=== PATIENT | female | born 1995 | race African-American/Black ===

== ENCOUNTER 2017-07-05 07:54 | Emergency (ER) | payer OTHER ==
--- NOTE | 2017-07-05 09:22 | RAD REPORT ---
EXAM DESCRIPTION: RAD - Chest Single View - 07/05/2017 9:17 am CLINICAL HISTORY: Productive cough COMPARISON: 02/08/2017 FINDINGS: Portable technique limits examination quality. The lungs are grossly clear. The heart is normal in size. No displaced fractures. IMPRESSION: No acute intrathoracic process suspected.
--- NOTE | 2017-07-05 09:36 | ER ---
Nurse's Notes [facility] Name: Heather Paul Age: 21 yrs Sex: Female : 1995 Arrival Date: 07/05/2017 Time: 07:56 Bed 19 Private MD: Diagnosis: Acute bronchitis;Pleurisy Presentation: 07/05 08:21 Presenting complaint: Patient states: has had productive cough, nasal congestion, no iw fever X 3 days, also has intermittent midsternal CP radiating to left side and left arm tingling, pain is 0/10 now, at worst is 7/10, described as sharp. Transition of care: patient was not received from another setting of care. Onset of symptoms was July 02, 2017. Initial Sepsis Screen: Does the patient meet any 2 criteria? No. Patient's initial sepsis screen is negative. Does the patient have a suspected source of infection? No. Patient's initial sepsis screen is negative. Care prior to arrival: None. 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 - Social history:: Smoking status: Patient/guardian denies using tobacco. Screenin:26 Abuse screen: Denies threats or abuse. Nutritional screening: No deficits noted. em Tuberculosis screening: No symptoms or risk factors identified. Fall Risk None identified. Assessment: 08:21 General: Appears in no apparent distress. comfortable, Behavior is calm, cooperative. em Pain: Denies pain. Pain does not radiate. Pain began 2-3 days ago. Neuro: Level of Consciousness is awake, alert, obeys commands, Oriented to person, place, time, situation. Cardiovascular: Heart tones S1 S2 present Capillary refill < 3 seconds Patient's skin is warm and dry. Rhythm is sinus rhythm. Respiratory: Airway is patent Respiratory effort is even, unlabored, Respiratory pattern is regular, symmetrical. Respiratory: Reports cough that is productive, Breath sounds are clear bilaterally. GI: Abdomen is flat. : Urine is clear. EENT: Oral mucosa is moist. Throat is clear is pink. Derm: Skin is intact, Skin is pink, warm \T\ dry. Musculoskeletal: Range of motion: intact in all extremities. 08:45 Reassessment: Patient appears in no apparent distress at this time. I agree with the iw assessment by Robson Ferrer LVN. 09:30 Reassessment: Patient appears in no apparent distress at this time. Patient states em feeling better. Patient states symptoms have improved. Vital Signs: 08:26 BP 107 / 73; Pulse 69; Resp 16; Temp 98.2(TE); Pulse Ox 100% on R/A; Weight 74.84 kg; iw Height 5 ft. 7 in. (170.18 cm); Pain 0/10; 09:30 BP 106 / 78; Pulse 62; Resp 16; Pulse Ox 99% on R/A; Pain 0/10; em 08:26 Body Mass Index 25.84 (74.84 kg, 170.18 cm) iw ED Course: 07:56 Patient arrived in ED. mr 08:08 Red Pacheco MD is Attending Physician. wa 08:13 Nicanor Graber PA is PHCP. jr8 08:15 Robson Ferrer LVN is Primary Nurse. em 08:23 Triage completed. iw 08:26 No provider procedures requiring assistance completed. Patient did not have IV access em during this emergency room visit. Patient maintains SpO2 saturation greater than 95% on room air. 08:26 Patient has correct armband on for positive identification. Bed in low position. Call em light in reach. Side rails up X2. Pulse ox on. NIBP on. 08:26 Arm band placed on. em 08:43 EKG done, by plant and maintenance technician. reviewed by Nicanor WELLINGTON. vh 09:18 XRAY Chest (1 view) In Process Unspecified. EDMS Administered Medications: No medications were administered Outcome: 09:35 Discharge ordered by . jr8 09:53 Discharged to home ambulatory. em 09:53 Condition: good 09:53 Discharge instructions given to patient, Instructed on discharge instructions, follow up and referral plans. medication usage, Demonstrated understanding of instructions, follow-up care, medications, Prescriptions given X 2. 09:53 Patient left the ED. em Signatures: Dispatcher [employer] EDNV Simi Tavares Robson Ferrer LVN LVN em Molly Clay, RN RN Nicanor Barker PA PA jr8 Tanisha Metz Red Pacheco MD MD wi
--- NOTE | 2017-07-05 09:36 | EDPHYS ---
Physician Documentation [facility] Name: Heather Paul Age: 21 yrs Sex: Female : 1995 Arrival Date: 07/05/2017 Time: 07:56 Bed 19 Private MD: ED Physician Red Pacheco HPI: 07/05 08:24 This 21 yrs old Black Female presents to ER via Ambulatory with complaints of jr8 cough/Chest Pain. 08:24 The patient or guardian reports cough, that is intermittent, described as moderate, jr8 with productive sputum, that is green. Onset: The symptoms/episode began/occurred acutely, 2 day(s) ago. Severity of symptoms: At their worst the symptoms were mild, in the emergency department the symptoms are unchanged. Modifying factors: The symptoms are alleviated by nothing, the symptoms are aggravated by nothing. Associated signs and symptoms: Pertinent positives: chest pain, with cough. The patient has not experienced similar symptoms in the past. The patient has not recently seen a physician. 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 - Social history:: Smoking status: Patient/guardian denies using tobacco. ROS: 08:24 Eyes: Negative for injury, pain, redness, and discharge, Neck: Negative for injury, jr8 pain, and swelling, Abdomen/GI: Negative for abdominal pain, nausea, vomiting, diarrhea, and constipation, Back: Negative for injury and pain, MS/Extremity: Negative for injury and deformity, Skin: Negative for injury, rash, and discoloration, Neuro: Negative for headache, weakness, numbness, tingling, and seizure. 08:24 ENT: Positive for rhinorrhea, sinus congestion, Negative for drainage from ear(s), ear pain, sore throat, difficulty swallowing, difficulty handling secretions, hoarseness. 08:24 Cardiovascular: Positive for chest pain, with cough, Negative for edema, orthopnea, palpitations, paroxysmal nocturnal dyspnea. 08:24 Respiratory: Positive for cough, shortness of breath, Negative for dyspnea on exertion. Exam: 08:24 Eyes: Pupils equal round and reactive to light, extra-ocular motions intact. Lids and jr8 lashes normal. Conjunctiva and sclera are non-icteric and not injected. Cornea within normal limits. Periorbital areas with no swelling, redness, or edema. ENT: Nares patent. No nasal discharge, no septal abnormalities noted. Tympanic membranes are normal and external auditory canals are clear. Oropharynx with no redness, swelling, or masses, exudates, or evidence of obstruction, uvula midline. Mucous membranes moist. Neck: Trachea midline, no thyromegaly or masses palpated, and no cervical lymphadenopathy. Supple, full range of motion without nuchal rigidity, or vertebral point tenderness. No Meningismus. Cardiovascular: Regular rate and rhythm with a normal S1 and S2. No gallops, murmurs, or rubs. Normal PMI, no JVD. No pulse deficits. Respiratory: Lungs have equal breath sounds bilaterally, clear to auscultation and percussion. No rales, rhonchi or wheezes noted. No increased work of breathing, no retractions or nasal flaring. Abdomen/GI: Soft, non-tender, with normal bowel sounds. No distension or tympany. No guarding or rebound. No evidence of tenderness throughout. Back: No spinal tenderness. No costovertebral tenderness. Full range of motion. Skin: Warm, dry with normal turgor. Normal color with no rashes, no lesions, and no evidence of cellulitis. MS/ Extremity: Pulses equal, no cyanosis. Neurovascular intact. Full, normal range of motion. Neuro: Awake and alert, GCS 15, oriented to person, place, time, and situation. Cranial nerves II-XII grossly intact. Motor strength 5/5 in all extremities. Sensory grossly intact. Cerebellar exam normal. Normal gait. 08:24 Chest/axilla: Palpation: tenderness, that is mild, of the anterior aspect of right upper chest, anterior aspect of left upper chest and mid-sternal area. Vital Signs: 08:26 BP 107 / 73; Pulse 69; Resp 16; Temp 98.2(TE); Pulse Ox 100% on R/A; Weight 74.84 kg; iw Height 5 ft. 7 in. (170.18 cm); Pain 0/10; 09:30 BP 106 / 78; Pulse 62; Resp 16; Pulse Ox 99% on R/A; Pain 0/10; em 08:26 Body Mass Index 25.84 (74.84 kg, 170.18 cm) iw MDM: 08:08 Patient medically screened. ms 09:33 Data reviewed: vital signs, nurses notes, EKG, radiologic studies, plain films, and as a result, I will discharge patient. Data interpreted: Pulse oximetry: on room air is 100 %. Interpretation: normal. Counseling: I had a detailed discussion with the patient and/or guardian regarding: the historical points, exam findings, and any diagnostic results supporting the discharge/admit diagnosis, lab results, radiology results, the need for outpatient follow up, a family practitioner, to return to the emergency department if symptoms worsen or persist or if there are any questions or concerns that arise at home. 07/05 09:00 Order name: Urine Dipstick--Ancillary (enter results) [facility] 07/05 09:00 Order name: Urine --Ancillary (enter results) [facility] 07/05 08:21 Order name: EKG; Complete Time: 08:34 [facility] 07/05 08:21 Order name: EKG - Nurse/Tech; Complete Time: 08:45 [facility] 07/05 08:21 Order name: XRAY Chest (1 view); Complete Time: 09:33 [facility] 07/05 08:21 Order name: Urine Test (obtain specimen); Complete Time: 08:56 [facility] 07/05 08:21 Order name: Urine Dipstick-Ancillary (obtain specimen); Complete Time: 08:56 jr8 Administered Medications: No medications were administered Disposition: 07/05/17 09:35 Discharged to Home. Impression: Acute bronchitis, Pleurisy. - Condition is Stable. - Discharge Instructions: Acute Bronchitis, Pleurisy. - Prescriptions for Ibuprofen 800 mg Oral Tablet - take 1 tablet by ORAL route every 12 hours As needed take with food; 20 tablet. Prednisone 20 mg Oral Tablet - take 2 tablet by ORAL route once daily for 5 days; 10 tablet. - Work release form, Medication Reconciliation Form, Thank You Letter, Antibiotic Education, Prescription Opioid Use form. - Follow up: Private Physician; When: 1 - 2 days; Reason: Recheck today's complaints, Continuance of care, Re-evaluation by your physician. - Problem is new. - Symptoms are unchanged. Addendum: 07/07/2017 06:35 Co-signature as Attending Physician, Red Pacheco MD I agree with the assessment and w a plan of care. Signatures: Dispatcher [employer] Robson Stewart, CRAB MEAT PROCESSOR CRAB MEAT PROCESSOR Molly Elmore, RN RN Nicanor Barker, PA PA jr8 Red Pacheco MD MD wa Corrections: (The following items were deleted from the chart) 07/05 09:53 09:35 07/05/2017 09:35 Discharged to Home. Impression: Acute bronchitis; Pleurisy. em Condition is Stable. Forms are Medication Reconciliation Form, Thank You Letter, Antibiotic Education, Prescription Opioid Use. Follow up: Private Physician; When: 1 - 2 days; Reason: Recheck today's complaints, Continuance of care, Re-evaluation by your physician. Problem is new. Symptoms are unchanged. jr8
[2017-07-05 09:58] VITALS: TEMP 98.2
[2017-07-05 09:59] VITALS: BP 106/78; O2SAT 99
[2017-07-05 10:02] LABS: Urine Blood TRACE (NEG); Urine Glucose NEGATIVE (NEG); Urine Protein NEGATIVE (NEG); Urine Specific Gravity 1.025 (1.005-1.030); Urine pH 6.5 (5.0-7.0)
--- NOTE | 2017-07-05 10:19 | EKG ---
Test Date: 2017-07-05 Test Time: 08:38:24 Laboratory Animal Care Veterinarian: SANTOS MEASUREMENT RESULTS: Intervals: Rate: 62 MD: 182 QRSD: 82 QT: 394 QTc: 399 [place]: P: 54 MD: 182 QRS: 56 T: 15 INTERPRETIVE STATEMENTS: Normal sinus rhythm Normal ECG Compared to ECG 02/08/2017 11:37:46 Sinus arrhythmia no longer present T-wave abnormality no longer present Electronically Signed On 07-05-17 10:18:34 CDT by Royer Valdez
== END 2017-07-05 09:53 | disposition home or self-care (01) ==
LOC: ER 07:54
DX: J20.9 Acute bronchitis, unspecified (principal); R09.1 Pleurisy
CPT/HCPCS: 71045; 81003; 81025; 93005; 99285

== ENCOUNTER 2018-02-07 13:02 | Emergency (ER) | payer OTHER ==
[2018-02-07 14:18] LABS: Urine Blood TRACE (NEG); Urine Glucose NEGATIVE (NEG); Urine Protein NEGATIVE (NEG); Urine pH 8.5 (5.0-7.0)
--- NOTE | 2018-02-07 15:00 | ER ---
Nurse's Notes [facility] Name: Heather Paul Age: 22 yrs Sex: Female : 1995 Arrival Date: 02/07/2018 Time: 13:03 Bed 18 Private MD: Diagnosis: Influenza due to certain identified influenza viruses Presentation: 02/07 13:07 Presenting complaint: Patient states: i went to the doctor yesterday and they told me i tw2 had the flu but i feel very dehydrated and i am short of breath. Transition of care: patient was not received from another setting of care. Onset of symptoms was February 07, 2018. Risk Assessment: Do you want to hurt yourself or someone else? Patient reports no desire to harm self or others. Initial Sepsis Screen: Does the patient meet any 2 criteria? No. Patient's initial sepsis screen is negative. Does the patient have a suspected source of infection? No. Patient's initial sepsis screen is negative. Care prior to arrival: None. 13:07 Method Of Arrival: Ambulatory tw2 13:07 Acuity: ALISA 4 tw2 13:08 Presenting complaint: Patient states: and i am having chest pains. 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 - Social history:: Smoking status: Patient/guardian denies using tobacco. - Ebola Screening: : Patient denies travel to an Ebola-affected area in the 21 days before illness onset. Screenin:30 Abuse screen: Denies threats or abuse. Denies injuries from another. Nutritional aj screening: No deficits noted. Tuberculosis screening: No symptoms or risk factors identified. Fall Risk None identified. Assessment: 13:40 General: Appears in no apparent distress. comfortable, Behavior is calm, cooperative, aj appropriate for age. Pain: Denies pain. Neuro: Level of Consciousness is awake, alert, obeys commands, Oriented to person, place, time, situation, Appropriate for age. Respiratory: Airway is patent Respiratory effort is even, unlabored, Respiratory pattern is regular, symmetrical. GI: Reports nausea. Derm: Skin is intact, is healthy with good turgor, Skin is pink, warm \T\ dry. normal. 14:30 Reassessment: Patient appears in no apparent distress at this time. Patient and/or ph family updated on plan of care and expected duration. Pain level reassessed. Patient is alert, oriented x 3, equal unlabored respirations, skin warm/dry/pink. 15:44 Reassessment: Patient appears in no apparent distress at this time. Patient and/or ph family updated on plan of care and expected duration. Pain level reassessed. Patient is alert, oriented x 3, equal unlabored respirations, skin warm/dry/pink. Pt d/c home w/ work note. Vital Signs: 13:07 BP 126 / 70; Pulse 91; Resp 17; Temp 98.1(O); Pulse Ox 100% on R/A; Pain 8/10; tw2 15:44 BP 118 / 64; Pulse 87; Resp 18; Temp 97.8; Pulse Ox 98% on R/A; ph ED Course: 13:03 Patient arrived in ED. sb2 13:07 Triage completed. tw2 13:08 Arm band placed on. tw2 13:09 Farheen Lopez FNP-C is [facility]. kb 13:09 Sinan Sepulveda MD is Attending Physician. kb 13:09 Kaia Braga, RN is Primary Nurse. aj 13:54 Urine Dipstick--Ancillary (enter results) Sent. aj 13:54 Urine --Ancillary (enter results) Sent. aj 15:45 No provider procedures requiring assistance completed. Patient did not have IV access ph during this emergency room visit. 15:46 Patient has correct armband on for positive identification. ph Administered Medications: 13:50 Drug: Zofran 4 mg Route: PO; aj Outcome: 15:00 Discharge ordered by . kb 15:45 Discharged to home ambulatory. ph 15:45 Condition: good 15:45 Discharge instructions given to patient, Instructed on discharge instructions, follow up and referral plans. Demonstrated understanding of instructions, follow-up care. 15:46 Patient left the ED. ph Signatures: Farheen Lopez FNP-C FNP-Kaia Ariza RN Marni Robbins RN RN ph Natalie Hernández RN RN tw2 Billeau, Gabrielle sb2
--- NOTE | 2018-02-07 15:00 | EDPHYS ---
Physician Documentation [facility] Name: Heather Paul Age: 22 yrs Sex: Female : 1995 Arrival Date: 02/07/2018 Time: 13:03 Bed 18 Private MD: ED Physician Sinan Sepulveda HPI: 02/07 13:53 This 22 yrs old Black Female presents to ER via Ambulatory with complaints of Flu kb Symptoms. 13:53 The patient or guardian reports cough, that is intermittent, described as moderate, kb with no sputum, flu symptoms, myalgias. Onset: The symptoms/episode began/occurred 3 day(s) ago. Severity of symptoms: At their worst the symptoms were mild, moderate, in the emergency department the symptoms are unchanged. Modifying factors: The symptoms are alleviated by nothing, the symptoms are aggravated by nothing. Associated signs and symptoms: Pertinent positives: fever, vomiting, Pertinent negatives: chest pain, diarrhea, ear ache, nausea, rhinorrhea, sore throat. The patient has not experienced similar symptoms in the past. The patient has been recently seen by a physician: the patient's primary care provider, yesterday, with similar presenting complaints, and apparently given a diagnosis of flu. Pt reports cough, shortness of breath, malaise, weakness, fatigue, vomiting, and body aches. Was diagnosed with the flu yesterday, but "they didn't give me anything.". 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 - Social history:: Smoking status: Patient/guardian denies using tobacco. - Ebola Screening: : Patient denies travel to an Ebola-affected area in the 21 days before illness onset. ROS: 13:52 ENT: Negative for injury, pain, and discharge, Neck: Negative for injury, pain, and kb swelling, Cardiovascular: Negative for chest pain, palpitations, and edema, Abdomen/GI: Negative for abdominal pain, nausea, vomiting, diarrhea, and constipation, Back: Negative for injury and pain, : Negative for injury, bleeding, discharge, and swelling, MS/Extremity: Negative for injury and deformity, Skin: Negative for injury, rash, and discoloration, Neuro: Negative for headache, weakness, numbness, tingling, and seizure. 13:52 Constitutional: Positive for body aches, chills, fatigue, fever, malaise, Negative for poor PO intake, weight loss. 13:52 Respiratory: Positive for cough, shortness of breath. Exam: 13:52 Constitutional: This is a well developed, well nourished patient who is awake, alert, kb and in no acute distress. Head/Face: Normocephalic, atraumatic. ENT: Nares patent. No nasal discharge, no septal abnormalities noted. Tympanic membranes are normal and external auditory canals are clear. Oropharynx with no redness, swelling, or masses, exudates, or evidence of obstruction, uvula midline. Mucous membranes moist. Neck: Trachea midline, no thyromegaly or masses palpated, and no cervical lymphadenopathy. Supple, full range of motion without nuchal rigidity, or vertebral point tenderness. No Meningismus. Chest/axilla: Normal chest wall appearance and motion. Nontender with no deformity. No lesions are appreciated. Cardiovascular: Regular rate and rhythm with a normal S1 and S2. No gallops, murmurs, or rubs. Normal PMI, no JVD. No pulse deficits. Respiratory: Lungs have equal breath sounds bilaterally, clear to auscultation and percussion. No rales, rhonchi or wheezes noted. No increased work of breathing, no retractions or nasal flaring. Abdomen/GI: Soft, non-tender, with normal bowel sounds. No distension or tympany. No guarding or rebound. No evidence of tenderness throughout. Skin: Warm, dry with normal turgor. Normal color with no rashes, no lesions, and no evidence of cellulitis. MS/ Extremity: Pulses equal, no cyanosis. Neurovascular intact. Full, normal range of motion. Neuro: Awake and alert, GCS 15, oriented to person, place, time, and situation. Cranial nerves II-XII grossly intact. Motor strength 5/5 in all extremities. Sensory grossly intact. Cerebellar exam normal. Normal gait. Vital Signs: 13:07 BP 126 / 70; Pulse 91; Resp 17; Temp 98.1(O); Pulse Ox 100% on R/A; Pain 8/10; tw2 15:44 BP 118 / 64; Pulse 87; Resp 18; Temp 97.8; Pulse Ox 98% on R/A; ph MDM: 13:09 Patient medically screened. kb 13:51 Data reviewed: vital signs, nurses notes. Data interpreted: Pulse oximetry: on room air kb is 100 %. Interpretation: normal. Counseling: I had a detailed discussion with the patient and/or guardian regarding: the historical points, exam findings, and any diagnostic results supporting the discharge/admit diagnosis, lab results, radiology results, the need for outpatient follow up, a family practitioner, to return to the emergency department if symptoms worsen or persist or if there are any questions or concerns that arise at home. 02/07 13:51 Order name: Urine Dipstick--Ancillary (enter results) lt1 02/07 13:51 Order name: Urine --Ancillary (enter results) lt1 02/07 13:23 Order name: Chest Single View XRAY kb 02/07 14:19 Order name: Urine --Ancillary; Complete Time: 14:19 EDMS 02/07 14:19 Order name: Urine Dipstick-Ancillary; Complete Time: 14:19 EDMS 02/07 13:23 Order name: PO challenge; Complete Time: 13:34 kb 02/07 13:23 Order name: Urine Dipstick-Ancillary (obtain specimen); Complete Time: 13:54 kb Administered Medications: 13:50 Drug: Zofran 4 mg Route: PO; gretchen Disposition: 17:42 Co-signature as Attending Physician, Sinan Sepulveda MD I agree with the assessment and rn plan of care. Disposition: 02/07/18 15:00 Discharged to Home. Impression: Influenza due to certain identified influenza viruses. - Condition is Stable. - Discharge Instructions: Influenza, Adult, [id number]. - Medication Reconciliation Form, Thank You Letter, Antibiotic Education, Prescription Opioid Use, Work release form form. - Follow up: Emergency Department; When: As needed; Reason: Worsening of condition. Follow up: Private Physician; When: 2 - 3 days; Reason: Recheck today's complaints, Continuance of care, Re-evaluation by your physician. Signatures: Dispatcher [employer] EDFarheen Devine, STRETCHER DRIER OPERATOR-C STRETCHER DRIER OPERATOR-Kaia Ariza RN Sinan Rinaldi MD MD rn Hall, Patricia, RN RN Hernández, CHRISTEN Estrada RN tw2 Corrections: (The following items were deleted from the chart) 15:46 15:00 02/07/2018 15:00 Discharged to Home. Impression: Influenza due to certain ph identified influenza viruses. Condition is Stable. Forms are Medication Reconciliation Form, Thank You Letter, Antibiotic Education, Prescription Opioid Use. Follow up: Emergency Department; When: As needed; Reason: Worsening of condition. Follow up: Private Physician; When: 2 - 3 days; Reason: Recheck today's complaints, Continuance of care, Re-evaluation by your physician. kb
[2018-02-07 16:12] VITALS: BP 118/64; TEMP 97.8; O2SAT 98
--- NOTE | 2018-02-07 17:44 | RAD REPORT ---
EXAM DESCRIPTION: Omar Single View02/07/2018 2:23 pm CLINICAL HISTORY: sob COMPARISON: February 2017 FINDINGS: The lungs appear clear of acute infiltrate. The heart is normal size IMPRESSION: No acute abnormalities displayed
== END 2018-02-07 15:46 | disposition home or self-care (01) ==
LOC: ER 13:02
DX: J11.1 Influenza due to unidentified influenza virus with other respiratory manifestations (principal)
CPT/HCPCS: 71045; 81003; 81025; 99283

== ENCOUNTER 2018-06-15 10:19 | Emergency (ER) | payer OTHER ==
[2018-06-15 11:03] LABS: Urine Blood TRACE (NEG); Urine Glucose NEGATIVE (NEG); Urine Protein NEGATIVE (NEG); Urine Specific Gravity 1.025 (1.005-1.030); Urine pH 6.5 (5.0-7.0)
[2018-06-15 11:31] LABS: Urine Bacteria 20-50 /HPF (<20); Urine Culture Reflex Order REFLEXED; Urine Mucus 1+ /HPF (NONE SEEN)
--- NOTE | 2018-06-15 12:04 | EDPHYS ---
Physician Documentation [facility] Name: Heather Paul Age: 22 yrs Sex: Female : 1995 Arrival Date: 06/15/2018 Time: 10:23 Bed 20 Private MD: Unknown, Unknown ED Physician Raymond Shelley HPI: 06/15 10:57 This 22 yrs old Black Female presents to ER via Ambulatory with complaints of Abdominal jmm Pain, Fever. 10:57 The patient or guardian reports cough, described as moderate. Onset: The jmm symptoms/episode began/occurred gradually, 2 week(s) ago. This is a 22 year old female with a history of asthma that presents to the ED with complaints of cough for 2 week. Patient states she was recently recovering from bronchitis. Patient states she developed a fever with congestion 2 days ago. Denies sore throat. Patient is also concerned she is . Patient has had intermittent episodes of abdominal pain and pelvic pain. Patient states she missed her period last month. Patient states she saw her pcp with a negative upt. Patient states she took a home test at home last night which was positive. Patient currently denies abdominal pain, denies pelvic pain, denies vomiting, denies diarrhea. . 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 - Social history:: Smoking status: Patient/guardian denies using tobacco. - Ebola Screening: : Patient negative for fever greater than or equal to 101.5 degrees Fahrenheit, and additional compatible Ebola Virus Disease symptoms Patient denies exposure to infectious person Patient denies travel to an Ebola-affected area in the 21 days before illness onset No symptoms or risks identified at this time. ROS: 10:57 Constitutional: Positive for fever. jmm 10:57 ENT: Positive for sinus congestion. 10:57 Respiratory: Positive for cough. 10:57 Abdomen/GI: Positive for abdominal pain, Negative for nausea and vomiting, diarrhea. 10:57 All other systems are negative. Exam: 10:57 Constitutional: This is a well developed, well nourished patient who is awake, alert, jmm and in no acute distress. Head/Face: atraumatic. Eyes: EOMI, no conjunctival erythema appreciated 10:57 Neck: Trachea midline, Supple Chest/axilla: Normal chest wall appearance and motion. Cardiovascular: Regular rate and rhythm. No edema appreciated 10:57 ENT: Posterior pharynx: erythema, that is moderate, exudate, is not appreciated. 10:57 Respiratory: the patient does not display signs of respiratory distress, Respirations: normal, Breath sounds: are clear throughout. 10:57 Abdomen/GI: Inspection: abdomen appears normal, Bowel sounds: normal, Palpation: abdomen is soft and non-tender, in all quadrants. 10:57 Abdomen/GI: Palpation: abdomen is soft and non-tender. 10:57 Back: pain, CVA tenderness, is absent. 10:57 Musculoskeletal/extremity: ROM: intact in all extremities. 10:57 Skin: Appearance: Color: normal in color. 10:57 Neuro: Orientation: is normal, Mentation: is normal, Memory: is normal. 10:57 Psych: Behavior/mood is pleasant, cooperative. Vital Signs: 10:55 BP 103 / 57; Pulse 85; Resp 16; Temp 98.1(O); Pulse Ox 100% on R/A; Pain 6/10; iw MDM: 10:57 Patient medically screened. [facility] 12:03 Data reviewed: vital signs, nurses notes. Counseling: I had a detailed discussion with inga the patient and/or guardian regarding: the historical points, exam findings, and any diagnostic results supporting the discharge/admit diagnosis, the need for outpatient follow up, to return to the emergency department if symptoms worsen or persist or if there are any questions or concerns that arise at home. 12:25 ED course: Patient is alert and non toxic in appearance in the ED. Abdomen is soft and jmm non tender to palpation. I do not suspect an acute intraabdominal process. Patient was given strict return precautions if symptoms worsen. Patient understood and agrees with the plan of care. . 06/15 10:56 Order name: Urine Dipstick--Ancillary (enter results); Complete Time: 11:36 sg 06/15 10:56 Order name: Urine --Ancillary (enter results); Complete Time: 11:36 06/15 10:56 Order name: Urine Microscopic Only; Complete Time: 11:36 06/15 10:58 Order name: Flu; Complete Time: 12:00 [facility] 06/15 10:58 Order name: Strep; Complete Time: 12:00 [facility] 06/15 11:33 Order name: Urine Culture EDMS 06/15 11:41 Order name: Throat Culture EDMS Administered Medications: No medications were administered Disposition: 12:03 Chart complete. Chart complete. [facility] Disposition: 06/15/18 12:04 Discharged to Home. Impression: Influenza due to certain identified influenza viruses, Urinary tract infection, site not specified. - Condition is Stable. - Discharge Instructions: Urinary Tract Infection, Adult. - Prescriptions for cefdinir 300 mg Oral capsule - take 1 capsule by ORAL route every 12 hours; 20 capsule. Tamiflu 75 mg Oral Capsule - take 1 tablet by ORAL route every 12 hours for 5 days; 10 tablet. - Medication Reconciliation Form, Thank You Letter, Antibiotic Education, Prescription Opioid Use form. - Follow up: Private Physician; When: 2 - 3 days; Reason: Recheck today's complaints, Continuance of care, Re-evaluation by your physician. Addendum: 06/18/2018 08:23 Co-signature as Attending Physician, Raymond Shelley MD I agree with the assessment and k dr plan of care. Signatures: Dispatcher [employer] [facility] Raymond Shelley MD MD [facility] Salvador Stephen PA PA [facility] Molly Clay RN RN iw Corrections: (The following items were deleted from the chart) 06/15 12:20 12:04 06/15/2018 12:04 Discharged to Home. Impression: Influenza due to certain identified influenza viruses; Urinary tract infection, site not specified. Condition is Stable. Forms are Medication Reconciliation Form, Thank You Letter, Antibiotic Education, Prescription Opioid Use. Follow up: Private Physician; When: 2 - 3 days; Reason: Recheck today's complaints, Continuance of care, Re-evaluation by your physician. [facility]
--- NOTE | 2018-06-15 12:04 | ER ---
Nurse's Notes [facility] Name: Heather Paul Age: 22 yrs Sex: Female : 1995 Arrival Date: 06/15/2018 Time: 10:23 Bed 20 Private MD: Unknown, Unknown Diagnosis: Influenza due to certain identified influenza viruses;Urinary tract infection, site not specified Presentation: 06/15 10:50 Presenting complaint: Presenting complaint: Patient states: had 2 positive home iw tests and one negative test at her doctor office, states she had blood drawn and her hormone level was elevated, now c/o lower abd pain, denies vaginal bleeding, denies urinary s/s. 10:51 Transition of care: patient was not received from another setting of care. Onset of iw symptoms was June 15, 2018. Risk Assessment: Do you want to hurt yourself or someone else? Patient reports no desire to harm self or others. Initial Sepsis Screen: Does the patient meet any 2 criteria? No. Patient's initial sepsis screen is negative. Does the patient have a suspected source of infection? No. Patient's initial sepsis screen is negative. Care prior to arrival: None. 10:51 Method Of Arrival: Ambulatory 10:51 Acuity: ALISA 3 iw Triage Assessment: 12:15 General: Behavior is calm, cooperative. 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 - Social history:: Smoking status: Patient/guardian denies using tobacco. - Ebola Screening: : Patient negative for fever greater than or equal to 101.5 degrees Fahrenheit, and additional compatible Ebola Virus Disease symptoms Patient denies exposure to infectious person Patient denies travel to an Ebola-affected area in the 21 days before illness onset No symptoms or risks identified at this time. Screenin:10 Abuse screen: Denies threats or abuse. Nutritional screening: No deficits noted. em Tuberculosis screening: No symptoms or risk factors identified. Fall Risk None identified. Assessment: 11:20 General: Appears in no apparent distress. comfortable, Behavior is calm, cooperative, em Reports fever for. Pain: Complains of pain in suprapubic area Pain currently is 6 out of 10 on a pain scale. Neuro: Level of Consciousness is awake, alert, obeys commands, Oriented to person, place, time, situation. Cardiovascular: Capillary refill < 3 seconds Patient's skin is warm and dry. Respiratory: Airway is patent Respiratory effort is even, unlabored, Respiratory pattern is regular, symmetrical. GI: Abdomen is flat, Bowel sounds present X 4 quads. Abd is soft and non tender X 4 quads. Patient currently denies nausea, vomiting. : Denies burning with urination, discharge, urinary frequency, vaginal bleeding. Derm: Skin is intact, is healthy with good turgor, Skin is pink, warm \T\ dry. Musculoskeletal: Capillary refill < 3 seconds, Range of motion: intact in all extremities. 12:19 Reassessment: Patient appears in no apparent distress at this time. Patient and/or iw family updated on plan of care and expected duration. Pain level reassessed. Patient is alert, oriented x 3, equal unlabored respirations, skin warm/dry/pink. General: Appears in no apparent distress. Pain: Complains of pain in abdomen. Neuro: Level of Consciousness is awake, alert, obeys commands, Moves all extremities. Full function. Cardiovascular: Patient's skin is warm and dry. GI: Bowel sounds present X 4 quads. Abd is soft and non tender X 4 quads. Derm: Skin is intact, is healthy with good turgor. Musculoskeletal: Range of motion: intact in all extremities. Vital Signs: 10:55 BP 103 / 57; Pulse 85; Resp 16; Temp 98.1(O); Pulse Ox 100% on R/A; Pain 6/10; iw ED Course: 10:23 Patient arrived in ED. ag5 10:23 Unknown, Unknown is Private Physician. 5 10:41 [facility] 10:41 Raymond Shelley MD is Attending Physician. [facility] 10:55 Triage completed. iw 10:56 Arm band placed on. iw 11:07 Strep Sent. 5 11:08 Patient has correct armband on for positive identification. Bed in low position. Call [facility] light in reach. Pulse ox on. NIBP on. 11:08 Flu Sent. mh5 11:08 Urine collected: clean catch specimen, cloudy, Flu and/or RSV swab sent to lab. Strep 5 swab sent to lab. 11:17 Robson Ferrer LVN is Primary Nurse. em 12:10 No provider procedures requiring assistance completed. Patient did not have IV access em during this emergency room visit. Administered Medications: No medications were administered Outcome: 12:04 Discharge ordered by . vernon 12:10 Discharged to home ambulatory. em 12:10 Condition: good 12:10 Discharge instructions given to patient, Instructed on discharge instructions, follow up and referral plans. medication usage, Demonstrated understanding of instructions, follow-up care, medications, Prescriptions given X 2. 12:20 Patient left the ED. Signatures: Salvador Stephen PA PA jmm Munoz, Edgar, LVN LVN em Molly Clay, CHRISTEN RN Simi Quinonez 5 Gatito Burdick 5 Corrections: (The following items were deleted from the chart) 10:55 10:50 Presenting complaint: iw iw
[2018-06-15 12:30] VITALS: BP 103/57; TEMP 98.1; O2SAT 100
== END 2018-06-15 12:20 | disposition home or self-care (01) ==
LOC: ER 10:19
DX: J10.1 Influenza due to other identified influenza virus with other respiratory manifestations (principal); N39.0 Urinary tract infection, site not specified; J45.909 Unspecified asthma, uncomplicated
CPT/HCPCS: 81003; 81015; 81025; 87070; 87081; 87086; 87088; 87804; 99283

== ENCOUNTER 2018-07-19 05:12 | Emergency (ER) | payer OTHER ==
--- OUTSIDE RECORDS SUMMARY | 2018-07-19 05:14 | XMS REPORT ---
:1995 [facility] Address [address] [place] [address] Dr. Prado [address] [place] [id number] Care Team Providers Name Role Phone Unavailable Unavailable Unavailable Problems This patient has no known problems. Allergies, Adverse Reactions, Alerts This patient has no known allergies or adverse reactions. Medications This patient has no known medications.
[2018-07-19] MEDS ORDERED: ACETAMINOPHEN 500 MG TAB ONE (06:28)
[2018-07-19] MEDS ORDERED: ONDANSETRON 4 MG/2 ML VIAL ONE (06:28)
[2018-07-19] MEDS ORDERED: KETOROLAC 30 MG/ML INJ ONE (06:28)
[2018-07-19 06:36] LABS: Urine Bacteria 20-50 /HPF (<20); Urine RBC <5 /HPF (NONE SEEN)
[2018-07-19 06:37] LABS: Absolute Lymphocytes (CBC) 2.2 K/uL (0.7-4.9); Absolute Monocytes 0.6 K/uL (0.1-1.3); Absolute Neutrophil 2.8 K/uL (1.8-8.0); Basophils % 1.4 % (0-1.3); Eosinophils % 4.2 % (0-4.4); Hematocrit 39.6 % (36.0-45.0); Lymphocytes % 37.3 % (15.3-44.8); MPV 9.6 fL (7.6-11.3); Monocytes % 9.8 % (3.3-12.3); RBC Red Blood Cell Count 4.68 M/uL (3.86-4.86)
[2018-07-19 06:37] LABS: Urine Culture Reflex Order REFLEXED
[2018-07-19 06:53] LABS: BUN Blood Urea Nitrogen 13 mg/dL (7-18); Bicarbonate 28 mmol/L (21-32); Glucose Level 79 mg/dL (74-106); Potassium 3.7 mmol/L (3.5-5.1); Sodium Level 140 mmol/L (136-145)
--- NOTE | 2018-07-19 07:19 | ER ---
Nurse's Notes [facility] Name: Heather Paul Age: 22 yrs Sex: Female : 1995 Arrival Date: 07/19/2018 Time: 05:13 Bed 19 Private MD: Diagnosis: Other and unspecified ovarian cysts-right Presentation: 07/19 05:21 Presenting complaint: Patient states: I am having really bad pelvic pain and back pain. ed1 Transition of care: patient was not received from another setting of care. Onset of symptoms was July 17, 2018. Risk Assessment: Do you want to hurt yourself or someone else? Patient reports no desire to harm self or others. Initial Sepsis Screen: Does the patient meet any 2 criteria? No. Patient's initial sepsis screen is negative. Does the patient have a suspected source of infection? No. Patient's initial sepsis screen is negative. Care prior to arrival: None. 05:21 Method Of Arrival: Ambulatory ed1 05:21 Acuity: ALISA 3 ed1 Triage Assessment: 05:23 General: Appears uncomfortable, Behavior is calm, cooperative. Pain: Complains of pain ed1 in low back area and right lower quadrant Pain currently is 7 out of 10 on a pain scale. Quality of pain is described as sharp. EENT: No signs and/or symptoms were reported regarding the EENT system. Neuro: Level of Consciousness is awake, alert, obeys commands, Oriented to person, place, time, situation. Cardiovascular: Denies chest pain, Heart tones S1 S2 present. Respiratory: Airway is patent Respiratory effort is even, unlabored, Respiratory pattern is regular, symmetrical, Breath sounds are clear bilaterally. GI: Abdomen is non-distended, Bowel sounds present X 4 quads. Abd is soft and non tender X 4 quads. Reports lower abdominal pain, Patient currently denies diarrhea, nausea, vomiting. : Denies burning with urination. Derm: Skin is intact, is healthy with good turgor, Skin is dry, Skin is normal, Skin temperature is warm. Musculoskeletal: Circulation, motion, and sensation intact. Range of motion: intact in all extremities, Swelling absent. 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 - Social history:: Smoking status: Patient/guardian denies using tobacco. - Ebola Screening: : Patient negative for fever greater than or equal to 101.5 degrees Fahrenheit, and additional compatible Ebola Virus Disease symptoms Patient denies exposure to infectious person Patient denies travel to an Ebola-affected area in the 21 days before illness onset No symptoms or risks identified at this time. Screenin:26 Abuse screen: Denies threats or abuse. Denies injuries from another. Nutritional ed1 screening: No deficits noted. Tuberculosis screening: No symptoms or risk factors identified. Fall Risk None identified. Assessment: 05:26 General: See triage assessment. Neuro: Level of Consciousness is awake, alert, obeys ed1 commands, Oriented to person, place, time, situation, Calender Wind Up Tender are equal bilaterally Moves all extremities. Gait is steady, Speech is normal, Facial symmetry appears normal, Pupils are PERRLA, Intact Denies weakness blurred vision dizziness, difficulty swallowing, paresthesias numbness headache photophobia diplopia. 06:55 Reassessment: Patient appears in no apparent distress at this time. No changes from ed1 previously documented assessment. Patient and/or family updated on plan of care and expected duration. Pain level reassessed. Patient is alert, oriented x 3, equal unlabored respirations, skin warm/dry/pink. Patient states feeling better. Patient states symptoms have improved. 07:00 Reassessment: RECD REPORT FROM EMILY VELÁSQUEZ. 22YO BF P/W PELVIC AND BACK PAIN SINCE LAST bp PM. ALL CURRENT ORDERS COMPLETED, RESULTS PENDING FOR DISPO. 07:36 Reassessment: PT D/C HOME AMBULATORY, DX WITH OVARIAN CYST. bp Vital Signs: 05:23 BP 99 / 76; Pulse 71; Resp 16; Temp 98.2(O); Pulse Ox 100% on R/A; Weight 77.11 kg; ed1 Height 5 ft. 7 in. (170.18 cm); Pain 7/10; 06:57 BP 99 / 64; Pulse 58; Resp 18; Temp 98.2(O); Pulse Ox 99% on R/A; Pain 5/10; ed1 05:23 Body Mass Index 26.63 (77.11 kg, 170.18 cm) ed1 ED Course: 05:13 Patient arrived in ED. am2 05:21 Emily Zurita, RN is Primary Nurse. ed1 05:22 Triage completed. ed1 05:23 Arm band placed on Patient placed in an exam room, on a stretcher, on pulse oximetry. ed1 05:26 Awaiting ED provider evaluation. ed1 05:26 Patient has correct armband on for positive identification. Placed in gown. Bed in low ed1 position. Call light in reach. Side rails up X 1. Pulse ox on. NIBP on. Warm blanket given. 06:02 Initial lab(s) drawn, by ED staff, sent to lab. Inserted saline lock: 20 gauge in right ed1 antecubital area, using aseptic technique. 06:15 Thompson Lr PA is PHCP. cp 06:15 Red Pacheco MD is Attending Physician. cp 06:55 Ultrasound completed. Patient tolerated well. aa4 06:56 Transvaginal Study Probe In Process Unspecified. EDMS 07:02 Primary Nurse role handed off by Emily Zurita, CHRISTEN ed1 07:11 David Layne, CHRISTEN is Primary Nurse. bp 07:40 No provider procedures requiring assistance completed. IV discontinued, intact, bp bleeding controlled, No redness/swelling at site. Pressure dressing applied. Administered Medications: 06:24 Drug: Tylenol 1000 mg Route: PO; ed1 06:56 Follow up: Response: No adverse reaction; Pain is decreased ed1 06:24 Drug: Zofran 4 mg Route: IVP; Site: right antecubital; ed1 06:57 Follow up: Response: No adverse reaction; Nausea is decreased ed1 06:24 Drug: TORadol 30 mg Route: IVP; Site: right antecubital; ed1 06:57 Follow up: Response: No adverse reaction; Pain is decreased ed1 Outcome: 07:19 Discharge ordered by . cp 07:40 Discharged to home ambulatory. bp 07:40 Condition: stable 07:40 Discharge instructions given to patient, Instructed on discharge instructions, follow up and referral plans. medication usage, Demonstrated understanding of instructions, follow-up care, medications, Prescriptions given X 1. 07:41 Patient left the ED. bp Signatures: Dispatcher [employer] EDMS Kaia Ward aa4 Emily Zurita RN RN ed1 Thompson Lr PA PA cp Moreno, Amanda am2 David Layne, RN RN bp Corrections: (The following items were deleted from the chart) 06:57 06:55 Reassessment: Patient appears in no apparent distress at this time. No changes ed1 from previously documented assessment. Patient and/or family updated on plan of care and expected duration. Pain level reassessed. Patient is alert, oriented x 3, equal unlabored respirations, skin warm/dry/pink. Patient states symptoms have not improved. ed1
--- NOTE | 2018-07-19 07:20 | EDPHYS ---
Physician Documentation [facility] Name: Heather Paul Age: 22 yrs Sex: Female : 1995 Arrival Date: 07/19/2018 Time: 05:13 Bed 19 Private MD: ED Physician Red Pacheco HPI: 07/19 06:43 This 22 yrs old Black Female presents to ER via Ambulatory with complaints of Pelvic cp Pain, Back Pain. 06:43 The patient presents with pelvic pain. Onset: The symptoms/episode began/occurred this cp morning. 06:43 Associated signs and symptoms: Pertinent positives: cramping, low back pain, Pertinent cp negatives: constipation, diarrhea, dysuria, fever, hematuria, vaginal bleeding, vaginal discharge. 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 - Social history:: Smoking status: Patient/guardian denies using tobacco. - Ebola Screening: : Patient negative for fever greater than or equal to 101.5 degrees Fahrenheit, and additional compatible Ebola Virus Disease symptoms Patient denies exposure to infectious person Patient denies travel to an Ebola-affected area in the 21 days before illness onset No symptoms or risks identified at this time. ROS: 06:43 Eyes: Negative for injury, pain, redness, and discharge. cp 06:43 Constitutional: Negative for body aches, chills, fever, poor PO intake. 06:43 ENT: Negative for drainage from ear(s), ear pain, sore throat, difficulty swallowing, difficulty handling secretions. 06:43 Cardiovascular: Negative for chest pain. 06:43 Respiratory: Negative for cough, shortness of breath, wheezing. 06:43 Abdomen/GI: Positive for abdominal pain, of the lower abdomen, Negative for vomiting, diarrhea, constipation, black/tarry stool, rectal bleeding. 06:43 Back: Positive for pain at rest, of the low back area. 06:43 : Positive for pelvic pain, Negative for urinary symptoms, vaginal bleeding, vaginal discharge. 06:43 Skin: Negative for rash. 06:43 Neuro: Negative for altered mental status, headache, weakness. 06:43 All other systems are negative. Exam: 06:50 Constitutional: The patient appears in no acute distress, alert, awake, non-toxic, well cp developed, well nourished. 06:50 Head/Face: Normocephalic, atraumatic. cp 06:50 Eyes: Periorbital structures: appear normal, Conjunctiva: normal, no exudate, no injection, Lids and lashes: appear normal, bilaterally. 06:50 ENT: External ear(s): are unremarkable, Nose: is normal, Mouth: Lips: moist, Oral mucosa: moist, Posterior pharynx: is normal, airway is patent. 06:50 Chest/axilla: Inspection: normal, Palpation: is normal, no crepitus, no tenderness. 06:50 Cardiovascular: Rate: normal, Rhythm: regular. 06:50 Respiratory: the patient does not display signs of respiratory distress, Respirations: normal, no use of accessory muscles, no retractions, no splinting, no tachypnea, labored breathing, is not present, Breath sounds: are clear throughout, no decreased breath sounds, no stridor, no wheezing. 06:50 Abdomen/GI: Inspection: abdomen appears normal, Bowel sounds: active, all quadrants, Palpation: soft, in all quadrants, mild abdominal tenderness, in the right lower quadrant and left lower quadrant, rebound tenderness, is not appreciated, involuntary guarding, is not appreciated. 06:50 Back: pain, that is mild, of the low back area, ROM is normal. 06:50 Special observations: no evidence of discomfort. 07:17 : Pelvic Exam: the exam is deferred. cp Vital Signs: 05:23 BP 99 / 76; Pulse 71; Resp 16; Temp 98.2(O); Pulse Ox 100% on R/A; Weight 77.11 kg; ed1 Height 5 ft. 7 in. (170.18 cm); Pain 7/10; 06:57 BP 99 / 64; Pulse 58; Resp 18; Temp 98.2(O); Pulse Ox 99% on R/A; Pain 5/10; ed1 05:23 Body Mass Index 26.63 (77.11 kg, 170.18 cm) ed1 MDM: 05:52 Patient medically screened. ut 07:17 Data reviewed: vital signs, nurses notes, lab test result(s), radiologic studies, cp ultrasound, and as a result, I will discharge patient. ED course: US tech reports small hemorrhagic cyst right ovary. 07/19 05:50 Order name: Basic Metabolic Panel ut 07/19 05:50 Order name: CBC with Diff; Complete Time: 06:55 ut 07/19 06:55 Interpretation: Normal except: BASO% 1.4. 07/19 05:50 Order name: Urine Microscopic Only; Complete Time: 06:55 ut 07/19 06:55 Interpretation: Normal except: UBACT 20-50; SQEPI 10-20. 07/19 05:51 Order name: Basic Metabolic Panel; Complete Time: 06:55 [facility] 07/19 06:55 Interpretation: Normal except: CL 108. 07/19 06:18 Order name: Urine Dipstick--Ancillary (enter results) [facility] 07/19 06:18 Order name: Urine --Ancillary (enter results) [facility] 07/19 05:50 Order name: Urine Test (obtain specimen); Complete Time: 06:24 ut 07/19 05:50 Order name: IV Saline Lock; Complete Time: 06:24 ut 07/19 06:37 Order name: Transvaginal Study Probe [facility] 07/19 06:38 Order name: Urine Culture [facility] 07/19 05:50 Order name: Labs collected and sent; Complete Time: 06:24 ut 07/19 05:50 Order name: NPO; Complete Time: 05:53 ut 07/19 05:50 Order name: Urine Dipstick-Ancillary (obtain specimen); Complete Time: 06:24 ut Administered Medications: 06:24 Drug: Tylenol 1000 mg Route: PO; ed1 06:56 Follow up: Response: No adverse reaction; Pain is decreased ed1 06:24 Drug: Zofran 4 mg Route: IVP; Site: right antecubital; ed1 06:57 Follow up: Response: No adverse reaction; Nausea is decreased ed1 06:24 Drug: TORadol 30 mg Route: IVP; Site: right antecubital; ed1 06:57 Follow up: Response: No adverse reaction; Pain is decreased ed1 Disposition: 07:57 Co-signature as Attending Physician, Red Pacheco MD I agree with the assessment and wa plan of care. Disposition: 07/19/18 07:19 Discharged to Home. Impression: Other and unspecified ovarian cysts - right. - Condition is Stable. - Discharge Instructions: Ovarian Cyst. - Prescriptions for Naprosyn 500 mg Oral Tablet - take 1 tablet by ORAL route 2 times per day take with food; 20 tablet. - Medication Reconciliation Form, Thank You Letter, Antibiotic Education, Prescription Opioid Use form. - Follow up: Private Physician; When: 1 week; Reason: Recheck today's complaints. - Problem is new. - Symptoms have improved. Signatures: Dispatcher [employer] EDMS Emily Zurita RN RN ed1 Thompson Lr PA PA cp Appiah, William, MD MD ut David Layne, RN RN bp Corrections: (The following items were deleted from the chart) 06:37 05:52 Pelvis Complete+US.RAD.BRZ ordered. EDVT EDMS 07:41 07:19 07/19/2018 07:19 Discharged to Home. Impression: Other and unspecified ovarian bp cysts - right. Condition is Stable. Forms are Medication Reconciliation Form, Thank You Letter, Antibiotic Education, Prescription Opioid Use. Follow up: Private Physician; When: 1 week; Reason: Recheck today's complaints. Problem is new. Symptoms have improved. cp
--- NOTE | 2018-07-19 08:45 | RAD REPORT ---
EXAM DESCRIPTION: US - Transvaginal Study Probe - 07/19/2018 6:56 am CLINICAL HISTORY: Pelvic pain COMPARISON: 2017 FINDINGS: The uterus measures 8 x 5 x 6cm. A fibroid is not seen. Endometrial stripe measures 15 mil limeters The ovaries are normal in size and echotexture. An adnexal mass is not noted. A 2 centimeter hemorrhagic right ovarian cyst No significant free fluid is seen. IMPRESSION: A 2 centimeter hemorrhagic right ovarian cyst
[2018-07-19 08:55] LABS: Urine Blood TRACE (NEG); Urine Glucose NEGATIVE (NEG); Urine Protein TRACE (NEG); Urine Specific Gravity 1.025 (1.005-1.030); Urine pH 6.5 (5.0-7.0)
[2018-07-19 11:55] VITALS: TEMP 98.2
[2018-07-19 11:57] VITALS: BP 99/64; O2SAT 99
== END 2018-07-19 07:41 | disposition home or self-care (01) ==
LOC: ER 05:12
DX: N83.201 Unspecified ovarian cyst, right side (principal)
CPT/HCPCS: 36415; 76830; 80048; 81003; 81015; 81025; 85025; 87086; 87088; 96374; 96375; 99284; J2405

== ENCOUNTER 2018-08-26 08:38 | Emergency (ER) | payer OTHER ==
--- OUTSIDE RECORDS SUMMARY | 2018-08-26 08:41 | XMS REPORT ---
:1995 [facility] Address [address] [place] [address] Dr. Prado [address] [place] [id number] Care Team Providers Name Role Phone Unavailable Unavailable Unavailable Problems This patient has no known problems. Allergies, Adverse Reactions, Alerts This patient has no known allergies or adverse reactions. Medications This patient has no known medications.
[2018-08-26] MEDS ORDERED: ONDANSETRON 4 MG (ODT) TAB ONE (09:03)
[2018-08-26] MEDS ORDERED: FENTANYL CITR 100 MCG/2 ML ONE (09:03)
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
--- NOTE | 2018-08-26 09:40 | EDPHYS ---
Physician Documentation [facility] Name: Heather Paul Age: 23 yrs Sex: Female : 1995 Arrival Date: 08/26/2018 Time: 08:40 Bed 20 Private MD: ED Physician Thompson Rudd HPI: 08/26 09:20 This 23 yrs old Black Female presents to ER via EMS with complaints of Arm Injury. jr8 09:20 The patient or guardian complains of decreased range of motion, pain, tenderness. The jr8 complaints affect the anterior aspect of left shoulder and left bicep. Context: The problem was sustained at home, resulted from a fall. Onset: The symptoms/episode began/occurred acutely, today. Treatment prior to arrival includes: sling. Modifying factors: The symptoms are alleviated by nothing. the symptoms are aggravated by movement. Associated signs and symptoms: The patient has no apparent associated signs or symptoms. Severity of symptoms: At their worst the symptoms were moderate, in the emergency department the symptoms are unchanged. The patient has not experienced similar symptoms in the past. The patient has not recently seen a physician. Patient stated that her sandal broke causing her to fall onto left shoulder. Denies hitting head or neck . 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 - Social history:: Smoking status: Patient/guardian denies using tobacco. - Ebola Screening: : Patient negative for fever greater than or equal to 101.5 degrees Fahrenheit, and additional compatible Ebola Virus Disease symptoms Patient denies exposure to infectious person Patient denies travel to an Ebola-affected area in the 21 days before illness onset No symptoms or risks identified at this time. ROS: 09:20 Eyes: Negative for injury, pain, redness, and discharge, ENT: Negative for injury, jr8 pain, and discharge, Neck: Negative for injury, pain, and swelling, Cardiovascular: Negative for chest pain, palpitations, and edema, Respiratory: Negative for shortness of breath, cough, wheezing, and pleuritic chest pain, Abdomen/GI: Negative for abdominal pain, nausea, vomiting, diarrhea, and constipation, Back: Negative for injury and pain, Skin: Negative for injury, rash, and discoloration, Neuro: Negative for headache, weakness, numbness, tingling, and seizure. 09:20 MS/extremity: Positive for decreased range of motion, pain, tenderness, of the left shoulder. Exam: 09:20 Eyes: Pupils equal round and reactive to light, extra-ocular motions intact. Lids and jr8 lashes normal. Conjunctiva and sclera are non-icteric and not injected. Cornea within normal limits. Periorbital areas with no swelling, redness, or edema. ENT: Nares patent. No nasal discharge, no septal abnormalities noted. Tympanic membranes are normal and external auditory canals are clear. Oropharynx with no redness, swelling, or masses, exudates, or evidence of obstruction, uvula midline. Mucous membranes moist. Neck: Trachea midline, no thyromegaly or masses palpated, and no cervical lymphadenopathy. Supple, full range of motion without nuchal rigidity, or vertebral point tenderness. No Meningismus. Cardiovascular: Regular rate and rhythm with a normal S1 and S2. No gallops, murmurs, or rubs. Normal PMI, no JVD. No pulse deficits. Respiratory: Lungs have equal breath sounds bilaterally, clear to auscultation and percussion. No rales, rhonchi or wheezes noted. No increased work of breathing, no retractions or nasal flaring. Abdomen/GI: Soft, non-tender, with normal bowel sounds. No distension or tympany. No guarding or rebound. No evidence of tenderness throughout. Back: No spinal tenderness. No costovertebral tenderness. Full range of motion. Skin: Warm, dry with normal turgor. Normal color with no rashes, no lesions, and no evidence of cellulitis. Neuro: Awake and alert, GCS 15, oriented to person, place, time, and situation. Cranial nerves II-XII grossly intact. Motor strength 5/5 in all extremities. Sensory grossly intact. Cerebellar exam normal. Normal gait. 09:20 Musculoskeletal/extremity: Extremities: grossly normal except: noted in the left shoulder: decreased ROM, pain, tenderness, ROM: Pain with active and passive ROM. Limited motion due to pain, Circulation is intact in all extremities. Pulses: noted to be 2+ in the right radial artery and left radial artery, Sensation intact. No obvious deformity . Vital Signs: 08:44 BP 117 / 86; Pulse 107; Resp 22; Pulse Ox 100% on R/A; Weight 77.11 kg; Height 5 ft. 7 em in. (170.18 cm); Pain 10/10; 09:48 BP 102 / 55; Pulse 79; Resp 18; Pulse Ox 99% on R/A; em 08:44 Body Mass Index 26.63 (77.11 kg, 170.18 cm) em Procedures: 09:36 Splinting: Splint applied to left shoulder using sling, applied by nurse. Examined by jr8 me, post splint application: neurovascular intact, 2+ distal pulses palpable, brisk capillary refill noted, Patient tolerated well. MDM: 08:40 Patient medically screened. jr8 09:36 Data reviewed: vital signs, nurses notes, radiologic studies, plain films. Data jr8 interpreted: Pulse oximetry: on room air is 100 %. Interpretation: normal. Counseling: I had a detailed discussion with the patient and/or guardian regarding: the historical points, exam findings, and any diagnostic results supporting the discharge/admit diagnosis, radiology results, the need for outpatient follow up, a orthopedic surgeon, to return to the emergency department if symptoms worsen or persist or if there are any questions or concerns that arise at home. ED course: Discussed with patient no radiographic evidence of acute fracture. Due to amount of pain would be good idea to f/u with orthopedics soon for possibility of rotator cuff injury . 08/26 08:40 Order name: XRAY Shoulder LEFT 2 view; Complete Time: 09:46 jr8 08/26 08:43 Order name: Humerus Left; Complete Time: 09:46 EDMS 08/26 09:35 Order name: Sling; Complete Time: 09:55 jr8 Administered Medications: 08:52 Not Given (Other Intervention Used): fentaNYL (PF) 50 mcg IVP once em 08:52 Not Given (Other Intervention Used): Zofran 4 mg IVP once; over 2 minutes em 08:52 Drug: fentaNYL (PF) 50 mcg Route: IM; Site: right deltoid; em 09:55 Follow up: Response: No adverse reaction; Pain is decreased em 08:52 Drug: Zofran 4 mg Route: PO; em 09:55 Follow up: Response: No adverse reaction em Disposition: 08/27 09:47 Co-signature as Attending Physician, Thompson Rudd MD I agree with the assessment and zak plan of care. Disposition: 08/26/18 09:38 Discharged to Home. Impression: Pain in left shoulder. - Condition is Stable. - Discharge Instructions: Rotator Cuff Injury, Shoulder Pain. - Prescriptions for Ibuprofen 800 mg Oral Tablet - take 1 tablet by ORAL route every 12 hours As needed take with food; 20 tablet. Tramadol 50 mg Oral Tablet - take 1 tablet by ORAL route every 8 hours as needed; 12 tablet. - Medication Reconciliation Form, Thank You Letter, Antibiotic Education, Prescription Opioid Use form. - Follow up: Stan Figueroa MD; When: 2 - 3 days; Reason: Recheck today's complaints, Continuance of care, Re-evaluation by your physician. - Problem is new. - Symptoms have improved. Signatures: Dispatcher [employer] [facility] Thompson Rudd MD MD cha Munoz, Edgar, MANAGER GARAGE MANAGER GARAGE em Nicanor Garber, PA PA jr8 Corrections: (The following items were deleted from the chart) 08/26 08:43 08:41 Humerus Left W Compar+RAD.RAD.BRZ ordered. [facility] 09:57 09:38 08/26/2018 09:38 Discharged to Home. Impression: Pain in left shoulder. Condition em is Stable. Forms are Medication Reconciliation Form, Thank You Letter, Antibiotic Education, Prescription Opioid Use. Follow up: Stan Figueroa; When: 2 - 3 days; Reason: Recheck today's complaints, Continuance of care, Re-evaluation by your physician. Problem is new. Symptoms have improved. jr8
--- NOTE | 2018-08-26 09:45 | RAD REPORT ---
EXAM DESCRIPTION: RAD - Shoulder Left 2 View - 08/26/2018 9:07 am CLINICAL HISTORY: Fall, left shoulder pain COMPARISON: None. TECHNIQUE: Internal and external rotation views of the left shoulder were obtained. FINDINGS: There is no fracture or dislocation. AC joint is normal in appearance. No acute or suspici ous findings. IMPRESSION: Negative two-view left shoulder examination.
--- NOTE | 2018-08-26 09:45 | RAD REPORT ---
EXAM DESCRIPTION: RAD - Humerus Left - 08/26/2018 9:07 am CLINICAL HISTORY: Fall, left arm pain COMPARISON: None. FINDINGS: No fracture is identified. There is no dislocation or periosteal reaction noted. No forei gn body or other soft tissue abnormality. IMPRESSION: Negative left humerus examination.
[2018-08-26 10:21] VITALS: BP 102/55; O2SAT 99
== END 2018-08-26 09:57 | disposition home or self-care (01) ==
LOC: ER 08:38
DX: M25.512 Pain in left shoulder (principal)
CPT/HCPCS: 96372; 99284; J3010

== ENCOUNTER 2018-12-23 14:56 | Emergency (ER) | payer OTHER ==
[2018-12-23] MEDS ORDERED: ACETAMINOPHEN 500 MG TAB ONE (15:34)
--- NOTE | 2018-12-23 15:58 | RAD REPORT ---
EXAM DESCRIPTION: RAD - Foot Right 3 View - 12/23/2018 3:50 pm CLINICAL HISTORY: Right foot pain status post injury FINDINGS: No fracture or dislocation is seen
--- NOTE | 2018-12-23 16:16 | ER ---
Nurse's Notes [facility] Name: Heather Paul Age: 23 yrs Sex: Female : 1995 Arrival Date: 12/23/2018 Time: 14:59 Bed 30 Private MD: Diagnosis: Pain in right ankle and joints of right foot Presentation: 12/23 15:02 Presenting complaint: Right foot pain after kicking concrete step yesterday. Ambulated hb to triage with steady gait. Transition of care: patient was not received from another setting of care. Onset of symptoms was December 22, 2018. Risk Assessment: Do you want to hurt yourself or someone else? Patient reports no desire to harm self or others. Initial Sepsis Screen: Does the patient meet any 2 criteria? No. Patient's initial sepsis screen is negative. Does the patient have a suspected source of infection? No. Patient's initial sepsis screen is negative. Care prior to arrival: Medication(s) given: Motrin, at 1000. 15:02 Method Of Arrival: Ambulatory hb 15:02 Acuity: ALISA 4 hb Historical: - Allergies: 15:03 NKA; hb - PMHx: 15:03 Asthma; hb - PSHx: 15:03 None; hb - Immunization history:: Adult Immunizations up to date. - Social history:: Smoking status: Patient/guardian denies using tobacco. - Ebola Screening: : No symptoms or risks identified at this time. Screenin:46 Abuse screen: Denies threats or abuse. Nutritional screening: No deficits noted. tr5 Tuberculosis screening: No symptoms or risk factors identified. Fall Risk None identified. Assessment: 15:46 General: Appears in no apparent distress. Behavior is calm, cooperative, appropriate tr5 for age. Pain: Complains of pain in right foot Pain does not radiate. Neuro: Level of Consciousness is awake, alert, obeys commands, Oriented to person, place, time, Nutrition Aide are equal bilaterally. Cardiovascular: Heart tones present. Respiratory: Airway is patent Respiratory effort is even, unlabored, Respiratory pattern is regular, symmetrical. GI: No signs and/or symptoms were reported involving the gastrointestinal system. : No signs and/or symptoms were reported regarding the genitourinary system. EENT: No signs and/or symptoms were reported regarding the EENT system. Derm: No signs and/or symptoms reported regarding the dermatologic system. Musculoskeletal: Capillary refill < 3 seconds, Range of motion: limited in right ankle. 16:54 Reassessment: Patient appears in no apparent distress at this time. Patient and/or tr5 family updated on plan of care and expected duration. Pain level reassessed. Patient is alert, oriented x 3, equal unlabored respirations, skin warm/dry/pink. Vital Signs: 15:03 BP 122 / 68; Pulse 66; Resp 16; Temp 98.3; Pulse Ox 100% on R/A; Weight 76.2 kg; Height hb 5 ft. 7 in. (170.18 cm); Pain 8/10; 15:03 Body Mass Index 26.31 (76.20 kg, 170.18 cm) hb ED Course: 14:59 Patient arrived in ED. as 15:02 Triage completed. hb 15:03 Arm band placed on. hb 15:04 Thompson Lr PA is PHCP. cp 15:04 Demetrio Hsu MD is Attending Physician. cp 15:08 Roc Trevino, CHRISTEN is Primary Nurse. tr5 15:46 Bed in low position. Call light in reach. Side rails up X 1. tr5 15:48 XRAY Foot RIGHT 3 View In Process Unspecified. EDMS 16:14 Mark Zhang MD is Referral Physician. cp 16:55 No provider procedures requiring assistance completed. Patient did not have IV access tr5 during this emergency room visit. Administered Medications: 15:36 Drug: Tylenol 1000 mg Route: PO; tr5 16:20 Follow up: Response: Pain is decreased tr5 Outcome: 16:15 Discharge ordered by MD. cp 16:55 Discharged to home ambulatory. tr5 16:55 Condition: stable 16:55 Discharge instructions given to patient, Instructed on discharge instructions, follow up and referral plans. medication usage, Demonstrated understanding of instructions, follow-up care, medications, Prescriptions given X 1. 16:59 Patient left the ED. tr5 Signatures: Dispatcher [employer] EDMS Darline Meeks as Thompson Lr PA PA cp Marge Romano RN RN hb Roc Trevino RN RN tr5 Corrections: (The following items were deleted from the chart) 15:03 15:02 Care prior to arrival: None. hb hb
--- NOTE | 2018-12-23 16:16 | EDPHYS ---
Physician Documentation [facility] Name: Heather Paul Age: 23 yrs Sex: Female : 1995 Arrival Date: 12/23/2018 Time: 14:59 Bed 30 Private MD: ED Physician Demetrio Hsu HPI: 12/23 15:32 This 23 yrs old Black Female presents to ER via Ambulatory with complaints of Foot cp Injury. 15:32 The patient presents with pain, that is acute, swelling, tenderness. The complaints cp affect the lateral aspect of right foot and dorsum of right foot. Context: resulted from a direct blow, struck foot against concrete step, the patient can partially bear weight, the patient is able to ambulate, with moderate difficulty. Onset: The symptoms/episode began/occurred yesterday. Associated signs and symptoms: Pertinent positives: numbness, Pertinent negatives calf tenderness, rash, weakness. Treatment prior to arrival includes: over the counter medications, NSAIDS. Historical: - Allergies: 15:03 NKA; hb - PMHx: 15:03 Asthma; hb - PSHx: 15:03 None; hb - Immunization history:: Adult Immunizations up to date. - Social history:: Smoking status: Patient/guardian denies using tobacco. - Ebola Screening: : No symptoms or risks identified at this time. ROS: 15:33 Constitutional: Negative for body aches, chills, fever. cp 15:33 MS/extremity: Positive for pain, paresthesias, swelling, tenderness, of the right foot, Negative for decreased range of motion, deformity. 15:33 Skin: Negative for rash. 15:33 All other systems are negative. Exam: 15:40 Constitutional: The patient appears in no acute distress, alert, awake, non-toxic, well cp developed, well nourished. 15:40 Head/Face: Normocephalic, atraumatic. cp 15:40 Eyes: Periorbital structures: appear normal, Conjunctiva: normal, no exudate, no injection, Lids and lashes: appear normal, bilaterally. 15:40 ENT: External ear(s): are unremarkable, Nose: is normal, Mouth: Lips: moist, Oral mucosa: moist, Posterior pharynx: Airway: no evidence of obstruction, patent. 15:40 Chest/axilla: Inspection: normal. 15:40 Cardiovascular: Rate: normal. 15:40 Respiratory: the patient does not display signs of respiratory distress, Respirations: normal. 15:40 Abdomen/GI: Inspection: abdomen appears normal. 15:40 Musculoskeletal/extremity: Extremities: grossly normal except: noted in the dorsum of right foot and lateral aspect of right foot: pain, swelling, tenderness, There is no evidence of deformity, Perfusion: the extremity is normally perfused throughout, Sensation intact. 15:40 Skin: cellulitis, is not appreciated, injury, is not appreciated, no rash present. Vital Signs: 15:03 BP 122 / 68; Pulse 66; Resp 16; Temp 98.3; Pulse Ox 100% on R/A; Weight 76.2 kg; Height hb 5 ft. 7 in. (170.18 cm); Pain 8/10; 15:03 Body Mass Index 26.31 (76.20 kg, 170.18 cm) hb MDM: 15:08 Patient medically screened. cp 15:45 Differential diagnosis: dislocation, closed fracture, contusion, sprain. cp 16:15 Data reviewed: vital signs, nurses notes, radiologic studies, plain films. cp 16:15 Test interpretation: by ED physician or midlevel provider: plain radiologic studies, cp xrays of right foot negative for fracture. Counseling: I had a detailed discussion with the patient and/or guardian regarding: the historical points, exam findings, and any diagnostic results supporting the discharge/admit diagnosis, radiology results, to return to the emergency department if symptoms worsen or persist or if there are any questions or concerns that arise at home. Response to treatment: the patient's symptoms have mildly improved after treatment, and as a result, I will discharge patient. ED course: VSS. Patient given post op shoe and crutches for comfort. Will discharge to home for continued monitoring. 12/23 15:31 Order name: XRAY Foot RIGHT 3 View; Complete Time: 16:34 cp 12/23 16:34 Interpretation: Report reviewed. cp 12/23 16:15 Order name: Crutches cp 12/23 16:15 Order name: Walking boot cp Administered Medications: 15:36 Drug: Tylenol 1000 mg Route: PO; tr5 16:20 Follow up: Response: Pain is decreased tr5 Disposition: 17:15 Chart complete. cp Disposition: 12/23/18 16:15 Discharged to Home. Impression: Pain in right ankle and joints of right foot. - Condition is Stable. - Discharge Instructions: Elastic Bandage and RICE, Foot Pain. - Prescriptions for Ibuprofen 800 mg Oral Tablet - take 1 tablet by ORAL route every 8 hours As needed take with food; 30 tablet. - Medication Reconciliation Form, Thank You Letter, Antibiotic Education, Prescription Opioid Use form. - Follow up: Mark Zhang MD; When: 1 week; Reason: Worsening of condition. - Problem is new. - Symptoms have improved. Signatures: Dispatcher [employer] EDMS Thompson Lr PA PA cp Baxter, Heather, RN RN hb Roc Trevino RN RN tr5 Corrections: (The following items were deleted from the chart) 16:59 16:15 12/23/2018 16:15 Discharged to Home. Impression: Pain in right ankle and joints tr5 of right foot. Condition is Stable. Forms are Medication Reconciliation Form, Thank You Letter, Antibiotic Education, Prescription Opioid Use. Follow up: Mark Zhang; When: 1 week; Reason: Worsening of condition. Problem is new. Symptoms have improved. cp
[2018-12-23 17:04] VITALS: BP 122/68; TEMP 98.3; O2SAT 100
== END 2018-12-23 16:59 | disposition home or self-care (01) ==
LOC: ER 14:56
DX: M25.571 Pain in right ankle and joints of right foot (principal)
CPT/HCPCS: 99283

== ENCOUNTER 2019-05-21 04:09 | Emergency (ER) | payer OTHER ==
--- OUTSIDE RECORDS SUMMARY | 2019-05-21 04:12 | XMS REPORT ---
:1995 [facility] Address [address] [place] [address] Dr. Prado [address] [place] [id number] Care Team Providers Name Role Phone Unavailable Unavailable Unavailable Problems This patient has no known problems. Allergies, Adverse Reactions, Alerts This patient has no known allergies or adverse reactions. Medications This patient has no known medications.
--- NOTE | 2019-05-21 05:03 | ER ---
Nurse's Notes [facility] Name: Heather Paul Age: 23 yrs Sex: Female : 1995 Arrival Date: 05/21/2019 Time: 04:11 Bed 2 Private MD: Diagnosis: Cough Presentation: 05/20 04:28 Chief complaint: Patient states: Cough x1 week; States cough with some sputum; Denies lp1 any fever; denies fever; States using albuterol inhaler and nebs at home. Coronavirus screen: The patient has NOT traveled to a country currently being monitored by the [facility] within the last 14 days. The patient has NOT had contact with any known and/or suspected case of coronavirus. Ebola Screen: No symptoms or risks identified at this time. Initial Sepsis Screen: Does the patient meet any 2 criteria? No. Patient's initial sepsis screen is negative. Does the patient have a suspected source of infection? No. Patient's initial sepsis screen is negative. Risk Assessment: Do you want to hurt yourself or someone else? Patient reports no desire to harm self or others. Onset of symptoms was May 21, 2019. 04:28 Method Of Arrival: Ambulatory lp1 04:28 Acuity: ALISA 4 lp1 BIN FILLER: 04:31 LMP N/A - Depo-provera lp1 Historical: - Allergies: 04:30 NKA; lp1 - Home Meds: 04:30 Albuterol Inhl [Active]; Albuterol Nebulizer [Active]; lp1 - PMHx: 04:30 Asthma; lp1 - PSHx: 04:30 None; lp1 - Immunization history:: Adult Immunizations up to date. - Social history:: Smoking status: Patient denies any tobacco usage or history of. Screenin:29 Abuse screen: Denies threats or abuse. Nutritional screening: No deficits noted. ah Tuberculosis screening: No symptoms or risk factors identified. Fall Risk None identified. Assessment: 04:26 General: Appears in no apparent distress. Behavior is calm. General: Pt states that she ah has been having to do neb treatments at home and during the night for the last 3 nights. She does not feel that she is getting any relief. Pain: Denies pain. Neuro: Level of Consciousness is awake, alert, Oriented to person, place, time, situation. Cardiovascular: Heart tones S1 S2 present Capillary refill < 3 seconds Patient's skin is warm and dry. Respiratory: Reports cough that is productive, since x3 days Airway is patent Respiratory effort is even, unlabored, Respiratory pattern is regular, symmetrical, Sputum is green Breath sounds are coarse bilaterally. GI: No signs and/or symptoms were reported involving the gastrointestinal system. : No signs and/or symptoms were reported regarding the genitourinary system. EENT: No signs and/or symptoms were reported regarding the EENT system. Derm: No signs and/or symptoms reported regarding the dermatologic system. Vital Signs: 04:28 BP 120 / 90; Pulse 77; Resp 18; Temp 98.7(O); Pulse Ox 100% on R/A; Weight 79.38 kg lp1 (R); Height 5 ft. 7 in. (170.18 cm); Pain 0/10; 04:28 Body Mass Index 27.41 (79.38 kg, 170.18 cm) lp1 ED Course: 04:11 Patient arrived in ED. cl3 04:20 Mj Van MD is Attending Physician. tw4 04:25 Arcelia Valdez, RN is Primary Nurse. 04:29 Triage completed. lp1 04:29 Arm band placed on. lp1 04:31 Patient has correct armband on for positive identification. lp1 Administered Medications: No medications were administered Outcome: 05:02 Discharge ordered by . tw4 05:07 Patient left the ED. mw2 Signatures: Gaby Lyons RN RN 1 Mj Van MD MD 4 Sanket Coronado 2 Bernardo Muller cl3 Arcelia Valdez, RN RN
--- NOTE | 2019-05-21 05:08 | EDPHYS ---
Physician Documentation [facility] Name: Heather Paul Age: 23 yrs Sex: Female : 1995 Arrival Date: 05/21/2019 Time: 04:11 Bed 2 Private MD: ED Physician Mj Van HPI: 05/20 06:33 This 23 yrs old Black Female presents to ER via Ambulatory with complaints of Cough, tw4 Asthma Exacerbation. 06:33 The patient or guardian reports cough. Onset: The symptoms/episode began/occurred tw4 today. Severity of symptoms: At their worst the symptoms were moderate. Modifying factors: The symptoms are alleviated by nothing, the symptoms are aggravated by. The patient has not experienced similar symptoms in the past. [employer] SAL[employer] REPRESENTATIVE: 04:31 LMP N/A - Depo-provera lp1 Historical: - Allergies: 04:30 NKA; lp1 - Home Meds: 04:30 Albuterol Inhl [Active]; Albuterol Nebulizer [Active]; lp1 - PMHx: 04:30 Asthma; lp1 - PSHx: 04:30 None; lp1 - Immunization history:: Adult Immunizations up to date. - Social history:: Smoking status: Patient denies any tobacco usage or history of. ROS: 06:33 Constitutional: Negative for fever, chills, and weight loss, Eyes: Negative for injury, tw4 pain, redness, and discharge, Cardiovascular: Negative for chest pain, palpitations, and edema, Abdomen/GI: Negative for abdominal pain, nausea, vomiting, diarrhea, and constipation, Back: Negative for injury and pain, MS/Extremity: Negative for injury and deformity, Skin: Negative for injury, rash, and discoloration, Neuro: Negative for headache, weakness, numbness, tingling, and seizure. 06:33 Respiratory: Positive for cough, shortness of breath, wheezing, Negative for dyspnea on exertion, hemoptysis, orthopnea, pleurisy. Exam: 06:33 Constitutional: This is a well developed, well nourished patient who is awake, alert, tw4 and in no acute distress. Head/Face: Normocephalic, atraumatic. Chest/axilla: Normal chest wall appearance and motion. Nontender with no deformity. No lesions are appreciated. Cardiovascular: Regular rate and rhythm with a normal S1 and S2. No gallops, murmurs, or rubs. Normal PMI, no JVD. No pulse deficits. Respiratory: Lungs have equal breath sounds bilaterally, clear to auscultation and percussion. No rales, rhonchi or wheezes noted. No increased work of breathing, no retractions or nasal flaring. Abdomen/GI: Soft, non-tender, with normal bowel sounds. No distension or tympany. No guarding or rebound. No evidence of tenderness throughout. Skin: Warm, dry with normal turgor. Normal color with no rashes, no lesions, and no evidence of cellulitis. MS/ Extremity: Pulses equal, no cyanosis. Neurovascular intact. Full, normal range of motion. Neuro: Awake and alert, GCS 15, oriented to person, place, time, and situation. Cranial nerves II-XII grossly intact. Motor strength 5/5 in all extremities. Sensory grossly intact. Cerebellar exam normal. Normal gait. Vital Signs: 04:28 BP 120 / 90; Pulse 77; Resp 18; Temp 98.7(O); Pulse Ox 100% on R/A; Weight 79.38 kg lp1 (R); Height 5 ft. 7 in. (170.18 cm); Pain 0/10; 04:28 Body Mass Index 27.41 (79.38 kg, 170.18 cm) lp1 MDM: 04:20 Patient medically screened. tw4 05:03 Medical screen evaluation completed. [facility] emergency medical condition absent. tw4 06:33 Differential Diagnosis: Obstructed Airway Bronchitis Influenza Upper Respiratory tw4 Infection. Data reviewed: vital signs, nurses notes. Data interpreted: Pulse oximetry: Interpretation: normal. Counseling: I had a detailed discussion with the patient and/or guardian regarding: the historical points, exam findings, and any diagnostic results supporting the discharge/admit diagnosis. Special discussion: I discussed with the patient/guardian in detail that at this point there is no indication for admission to the hospital. It is understood, however, that if the symptoms persist or worsen the patient needs to return immediately for re-evaluation. Administered Medications: No medications were administered Disposition: 06:43 Chart complete. tw4 Disposition: 05/21/19 05:02 Discharged to Home. Impression: Cough. - Condition is Stable. - Discharge Instructions: Cough, Adult. - Medication Reconciliation Form, Thank You Letter, Antibiotic Education, Prescription Opioid Use form. Signatures: Gaby Lyons RN RN lp1 Mj Van MD MD tw4 Sanket Coronado mw2 Corrections: (The following items were deleted from the chart) 05:07 05:02 05/21/2019 05:02 Discharged to Home. Impression: Cough. Condition is Stable. mw2 Forms are Medication Reconciliation Form, Thank You Letter, Antibiotic Education, Prescription Opioid Use. tw4
[2019-05-21 05:18] VITALS: BP 120/90; TEMP 98.7; O2SAT 100
== END 2019-05-21 05:07 | disposition home or self-care (01) ==
LOC: ER 04:09
DX: R05 Cough (principal); J45.909 Unspecified asthma, uncomplicated
CPT/HCPCS: 99281

== ENCOUNTER 2020-03-14 03:34 | Emergency (ER) | payer OTHER ==
--- OUTSIDE RECORDS SUMMARY | 2020-03-14 03:36 | XMS REPORT | Continuity of Care Document ---
:1995 Author Organization [facility] Address [address] [place] [address] Care Team Providers Name Role Phone Eric Silveira MD Attending Clinician Problems This patient has no known problems. Allergies, Adverse Reactions, Alerts This patient has no known allergies or adverse reactions. Medications This patient has no known medications. Procedures This patient has no known procedures. Encounters Start End Encounter Admission Attending Care Care Encounter Source Date/Time Date/Time Type Type Clinicians Facility Department ID 2019-05-21 2019-05-21 Emergency [facility] [id number] 05:29:16 07:07:00 Maggie Helton [id number] [place] [id number] [place] [id number] Results This patient has no known results.
[2020-03-14] MEDS ORDERED: predniSONE 20 MG TAB ONE (04:10)
[2020-03-14 06:13] LABS: SARS-COV-2 RT PCR NEGATIVE (NEGATIVE)
--- NOTE | 2020-03-14 06:23 | EDPHYS ---
Physician Documentation [facility] Name: Heather Paul Age: 24 yrs Sex: Female : 1995 Arrival Date: 03/14/2020 Time: 03:36 Bed 7 Private MD: ED Physician Mathieu Miramontes HPI: 03/14 04:09 This 24 yrs old Black Female presents to ER via Ambulatory with complaints of Asthma mh7 Exacerbation, Breathing Difficulty. 04:09 The patient presents to the emergency department with wheezing, Current therapy: mh7 albuterol nebs, that began without any particular precipitating event, the patient was reported to have audible wheezing, productive cough, Pre-hospital care: med neb, albuterol. Onset: The symptoms/episode began/occurred 2 day(s) ago. Modifying factors: The symptoms are alleviated by nothing, the symptoms are aggravated by cold weather. Associated signs and symptoms: Pertinent negatives: chest pain, choking, fever, headache, nausea, palpitations, rash, vomiting. Severity of symptoms: At their worst the symptoms were moderate last night, in the emergency department the symptoms have improved moderately. The patient has experienced similar episodes in the past, several times. CARE ASST: 03:52 LMP 02/17/2020 lp1 Historical: - Allergies: 03:52 NKA; lp1 - Home Meds: 03:52 Albuterol Inhl [Active]; Albuterol Inhl [Active]; Claritin Oral [Active]; Zyrtec Oral lp1 [Active]; - PMHx: 03:52 Asthma; lp1 - PSHx: 03:52 None; lp1 - Immunization history:: Adult Immunizations up to date, Flu vaccine is up to date. - Social history:: Smoking status: Patient denies any tobacco usage or history of. ROS: 04:09 Constitutional: Negative for fever, chills, and weight loss, Eyes: Negative for injury, mh7 pain, redness, and discharge, ENT: Negative for injury, pain, and discharge, Neck: Negative for injury, pain, and swelling, Cardiovascular: Negative for chest pain, palpitations, and edema, Abdomen/GI: Negative for abdominal pain, nausea, vomiting, diarrhea, and constipation, Back: Negative for injury and pain, : Negative for injury, bleeding, discharge, and swelling, MS/Extremity: Negative for injury and deformity, Skin: Negative for injury, rash, and discoloration, Neuro: Negative for headache, weakness, numbness, tingling, and seizure, Psych: Negative for depression, anxiety, suicide ideation, homicidal ideation, and hallucinations, Allergy/Immunology: Negative for hives, rash, and allergies, Endocrine: Negative for neck swelling, polydipsia, polyuria, polyphagia, and marked weight changes, Hematologic/Lymphatic: Negative for swollen nodes, abnormal bleeding, and unusual bruising. Exam: 04:09 Constitutional: This is a well developed, well nourished patient who is awake, alert, mh7 and in no acute distress. Head/Face: Normocephalic, atraumatic. Eyes: Pupils equal round and reactive to light, extra-ocular motions intact. Lids and lashes normal. Conjunctiva and sclera are non-icteric and not injected. Cornea within normal limits. Periorbital areas with no swelling, redness, or edema. Neck: Trachea midline, no thyromegaly or masses palpated, and no cervical lymphadenopathy. Supple, full range of motion without nuchal rigidity, or vertebral point tenderness. No Meningismus. Chest/axilla: Normal chest wall appearance and motion. Nontender with no deformity. No lesions are appreciated. Cardiovascular: Regular rate and rhythm with a normal S1 and S2. No gallops, murmurs, or rubs. Normal PMI, no JVD. No pulse deficits. 04:09 Abdomen/GI: Soft, non-tender, with normal bowel sounds. No distension or tympany. No guarding or rebound. No evidence of tenderness throughout. Back: No spinal tenderness. No costovertebral tenderness. Full range of motion. Skin: Warm, dry with normal turgor. Normal color with no rashes, no lesions, and no evidence of cellulitis. MS/ Extremity: Pulses equal, no cyanosis. Neurovascular intact. Full, normal range of motion. Neuro: Awake and alert, GCS 15, oriented to person, place, time, and situation. Cranial nerves II-XII grossly intact. Motor strength 5/5 in all extremities. Sensory grossly intact. Cerebellar exam normal. Normal gait. Psych: Awake, alert, with orientation to person, place and time. Behavior, mood, and affect are within normal limits. 04:09 Respiratory: the patient does not display signs of respiratory distress, Respirations: prolonged exhalation, that is mild, Breath sounds: wheezing: expiratory that is mild, is scattered, Respiratory rate: 18 Vital Signs: 03:48 BP 110 / 81; Pulse 98; Resp 18; Temp 98.9(TE); Pulse Ox 98% on R/A; Weight 80.74 kg lp1 (R); Height 5 ft. 7 in. (170.18 cm); Pain 0/10; 06:56 BP 108 / 86; Pulse 96; Resp 16; Temp 98.5; Pulse Ox 100% on R/A; rv 03:48 Body Mass Index 27.88 (80.74 kg, 170.18 cm) lp1 MDM: 06:19 Differential diagnosis: acute asthma, exercise-induced asthma, reactive airway, URI, mh7 Pneumonia. Data reviewed: vital signs, nurses notes, lab test result(s), Flu: negative COVID. Data interpreted: Pulse oximetry: on room air is 98 %. Interpretation: normal. Counseling: I had a detailed discussion with the patient and/or guardian regarding: the historical points, exam findings, and any diagnostic results supporting the discharge/admit diagnosis, lab results, radiology results, the need for outpatient follow up, to return to the emergency department if symptoms worsen or persist or if there are any questions or concerns that arise at home. Response to treatment: the patient's symptoms have markedly improved after treatment. 06:22 Patient medically screened. [facility] 03/14 03:47 Order name: Influenza Screen (a \T\ B) [facility] 03/14 03:47 Order name: COVID-19 [facility] 03/14 03:47 Order name: Chest Single View XRAY [facility] 03/14 06:13 Order name: COVID-19/FLU A+B; Complete Time: 06:19 EDMS Administered Medications: 04:04 Drug: predniSONE 60 mg Route: PO; lp1 06:56 Follow up: Response: No adverse reaction rv 06:31 Drug: Albuterol - atroVENT (3:1) (2.5 mg - 0.5 mg) 3 ml Route: Nebulizer; rv 06:56 Follow up: Response: No adverse reaction rv Disposition: 03/14/20 06:22 Discharged to Home. Impression: Asthma Exacerbation. - Condition is Stable. - Discharge Instructions: Asthma, Adult, [id number]. - Prescriptions for ipratropium- albuterol 0.5 mg-3 mg(2.5 mg base)/3 mL Inhalation solution for nebulization - inhale 3 milliliter by NEBULIZATION route 4 times per day As needed; 20 milliliter. Prednisone 20 mg Oral Tablet - take 2 tablet by ORAL route once daily for 5 days; 10 tablet. Albuterol Sulfate 90 mcg/actuation - inhale 1-2 puff by INHALATION route every 4-6 hours; 1 Inhaler. - Medication Reconciliation Form, Thank You Letter, Antibiotic Education, Prescription Opioid Use form. - Follow up: Private Physician; When: 1 - 2 days; Reason: Worsening of condition, Recheck today's complaints, Continuance of care, Re-evaluation by your physician. - Problem is an acute exacerbation. - Symptoms have improved. Signatures: Dispatcher [employer] EDMS Gaby Lyons RN RN lp1 Jakob Leon RN RN rv Mathieu Miramontes MD MD mh7 Corrections: (The following items were deleted from the chart) 05:20 03:48 Influenza Screen (A ordered. [facility] EDMS 05:21 03:48 CORONAVIRUS ordered. [facility] EDMS 06:57 06:22 03/14/2020 06:22 Discharged to Home. Impression: Asthma Exacerbation. Condition rv is Stable. Forms are Medication Reconciliation Form, Thank You Letter, Antibiotic Education, Prescription Opioid Use. Follow up: Private Physician; When: 1 - 2 days; Reason: Worsening of condition, Recheck today's complaints, Continuance of care, Re-evaluation by your physician. Problem is an acute exacerbation. Symptoms have improved. mh7
--- NOTE | 2020-03-14 06:23 | ER ---
Nurse's Notes [facility] Name: Heather Paul Age: 24 yrs Sex: Female : 1995 Arrival Date: 03/14/2020 Time: 03:36 Bed 7 Private MD: Diagnosis: Asthma Exacerbation Presentation: 03/14 03:48 Chief complaint: Patient states: Difficulty breathing x 2 days with congestion, runny lp1 nose, productive cough; Denies fever; Reports Albuterol neb at home x 1 hour ago without relief; Requests COVID testing; Hx of asthma, triggered by weather changes. Coronavirus screen: Client denies travel out of the [place] in the last 14 days. congestion, cough unrelated to allergies, runny nose. Ebola Screen: No symptoms or risks identified at this time. Initial Sepsis Screen: Does the patient meet any 2 criteria? No. Patient's initial sepsis screen is negative. Does the patient have a suspected source of infection? No. Patient's initial sepsis screen is negative. Risk Assessment: Do you want to hurt yourself or someone else? Patient reports no desire to harm self or others. Onset of symptoms was March 14, 2020. 03:48 Method Of Arrival: Ambulatory lp1 03:48 Acuity: ALISA 3 lp1 Triage Assessment: 03:52 General: Appears in no apparent distress. Behavior is calm. Respiratory: Reports lp1 shortness of breath at rest cough that is productive, persistent Airway is patent Respiratory effort is even, unlabored, Respiratory pattern is regular, Breath sounds are diminished bilaterally. Onset: The symptoms/episode began/occurred gradually, the patient has mild shortness of breath. Derm: Skin is intact, Skin is dry, Skin is normal. [employer]: 03:52 LMP 02/17/2020 lp1 Historical: - Allergies: 03:52 NKA; lp1 - Home Meds: 03:52 Albuterol Inhl [Active]; Albuterol Inhl [Active]; Claritin Oral [Active]; Zyrtec Oral lp1 [Active]; - PMHx: 03:52 Asthma; lp1 - PSHx: 03:52 None; lp1 - Immunization history:: Adult Immunizations up to date, Flu vaccine is up to date. - Social history:: Smoking status: Patient denies any tobacco usage or history of. Screenin:52 Abuse screen: Denies threats or abuse. Denies injuries from another. Nutritional lp1 screening: No deficits noted. Tuberculosis screening: No symptoms or risk factors identified. Fall Risk None identified. Assessment: 03:50 Reassessment: Patient requesting oxygen for comfort; NC placed at 2L. lp1 Vital Signs: 03:48 BP 110 / 81; Pulse 98; Resp 18; Temp 98.9(TE); Pulse Ox 98% on R/A; Weight 80.74 kg lp1 (R); Height 5 ft. 7 in. (170.18 cm); Pain 0/10; 06:56 BP 108 / 86; Pulse 96; Resp 16; Temp 98.5; Pulse Ox 100% on R/A; rv 03:48 Body Mass Index 27.88 (80.74 kg, 170.18 cm) lp1 ED Course: 03:36 Patient arrived in ED. am2 03:40 Mathieu Miramontes MD is Attending Physician. [facility] 03:50 Triage completed. lp1 03:50 Arm band placed on. lp1 03:52 Patient has correct armband on for positive identification. Bed in low position. Call lp1 light in reach. 04:02 Jakob Leon, RN is Primary Nurse. rv 04:17 Chest Single View XRAY In Process Unspecified. EDMS 06:56 No provider procedures requiring assistance completed. Patient did not have IV access rv during this emergency room visit. Administered Medications: 04:04 Drug: predniSONE 60 mg Route: PO; lp1 06:56 Follow up: Response: No adverse reaction rv 06:31 Drug: Albuterol - atroVENT (3:1) (2.5 mg - 0.5 mg) 3 ml Route: Nebulizer; rv 06:56 Follow up: Response: No adverse reaction rv Outcome: 06:22 Discharge ordered by . 7 06:57 Discharged to home ambulatory. rv 06:57 Condition: improved 06:57 Discharge instructions given to patient, Instructed on discharge instructions, follow up and referral plans. medication usage, Demonstrated understanding of instructions, follow-up care, medications, Prescriptions given X 3. 06:57 Patient left the ED. rv Signatures: Dispatcher [employer] EDMS Gaby Lyons RN RN 1 Kaia Santos am2 Jakob Leon, CHRISTEN RN rv Mathieu Miramontes, [place] mh7
[2020-03-14] MEDS ORDERED: ALBUTEROL 2.5 MG/3 ML NEB SOL ONE (06:42)
[2020-03-14] MEDS ORDERED: IPRATROPIUM BROM 0.5MG/2.5ML ONE (06:42)
[2020-03-14 07:03] VITALS: BP 108/86; TEMP 98.5; O2SAT 100
--- NOTE | 2020-03-14 09:28 | RAD REPORT ---
EXAM DESCRIPTION: RAD - Chest Single View - 03/14/2020 4:17 am CLINICAL HISTORY: COUGH, difficulty breathing, congestion COMPARISON: Two view chest May 2019 TECHNIQUE: AP portable chest image was obtained 03/14/2020 4:17 am . FINDINGS: Lung volumes are low compared to the prior study. No peripheral mass or consolidation. No failure or volume overload. Interstitial markings are within range of normal. Heart and vasculature a re normal. No measurable pleural effusion and no pneumothorax. No acute bony abnormality seen. No acu te aortic findings suspected. IMPRESSION: No acute cardiopulmonary process.
== END 2020-03-14 06:57 | disposition home or self-care (01) ==
LOC: ER 03:34
DX: J45.901 Unspecified asthma with (acute) exacerbation (principal); Z20.822 Contact with and (suspected) exposure to COVID-19
CPT/HCPCS: 0240U; 71045; 99284; J7512

== ENCOUNTER 2020-05-07 08:27 | Emergency (ER) | payer OTHER ==
--- OUTSIDE RECORDS SUMMARY | 2020-05-07 08:29 | XMS REPORT | Continuity of Care Document ---
:1995 Author Organization [facility] t Address [address] [place] [address] Care Team Providers Name Role Phone Eric [...] Clinicians Facility Department ID 2019-05-21 2019-05-21 Emergency [facility] [phone] [id number] 05:29:16 07:07:00 Maggie Helton [id number] [place] [id number] [place] [id number] [id number] Results This patient has no known results.
[2020-05-07] MEDS ORDERED: MORPHINE 4 MG/ML SYR ONE ×4 (09:22→18:14)
[2020-05-07] MEDS ORDERED: ONDANSETRON 4 MG/2 ML VIAL ONE (09:22)
--- NOTE | 2020-05-07 10:08 | RAD REPORT ---
EXAM DESCRIPTION: CT - Spine Lumbar Wo Con - 05/07/2020 9:54 am CLINICAL HISTORY: Numbness/tingling;Pain, trip and fall precipitating pain symptoms COMPARISON: None. TECHNIQUE: Thin section axial imaging of the lumbar spine was performed. Sagittal and coronal recon struction images were generated and reviewed. All CT scans are performed using dose optimization technique as appropriate and may include automated exposure control or mA/KV adjustment according to patient size. FINDINGS: Lumbar bodies are normal in height and alignment. No fracture or acute vertebral body find ing. No disc space narrowing present. Slight narrowing of the posterior L5-S1 level can be seen bello lly. Central canal detail is inherently limited. No suspicion for disc herniation or significant degree of disc bulging. Central spinal stenosis is not identifiable. Patient may have mild foraminal encroachm ent at each exit foramen L4-5 without overall foraminal stenosis. No paraspinal mass or hematoma. SI joints are unremarkable. IMPRESSION: CT lumbar spine examination shows no acute vertebral body or acute disc finding. Mild L4-5 disc bulge changes are present not causing canal or foramen stenosis.
[2020-05-07 10:55] LABS: Urine Blood 2+ (NEG); Urine Glucose NEGATIVE (NEG); Urine Protein NEGATIVE (NEG); Urine Specific Gravity >1.030 (1.005-1.030)
--- NOTE | 2020-05-07 12:49 | RAD REPORT ---
EXAM DESCRIPTION: MRI - Brain Wo Cont - 05/07/2020 12:26 pm CLINICAL HISTORY: TRAUMA Headache, drowsiness COMPARISON: MANDIBLE 4 VIEWS dated 07/04/2011; Spine Lumbar Wo Con dated 05/07/2020; C Spine Wo Cont da yadira 05/07/2020 TECHNIQUE: Multi-sequence, multiplanar MR imaging of the brain was performed without contrast. FINDINGS: No intracranial hemorrhage, hydrocephalus or extra-axial fluid collections. No edema or sh ift of midline structures. No findings to suspect brain mass. DWI is negative for acute CVA. Midline structures are normally formed. Mastoid air cells and paranasal sinuses are clear. IMPRESSION: No acute or or pathologic intracranial abnormalities.
--- NOTE | 2020-05-07 12:57 | RAD REPORT ---
EXAM DESCRIPTION: MRI - C Spine Wo Cont- 05/07/2020 12:39 pm CLINICAL HISTORY: pain Trauma, neck injury, radiculopathy COMPARISON: No comparisons FINDINGS: Cervical vertebral bodies are normal in height and alignment. No suspicious marrow edema or marrow replacing process. No fracture or traumatic subluxation. The craniocervical junction is normal. C2-3 level: Minimal posterior disc bulge. C3-4 level: Small osteophyte/ disc complex with canal or foraminal stenosis. C4-5 level: Small osteophyte/ disc complex mildly attenuates the anterior subarachnoid space. C5-6 level: Small posterior osteophyte/ disc complex is present attenuating the anterior subarachnoid space. C6-7 level: No significant findings. C7-T1 level: No significant findings. Cervical cord is normal in size and signal. IMPRESSION: Minimal cervical degenerative changes are present. No finding suspicious for acute traum a related abnormality.
[2020-05-07] MEDS ORDERED: METHYLPREDNISOLONE 125 MG INJ ONE (14:09)
--- NOTE | 2020-05-07 14:11 | RAD REPORT ---
EXAM DESCRIPTION: MRI - MRA Head Wo Cont - 05/07/2020 1:41 pm CLINICAL HISTORY: pain CVA COMPARISON: MANDIBLE 4 VIEWS dated 07/04/2011; Brain Wo Cont dated 05/07/2020; C Spine Wo Cont dated 05/07/2020 FINDINGS: 3D noncontrast [id number] MR angiography of the [place] was performed. No aneurysm, flow-limiting stenosis or vascular malformation is seen. Forward flow seen in codominant vertebral arteries. The visualized dural venous sinuses appear patent. IMPRESSION: No significant flow abnormality of the [place] is identified.
--- NOTE | 2020-05-07 15:21 | RAD REPORT ---
EXAM DESCRIPTION: MRI - Thoracic Spine Wo Contr - 05/07/2020 3:08 pm CLINICAL HISTORY: fall Fall, trauma, radiculopathy COMPARISON: Lumbar Spine Wo Con dated 05/07/2020 FINDINGS: The vertebral body heights and disc spaces are maintained. Marrow pattern of the thoracic spine is within normal limits. No significant herniated disc, canal stenosis or foraminal stenosis at any level. No paraspinal mass or hematoma. The thoracic cord is normal in size and signal. IMPRESSION: Unremarkable study.
--- NOTE | 2020-05-07 15:28 | RAD REPORT ---
EXAM DESCRIPTION: MRI - Lumbar Spine Dasia Fairchild- 05/07/2020 3:09 pm CLINICAL HISTORY: fall Trauma, fall, radiculopathy. COMPARISON: No comparisons FINDINGS: Vertebral body heights are within normal limits. No aggressive marrow pattern is observed. No fracture is suspected. The conus medullaris terminates at a normal level. No thickening of the cauda equina or clumping of n erve roots seen. L1-2 level: No significant findings. L2-3 level: No significant findings. L3-4 level: Mild facet and ligamentum flavum hypertrophy is present L4-5 level: Mild posterior disc bulge with mild facet and ligamentum flavum hypertrophy. Mild central canal narrowing. L5-S1 level: Mild posterior disc bulge. Mild facet and ligament flavum hypertrophy. IMPRESSION: Mild lower lumbar spondylosis is evident. No acute lumbar spine abnormality is discerned.
--- NOTE | 2020-05-07 16:43 | EDPHYS ---
Physician Documentation [facility] Name: Heather Paul Age: 24 yrs Sex: Female : 1995 Arrival Date: 05/07/2020 Time: 08:32 Bed 20 Private MD: ED Physician Raymond Shelley HPI: 05/07 09:14 This 24 yrs old Black Female presents to ER via EMS with complaints of low back pain kdr and pain down her legs since falling . 09:14 Details of fall: The patient fell from an upright position, while standing, while kdr walking. Onset: The symptoms/episode began/occurred suddenly, just prior to arrival. Associated injuries: The patient sustained injury to the low back. Severity of symptoms: At their worst the symptoms were moderate, in the emergency department the symptoms are unchanged. The patient has not experienced similar symptoms in the past. The patient has not recently seen a physician. 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 - Social history:: Smoking status: unknown. ROS: 09:14 Constitutional: Negative for fever, chills, and weight loss, Eyes: Negative for injury, kdr pain, redness, and discharge, ENT: Negative for injury, pain, and discharge, Neck: Negative for injury, pain, and swelling, Cardiovascular: Negative for chest pain, palpitations, and edema, Respiratory: Negative for shortness of breath, cough, wheezing, and pleuritic chest pain, Abdomen/GI: Negative for abdominal pain, nausea, vomiting, diarrhea, and constipation, : Negative for injury, bleeding, discharge, and swelling, Skin: Negative for injury, rash, and discoloration, Psych: Negative for depression, anxiety, suicide ideation, homicidal ideation, and hallucinations, Allergy/Immunology: Negative for hives, rash, and allergies, Endocrine: Negative for neck swelling, polydipsia, polyuria, polyphagia, and marked weight changes, Hematologic/Lymphatic: Negative for swollen nodes, abnormal bleeding, and unusual bruising. 09:14 Back: Positive for decreased range of motion, pain at rest, pain with movement, of the lumbar area, Negative for 09:14 MS/extremity: Positive for decreased range of motion, pain, tingling, Tingling in he rfeet. Exam: 09:14 Constitutional: This is a well developed, well nourished patient who is awake, alert, kdr and in no acute distress. Head/Face: Normocephalic, atraumatic. Eyes: Pupils equal round and reactive to light, extra-ocular motions intact. Lids and lashes normal. Conjunctiva and sclera are non-icteric and not injected. Cornea within normal limits. Periorbital areas with no swelling, redness, or edema. Neck: Trachea midline, no thyromegaly or masses palpated, and no cervical lymphadenopathy. Supple, full range of motion without nuchal rigidity, or vertebral point tenderness. No Meningismus. Chest/axilla: Normal chest wall appearance and motion. Nontender with no deformity. No lesions are appreciated. Cardiovascular: Regular rate and rhythm with a normal S1 and S2. No gallops, murmurs, or rubs. Normal PMI, no JVD. No pulse deficits. Respiratory: Lungs have equal breath sounds bilaterally, clear to auscultation and percussion. No rales, rhonchi or wheezes noted. No increased work of breathing, no retractions or nasal flaring. Abdomen/GI: Soft, non-tender, with normal bowel sounds. No distension or tympany. No guarding or rebound. No evidence of tenderness throughout. Skin: Warm, dry with normal turgor. Normal color with no rashes, no lesions, and no evidence of cellulitis. Psych: Awake, alert, with orientation to person, place and time. Behavior, mood, and affect are within normal limits. 09:14 Back: pain, that is moderate, that is severe, of the lumbar area, ROM is painful, decreased, normal spinal alignment noted, CVA tenderness, is absent. 09:14 Musculoskeletal/extremity: Extremities are rigid and inflexible. 09:14 Neuro: Motor: Babinski testing reveals downgoing, right leg and left leg. Vital Signs: 08:30 BP 116 / 88; Pulse 75; Resp 20; Temp 98.4; Pulse Ox 100% ; dm5 08:33 BP 119 / 63; Pulse 62; Resp 19; Temp 98.4; Pulse Ox 100% ; Weight 85.28 kg; Height 5 jl7 ft. 7 in. (170.18 cm); Pain 10/10; 09:00 BP 109 / 58; Pulse 56; Resp 16; Pulse Ox 100% ; dm14 09:30 BP 107 / 77; Pulse 62; Resp 18; Pulse Ox 100% ; dm14 10:15 BP 104 / 68; Pulse 70; Resp 16; Pulse Ox 100% ; dm14 11:00 BP 101 / 69; Pulse 53; Resp 16; Pulse Ox 99% ; dm14 11:30 BP 102 / 76; Pulse 54; Resp 16; Pulse Ox 100% ; dm14 13:01 BP 104 / 72; Pulse 58; Resp 18; Pulse Ox 100% ; dm14 13:30 BP 97 / 67; Pulse 61; Resp 16; Pulse Ox 100% ; dm14 14:00 BP 100 / 71; Pulse 66; Resp 16; Pulse Ox 100% ; dm14 15:30 BP 110 / 73; Pulse 64; Resp 16; Pulse Ox 100% ; dm14 08:33 Body Mass Index 29.45 (85.28 kg, 170.18 cm) jl7 MDM: 14:07 Data reviewed: vital signs, nurses notes. ED course: Just returned from X-ray, d/w tech [facility] attempt to expedite MRI spine - [address] lumbar spine is negative. Current exam. the patient has minimal movement of both lower extremities, Babinski's is negative, rectal tone good. Sensation altered (sharp/dull) from navel down. . 16:42 Patient medically screened. kdr 05/07 09:58 Order name: Urine Dipstick--Ancillary (enter results); Complete Time: 11:57 em1 05/07 09:58 Order name: Urine --Ancillary (enter results); Complete Time: 11:57 em1 05/07 16:34 Order name: Flu em1 05/07 16:34 Order name: CORONAVIRUS (COVID-19) : Document "Date of Symptom Onset" if Symptomatic. em1 05/07 08:58 Order name: CT Lumbar Spine Wo Con; Complete Time: 10:11 kdr 05/07 10:20 Order name: C Spine Wo Cont; Complete Time: 13:42 EDMS 05/07 10:20 Order name: MRA Head Wo Cont; Complete Time: 15:07 EDMS 05/07 12:13 Order name: MRI - Brain Wo Cont; Complete Time: 13:42 em1 05/07 16:38 Order name: Chem 7 kdr 05/07 16:38 Order name: CBC with Diff kdr 05/07 09:56 Order name: Kuhn; Complete Time: 09:56 sr5 05/07 13:49 Order name: Lumbar Spine Wo Con; Complete Time: 15:51 EDMS 05/07 13:50 Order name: Thoracic Spine Wo Contr; Complete Time: 15:51 EDMS 05/07 16:00 Order name: Transfer - Initiate; Complete Time: 16:23 kdr Administered Medications: 03:45 Drug: morphine 4 mg Route: IVP; Site: right antecubital; dm14 15:29 Follow up: Response: No adverse reaction; Pain is decreased dm14 09:10 Drug: morphine 4 mg Route: IVP; Site: right antecubital; dm14 09:32 Follow up: Response: No adverse reaction; Pain is decreased dm14 09:10 Drug: Zofran (Ondansetron) 4 mg Route: IVP; Site: right antecubital; dm14 09:32 Follow up: Response: No adverse reaction dm14 10:15 Drug: morphine 4 mg Route: IVP; Site: right antecubital; dm14 10:40 Follow up: Response: No adverse reaction; Pain is decreased dm14 13:55 Drug: SOLU-Medrol 125 mg Route: IVP; Site: right antecubital; dm14 15:28 Follow up: Response: No adverse reaction dm14 18:00 Drug: morphine 4 mg Route: IVP; Site: right antecubital; dm14 18:21 Follow up: Response: No adverse reaction dm14 Disposition: 05/07/20 16:[address] [facility]. Diagnosis are Weakness, Other slipping, tripping and stumbling and falls, Low back pain, Spinal Shock/Contusion. - Reason for transfer: Higher level of care. - Accepting physician is Dr. Garcia. - Condition is Fair. - Problem is new. - Symptoms are unchanged. Signatures: Dispatcher [employer] EDMS Raymond Shelley MD MD kdr Thompson Lr PA PA cp Resecker, Sam, RN RN sr5 Destiney Brush RN RN jl7 Radha Chun wa Purnima Gil, RN RN dm14 Corrections: (The following items were deleted from the chart) 13:49 13:45 Spine Lumbar W/Wo Cont ordered. EDMS EDMS 13:50 13:45 Thoracic Spine W/Wo Contr ordered. EDNJ EDMS 17:43 16:35 Influenza Screen (A ordered. EDMS EDMS 17:43 16:35 CORONAVIRUS ordered. EDNJ EDMS 18:08 16:42 05/07/2020 16:[address] [facility]. wa Diagnosis is Weakness; Other slipping, tripping and stumbling and falls; Low back pain; Spinal Shock/Contusion. Reason for transfer: Higher level of care. Accepting physician is Dr. Garcia. Condition is Fair. Problem is new. Symptoms are unchanged. kdr
--- NOTE | 2020-05-07 16:43 | ER ---
Nurse's Notes [facility] Name: Heather Paul Age: 24 yrs Sex: Female : 1995 Arrival Date: 05/07/2020 Time: 08:32 Bed 20 Private MD: Diagnosis: Weakness;Other slipping, tripping and stumbling and falls;Low back pain;Spinal Shock/Contusion Presentation: 05/07 08:33 Chief complaint: EMS states: Toned out for back pain, pt tripped and fell and hit her jl7 low back on the couch. Did not hit her head, no LOC. 1000 mg Tylenol PO given. Coronavirus screen: Client denies travel out of the [place] in the last 14 days. At this time, the client does not indicate any symptoms associated with coronavirus-19. Ebola Screen: No symptoms or risks identified at this time. Initial Sepsis Screen: Does the patient meet any 2 criteria? No. Patient's initial sepsis screen is negative. Does the patient have a suspected source of infection? No. Patient's initial sepsis screen is negative. Risk Assessment: Do you want to hurt yourself or someone else? Patient reports no desire to harm self or others. Onset of symptoms was May 07, 2020. Care prior to arrival: Medication(s) given: Tylenol, 1000 mg. 08:33 Method Of Arrival: EMS: [place] [id number] 08:33 Acuity: ALISA 4 jl7 10:20 Acuity: ALISA 3 jl7 Triage Assessment: 08:37 General: Appears in no apparent distress. uncomfortable, Behavior is cooperative, jl7 anxious, crying. Pain: Complains of pain in low back area Pain currently is 10 out of 10 on a pain scale. Neuro: Level of Consciousness is awake, alert, obeys commands, Oriented to person, place, time, situation. Cardiovascular: Patient's skin is warm and dry. Respiratory: Airway is patent Respiratory effort is even, unlabored, Respiratory pattern is regular, symmetrical. Derm: Skin is pink, warm \T\ dry. 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 - Social history:: Smoking status: unknown. Screenin:30 Abuse screen: Denies threats or abuse. Denies injuries from another. Nutritional dm5 screening: No deficits noted. Tuberculosis screening: No symptoms or risk factors identified. Fall Risk Fall in past 12 months (25 points). Assessment: 08:38 General: Appears distressed, uncomfortable, well groomed, Behavior is cooperative, dm5 appropriate for age, crying. Pain: Complains of pain in Pt has low back pain following a fall Pain radiates to States pain radiates down both legs and her feet are tingling Pain currently is 10 out of 10 on a pain scale. 09:20 Reassessment: Pt states pain has decreased. Crying and scared as she can't feel her dm14 feet. 09:45 Reassessment: To CT per stretcher. dm14 10:05 Reassessment: Returned from CT scan. States back pain is 10/10 at this time. dm14 10:30 Reassessment: Appears to be sleeping at present. dm14 11:09 Reassessment: Sleeping soundly at this time. dm14 11:45 Reassessment: To Radiology for an MRI. Jewelry removed and left at bedside. dm14 13:01 Reassessment: Returned from radiology. Pt complaining of 10/10 pain in her back. dm14 14:04 Reassessment: Neuro exam done by Dr. Shelley. Pt scared and teary. dm14 15:30 Reassessment: Returned from radiology. States pain is not bad. dm14 17:30 Reassessment: No change in overall condition. Awaiting transfer to [facility]. dm14 Vital Signs: 08:30 BP 116 / 88; Pulse 75; Resp 20; Temp 98.4; Pulse Ox 100% ; dm5 08:33 BP 119 / 63; Pulse 62; Resp 19; Temp 98.4; Pulse Ox 100% ; Weight 85.28 kg; Height 5 jl7 ft. 7 in. (170.18 cm); Pain 10/10; 09:00 BP 109 / 58; Pulse 56; Resp 16; Pulse Ox 100% ; dm14 09:30 BP 107 / 77; Pulse 62; Resp 18; Pulse Ox 100% ; dm14 10:15 BP 104 / 68; Pulse 70; Resp 16; Pulse Ox 100% ; dm14 11:00 BP 101 / 69; Pulse 53; Resp 16; Pulse Ox 99% ; dm14 11:30 BP 102 / 76; Pulse 54; Resp 16; Pulse Ox 100% ; dm14 13:01 BP 104 / 72; Pulse 58; Resp 18; Pulse Ox 100% ; dm14 13:30 BP 97 / 67; Pulse 61; Resp 16; Pulse Ox 100% ; dm14 14:00 BP 100 / 71; Pulse 66; Resp 16; Pulse Ox 100% ; dm14 15:30 BP 110 / 73; Pulse 64; Resp 16; Pulse Ox 100% ; dm14 08:33 Body Mass Index 29.45 (85.28 kg, 170.18 cm) jl7 ED Course: 08:30 Patient has correct armband on for positive identification. Bed in low position. Call dm5 light in reach. Side rails up X2. 08:32 Patient arrived in ED. em1 08:36 Triage completed. jl7 08:36 Raymond Shelley MD is Attending Physician. kdr 08:37 Arm band placed on right wrist. jl7 08:38 Darlene De Santiago, RN is Primary Nurse. dm5 08:55 Inserted saline lock: 20 gauge in right antecubital area, using aseptic technique. dm14 09:05 Radiology exam delayed due to test not completed at this time. sj 09:54 CT Lumbar Spine Wo Con In Process Unspecified. EDMS 09:55 Kuhn cath inserted, using sterile technique, 16 Fr., by ks, balloon inflated, urine sr5 specimen collected. other 80 mL clear yellow. UPreg negative. 10:44 Primary Nurse role handed off by Darlene De Santiago, RN dm14 10:44 Purnima Gil, CHRISTEN is Primary Nurse. dm14 12:26 C Spine Wo Cont In Process Unspecified. EDMS 12:26 MRA Head Wo Cont In Process Unspecified. EDMS 12:26 MRI - Brain Wo Cont In Process Unspecified. EDMS 14:59 [facility] transfer center contacted to initiate transfer. em1 15:08 Lumbar Spine Wo Con In Process Unspecified. EDMS 15:08 Thoracic Spine Wo Contr In Process Unspecified. 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 dm14 17:30 Report given to [facility]. dm14 17:30 Patient transferred, IV remains in place. dm14 Administered Medications: 03:45 Drug: morphine 4 mg Route: IVP; Site: right antecubital; dm14 15:29 Follow up: Response: No adverse reaction; Pain is decreased dm14 09:10 Drug: morphine 4 mg Route: IVP; Site: right antecubital; dm14 09:32 Follow up: Response: No adverse reaction; Pain is decreased dm14 09:10 Drug: Zofran (Ondansetron) 4 mg Route: IVP; Site: right antecubital; dm14 09:32 Follow up: Response: No adverse reaction dm14 10:15 Drug: morphine 4 mg Route: IVP; Site: right antecubital; dm14 10:40 Follow up: Response: No adverse reaction; Pain is decreased dm14 13:55 Drug: SOLU-Medrol 125 mg Route: IVP; Site: right antecubital; dm14 15:28 Follow up: Response: No adverse reaction dm14 18:00 Drug: morphine 4 mg Route: IVP; Site: right antecubital; dm14 18:21 Follow up: Response: No adverse reaction dm14 Outcome: 16:42 ER care complete, transfer ordered by . kdr 17:30 Transferred by ground EMS to [facility]. dm14 17:30 Condition: stable 18:08 Patient left the ED. mt 18:20 Discharge instructions given to EMS. dm14 Signatures: Dispatcher [employer] Darlene Ruano, RN RN dm5 Raymond Shelley MD MD kdr Jones, Susan sj Martinez, Eric em1 Sebas Kaba, RN RN 5 Destiney Brush RN RN jean7 Radha Chun hi Purnima Gil RN RN dm14
[2020-05-07 17:16] LABS: Absolute Lymphocytes (CBC) 0.8 K/uL (0.7-4.9); Basophils % 0.3 % (0-1.3); Hematocrit 39.7 % (36.0-45.0); Lymphocytes % 11.2 % (15.3-44.8); RBC Red Blood Cell Count 4.75 M/uL (3.86-4.86)
[2020-05-07 17:26] LABS: BUN Blood Urea Nitrogen 12 mg/dL (7-18); Bicarbonate 23 mmol/L (21-32); Glucose Level 107 mg/dL (74-106); Potassium 4.2 mmol/L (3.5-5.1); Sodium Level 140 mmol/L (136-145)
[2020-05-07 18:23] VITALS: TEMP 98.4
[2020-05-07 18:29] LABS: SARS-COV-2 RT PCR NEGATIVE (NEGATIVE)
[2020-05-07 18:30] VITALS: O2SAT 100
[2020-05-07 18:35] VITALS: BP 110/73
== END 2020-05-07 18:08 | disposition short-term general hospital (02) ==
LOC: ER 08:27
DX: S34.109A Unspecified injury to unspecified level of lumbar spinal cord, initial encounter (principal); W01.0XXA Fall on same level from slipping, tripping and stumbling without subsequent striking against object, initial encounter; J45.909 Unspecified asthma, uncomplicated; Z20.822 Contact with and (suspected) exposure to COVID-19
CPT/HCPCS: 85025; 80048; 36415; 81025; 81003; 0240U; 72131; 70551; 72141; 72146; 72148; 70544; 51702; 96375; 96374; 99285; J2930; J2405

== ENCOUNTER 2021-04-21 15:52 | Emergency (ER) | payer OTHER ==
--- OUTSIDE RECORDS SUMMARY | 2021-04-21 16:02 | XMS REPORT | Continuity of Care Document ---
:1995 Author Organization [facility] t Address [address] [place] [address] Care Team Providers Name Role Phone Olga Primary Care Physician SAILAJA BENSON Attending Clinician Unavailable Radiology Attending Clinician Unavailable RADIOLOGY Attending Clinician Unavailable Raoul REYNAGA S Attending Clinician SAILAJA BENSON Admitting Clinician Unavailable Payers Payer Name Policy Type Policy Number Effective Date Expiration Date S hung [place] [employer] [id number] 2017 HEALTH 00:00:00 MEDICAID [facility] [id number] Problems This patient has no known problems. Allergies, Adverse Reactions, Alerts Allergy Allergy Status Severity Reaction(s) Onset Inactive Treating Comm ents Source Name Type Date Date Clinician NO KNOWN Allergy Active [facility] NO KNOWN Drug Active [facility] Social History Social Habit Start Date Stop Date Quantity Comments Source Exposure to Not sure [facility] SARS-CoV-2 (event) Medica l Branch Alcohol intake 2018-01-19 2018-01-19 0 /d [facility] 00:00:00 00:00:00 [facility] Branch Tobacco use and 2016-05-03 2016-05-03 Never used [facility] exposure 00:00:00 00:00:00 Medical Branch Sex Ass[birth year] [facility] 00:00:00 00:00:00 Medical Branch Smoking Status Start Date Stop Date Source Never smoker [facility] Medications Ordered Filled Start Stop Current Ordering Indication Dosage Frequency Signature Comments Components Source Medication Medication Date Date Medication? Clinician (SIG) Name Name codeine-gua 2020-0 2020- No 10mL 10 mL, Uni vers ifenesin 3-17 03-17 Oral, ity of (ROBITUSSIN 12:00: 12:01 ONCE, 1 [facility] AC) 10-100 00 :00 dose, Tue Medi abimael mg/5 mL 05/21/19 at Branch solution 10 0700, ELVIS mL benzonatate 2020-0 Yes [id number] 200mg Take 1 Univers 200 mg 3-17 capsule by ity of capsule 00:00: mouth 3 [place] 00 (three) Medical times Branch daily as needed for Cough. ibuprofen 2020-0 Yes [id number] 800mg Take 1 U nivers 800 mg 3-17 tablet by ity of tablet 00:00: mouth [place] 00 every 8 Medical (eight) Branch hours as needed for Pain (scale 4-6). albuterol 2020-0 Yes [id number] 2.5mg Inhale 3 Univers 2.5 mg /3 3-17 mL every 4 ity of mL (0.083 00:00: (four) [place] %) 00 hours. May Medical nebulizer also Branch solution nebulize one extra every 6 hours. albuterol 2020-0 Yes [id number] 2{puff} Inhale 2 Univers 90 3-17 Puffs ity of mcg/actuati 00:00: every 4 [place] as on inhaler 00 (four) Medical hours as Branch needed for Wheezing or Shortness of Breath. benzonatate 2020-0 Yes [id number] 200mg Take 1 Univers 200 mg 3-17 capsule by ity of capsule 00:00: mouth 3 [place] 00 (three) Medical times Branch daily as needed for Cough. ibuprofen 2020-0 Yes [id number] 800mg Take 1 U nivers 800 mg 3-17 tablet by ity of tablet 00:00: mouth [place] 00 every 8 Medical (eight) Branch hours as needed for Pain (scale 4-6). albuterol 2020-0 Yes [id number] 2.5mg Inhale 3 Univers 2.5 mg /3 3-17 mL every 4 ity of mL (0.083 00:00: (four) [place] %) 00 hours. May Medical nebulizer also Branch solution nebulize one extra every 6 hours. albuterol 2020-0 Yes [id number] 2{puff} Inhale 2 Univers 90 3-17 Puffs ity of mcg/actuati 00:00: every 4 [place] as on inhaler 00 (four) Medical hours as Branch needed for Wheezing or Shortness of Breath. benzonatate 2019-0 Yes [id number] 200mg Take 1 Univers 200 mg 3-17 capsule by ity of capsule 00:00: mouth 3 [place] 00 (three) Medical times Branch daily as needed for Cough. ibuprofen 2019-0 Yes [id number] 800mg Take 1 U nivers 800 mg 3-17 tablet by ity of tablet 00:00: mouth [place] 00 every 8 Medical (eight) Branch hours as needed for Pain (scale 4-6). albuterol 2020-0 Yes [id number] 2.5mg Inhale 3 Univers 2.5 mg /3 3-17 mL every 4 ity of mL (0.083 00:00: (four) [place] %) 00 hours. May Medical nebulizer also Branch solution nebulize one extra every 6 hours. albuterol 2019-0 Yes [id number] 2{puff} Inhale 2 Univers 90 3-17 Puffs ity of mcg/actuati 00:00: every 4 [place] as on inhaler 00 (four) Medical hours as Branch needed for Wheezing or Shortness of Breath. acetaminoph 2017-03 Yes 1{tbl} Take 1 Un hal en-codeine 0-28 tablet by ity of 300-30 mg 00:00: mouth [place] tablet 00 every 6 Medical (six) Branch hours as needed for Pain (scale 4-6). acetaminoph 2017-03 Yes 1{tbl} Take 1 Un hal en-codeine 0-28 tablet by ity of 300-30 mg 00:00: mouth [place] tablet 00 every 6 Medical (six) Branch hours as needed for Pain (scale 4-6). acetaminoph 2017-03 Yes 1{tbl} Take 1 Un hal en-codeine 0-28 tablet by ity of 300-30 mg 00:00: mouth [place] tablet 00 every 6 Medical (six) Branch hours as needed for Pain (scale 4-6). Vital Signs Vital Name Observation Time Observation Value Comments Source HEIGHT 2020-05-07 19:57:00 170.2 cm WEIGHT 2020-05-07 19:57:00 85.28 kg HEIGHT 2020-05-07 19:57:00 170.2 cm WEIGHT 2020-05-07 19:57:00 85.28 kg Systolic blood 2019-05-21 10:27:00 113 mm[Hg] Univer sity of pressure [facility] Diastolic blood 2019-05-21 10:27:00 79 mm[Hg] Unive rsity of [facility] Heart rate 2019-05-21 10:27:00 94 /min Universi ty of [facility] Body temperature 2019-05-21 10:27:00 37.33 Jackelyn Univ ersity of [facility] Respiratory rate 2019-05-21 10:27:00 16 /min Univ ersity of [facility] Body height 2019-05-21 10:27:00 170.2 cm Universi ty of [facility] Body weight 2019-05-21 10:27:00 80.74 kg Universi ty of [facility] BMI 2019-05-21 10:27:00 27.88 kg/m2 Universi ty of [facility] Oxygen saturation in 2019-05-21 10:27:00 99 /min University Arterial blood by [facility] Pulse oximetry Branch Systolic blood 2019-05-21 10:27:00 113 mm[Hg] Univer sity of [facility] Diastolic blood 2019-05-21 10:27:00 79 mm[Hg] Unive rsity of pressure [facility] Heart rate 2019-05-21 10:27:00 94 /min Universi ty of [facility] Body temperature 2019-05-21 10:27:00 37.33 Jackelyn Univ ersity of [facility] Respiratory rate 2019-05-21 10:27:00 16 /min Univ ersity of [facility] Body height 2019-05-21 10:27:00 170.2 cm Universi ty of [facility] Body weight 2019-05-21 10:27:00 80.74 kg Universi ty of [facility] BMI 2019-05-21 10:27:00 27.88 kg/m2 General acute hospital Oxygen saturation in 2019-05-21 10:27:00 99 /min University Arterial blood by [facility] Pulse oximetry Branch Procedures Procedure Date / Time Performed Performing Clinician Gianfranco e XR PELVIS 3+ VW 2020-12-28 19:45:05 Requisition, Paper [facility] NOTICE OF PRIVACY 2020-12-28 19:16:51 Doctor Unassigned, No [facility]/REFUSAL FOR 2020-12-28 19:16:39 Doctor Unassigned, No [facility] [place] DIAGNOSIS AND Name Medical Branch TREATMENT ASSIGNMENT OF BENEFITS 2020-12-28 19:16:26 Doctor Unassigned, No [facility] XR CHEST 1 VW 2019-05-21 11:22:30 Maggie Silveira [facility] NOTICE OF PRIVACY 2019-05-21 10:19:34 Doctor [facility]assigned, No [facility] 2019-05-21 10:19:10 Doctor Unassigned, No Un [facility] DIAGNOSIS AND [facility] Medical Branch TREATMENT Encounters Start End Encounter Admission Attending Care Care Encounter Source Date/Time Date/Time Type Type Clinicians Facility Department ID 2020-12-31 Emergency [facility] [id number] [facility] ER FER BENSON Neurology [id number] SLE 06:30:18 [facility] 2020-12-28 2020-12-28 Hospital Radiology [facility] [id number] Univers 14:15:58 23:59:00 [facility] [place] [id number] [id number] [facility] 807 Branch 2020-12-28 2020-12-28 Outpatient R RADIOLOGY [facility] [id number] Univers 14:15:00 14:15:[id number] [facility] 2020-12-28 2020-12-28 Hospital Radiology [facility] [id number] Univers 14:15:00 14:15:00 Encounter [place] [id number] ity of [place] [id number] [facility] [id number] [facility] 807 Branch 2020-12-28 2020-12-28 Outpatient R RADIOLOGY [facility] [id number] Univers 00:00:00 00:00:00 ity of [facility] 2019-05-21 2019-05-21 Emergency [facility] [id number] 05:29:16 07:07:00 Maggie Helton [id number] [place] [id number] [facility] [id number] 2019-05-21 2019-05-21 Emergency [facility] [id number] [facility] 05:29:16 07:07:00 Maggie Jaimeston [id number] [facility] [place] [id number] [facility] [id number] [place] [id number] Branch Results Test Description Test Time Test Comments Results Result [facility] e Comments CT, SPINE, 2020-05-08 Unlisted Reason THORACIC, WO 14:16:00 for Exam - CONTRAST Click Yes and Enter Reason [facility] - Below->No MEDICAL CENTER[facility]: [facility] WILL : 1995 Sex: F *FINAL REPORT CT, SPINE, THORACIC, WITHOUT IV CONTRAST INDICATION: Mid-back trauma COMPARISON: None TECHNIQUE: Contiguous noncontrast axial images of the thoracic spine are obtained. Computer reformatted coronal and sagittal images are also provided. Axial images are available in both bone and soft tissue algorithm. DOSE REDUCTION: Dose modulation, iterative reconstruction, and/or weight-based adjustment of the mA/kV was utilized to reduce the radiation dose to as low as reasonably achievable. FINDINGS: Nomenclature: C7-T1 is axial image 24. Alignment: Normal. Vertebrae: No acute fracture. No aggressive osseous lesions. Spondylosis: No high-grade canal or foraminal stenosis. Soft tissues: Unremarkable. IMPRESSION:No acute thoracic fracture or traumatic malalignment. Signed: Titi Mcdaniels Verified Date/Time: 05/08/2020 14:16:40 -GLUCOSE METER 2020-05-08 12:33:00 Test Item Value Reference Range Interpretation Comme nts POC-GLUCOSE METER (BEAKER) 108 mg/dL 70-110 : TESTED AT [facility] [address] [facility] (test code = 1538) [facility], [address]: Pe Manager/Techni jonathon ID = [id number] for ALEX GARCIA SCREEN, [id number] 05:54:00 Test Item Value Reference Range Interpretation Comments TEST URINE (BEAKER) (test Negative code = 583) CBC W/PLT COUNT & AUTO [id number] 05:11:00 Test Item Value Reference Range Interpretation Comments WHITE BLOOD CELL COUNT (BEAKER) 10.7 K/ L 3.5-10.5 H (test code = 775) RED BLOOD CELL COUNT (BEAKER) 4.72 M/ L 3.93-5.22 (test code = 761) HEMOGLOBIN (BEAKER) (test code = 12.6 GM/DL 11.2-15.7 410) HEMATOCRIT (BEAKER) (test code = 39.7 % 34.1-44.9 411) MEAN CORPUSCULAR VOLUME (BEAKER) 84.1 fL 79.4-94.8 (test code = 753) MEAN CORPUSCULAR HEMOGLOBIN 26.7 pg 25.6-32.2 (BEAKER) (test code = 751) MEAN CORPUSCULAR HEMOGLOBIN CONC 31.7 GM/DL 32.2-35.5 L (BEAKER) (test code = 752) RED CELL DISTRIBUTION WIDTH 14.2 % 11.7-14.4 (BEAKER) (test code = 412) PLATELET COUNT (BEAKER) (test 289 K/CU MM 150-450 code = 756) MEAN PLATELET VOLUME (BEAKER) 10.8 fL 9.4-12.3 (test code = 754) NUCLEATED RED BLOOD CELLS 0 /100 WBC 0-0 (BEAKER) (test code = 413) NEUTROPHILS RELATIVE PERCENT 87 % (BEAKER) (test code = 429) LYMPHOCYTES RELATIVE PERCENT 9 % (BEAKER) (test code = 430) MONOCYTES RELATIVE PERCENT 4 % (BEAKER) (test code = 431) EOSINOPHILS RELATIVE PERCENT 0 % (BEAKER) (test code = 432) BASOPHILS RELATIVE PERCENT 0 % (BEAKER) (test code = 437) NEUTROPHILS ABSOLUTE COUNT 9.24 K/ L 1.56-6.13 H (BEAKER) (test code = 670) LYMPHOCYTES ABSOLUTE COUNT 0.96 K/ L 1.18-3.74 L (BEAKER) (test code = 414) MONOCYTES ABSOLUTE COUNT (BEAKER) 0.44 K/ L 0.24-0.36 H (test code = 415) EOSINOPHILS ABSOLUTE COUNT 0.00 K/ L 0.04-0.36 L (BEAKER) (test code = 416) BASOPHILS ABSOLUTE COUNT (BEAKER) 0.01 K/ L 0.01-0.08 (test code = 417) IMMATURE GRANULOCYTES-RELATIVE 0 % 0-1 PERCENT (BEAKER) (test code = 2801) BASIC METABOLIC [id number] 05:06:00 Test Item Value Reference Range Interpretation Comments SODIUM (BEAKER) 136 meq/L 136-145 (test code = 381) POTASSIUM (BEAKER) 4.5 meq/L 3.5-5.1 (test code = 379) CHLORIDE (BEAKER) 107 meq/L 98-107 (test code = 382) CO2 (BEAKER) (test 21 meq/L 22-29 L code = 355) BLOOD UREA NITROGEN 12 mg/dL 7-21 (BEAKER) (test code = 354) CREATININE (BEAKER) 0.90 mg/dL 0.57-1.25 (test code = 358) GLUCOSE RANDOM 120 mg/dL 70-105 H (BEAKER) (test code = 652) CALCIUM (BEAKER) 9.0 mg/dL 8.4-10.2 (test code = 697) EGFR (BEAKER) (test 92 mL/min/1.73 ESTIMA AMBER GFR IS code = 1092) sq m NOT ACCURATE CREATININE CLEARANCE IN PREDICTING GLOMERULAR FILTRATION RATE . ESTIMATED GFR I S NOT APPLICABLE FOR DIALYSIS PATIEN TS. Pe Manager ID - EDASIXR CHEST 1 [id number] 11:25:01Impression: No radiographic evidence for acute cardiopulmonary disease. RL: [id number] AFC: [id number] Indication: Cough, shortness of breath, wheezing Comparison: None Findings: Single AP view of the chest. The cardiopericardial silhouette iswithin normal limits. The lungs are clear bilaterally. The visualized bonythorax is intact. [facility], Radiant Results Inft User - 05/21/2019 6:26 AM CDTIndication: Cough, shortness of breath, wheezingComparison: NoneFindings: Single AP view of the chest. The cardiopericardial silhouette iswithin normal limits. The lungs are clear bilaterally. The visualized bonythorax is intact.IMPRESSIONImpression:No r adiographic evidence for acute cardiopulmonary disease.RL: [id number]: [id number] signed by Chey Jacome MD, PhD at 05/21/2019 6:25 AM [facility]
[2021-04-21 16:40] LABS: Urine Blood Trace-intact (Negative); Urine Glucose Negative (Negative); Urine Protein 1+ (Negative); Urine Specific Gravity >=1.030 (1.005-1.030)
[2021-04-21 16:53] LABS: Urine Specific Gravity/Preg >1.030 (1.005-1.030)
[2021-04-21 17:36] LABS: Absolute Lymphocytes (CBC) 1.6 K/uL (0.7-4.9); Hematocrit 38.1 % (36.0-45.0); MPV 8.3 fL (7.6-11.3); RBC Red Blood Cell Count 4.55 M/uL (3.86-4.86)
[2021-04-21 17:48] LABS: Potassium 3.7 mmol/L (3.5-5.1)
--- NOTE | 2021-04-21 18:18 | ER ---
Nurse's Notes [facility] Name: Heather Paul Age: 25 yrs Sex: Female : 1995 Arrival Date: 04/21/2021 Time: 15:54 Bed 9 Private MD: Diagnosis: Irregular menstruation, unspecified Presentation: 04/21 16:17 Chief complaint: Patient states: lower ABD pain for several days, feels like menstrual jg9 cramps but for the last couple hours the pain has been consistent. LMP 03/15/2021-03/18/2021, took test 2 days ago on 04/19/2021 and it was positive-no follow-up. Coronavirus screen: Vaccine status: Patient reports receiving the 2nd dose of the covid vaccine. Ebola Screen: Patient negative for fever greater than or equal to 101.5 degrees Fahrenheit, and additional compatible Ebola Virus Disease symptoms Patient denies exposure to infectious person. Patient denies travel to an Ebola-affected area in the 21 days before illness onset. Initial Sepsis Screen: Does the patient meet any 2 criteria? No. Patient's initial sepsis screen is negative. Does the patient have a suspected source of infection? No. Patient's initial sepsis screen is negative. Risk Assessment: Do you want to hurt yourself or someone else? Patient reports no desire to harm self or others. Onset of symptoms is unknown. 16:17 Method Of Arrival: Ambulatory 9 16:17 Acuity: ALISA 3 jg9 Triage Assessment: 16:21 General: Appears in no apparent distress. Behavior is calm. Pain: Complains of pain in jg9 abdomen-lower abdominal. GI: Reports lower abdominal pain, cramping. 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 - Social history:: Smoking status: Patient denies any tobacco usage or history of. Screenin:21 Abuse screen: Denies threats or abuse. Denies injuries from another. Nutritional jg9 screening: No deficits noted. Tuberculosis screening: No symptoms or risk factors identified. Fall Risk None identified. Assessment: 16:21 GI: Bowel sounds present X 4 quads. Abd is soft and non tender X 4 quads. jg9 18:42 Reassessment: Pt discharged but did not wait for paperwork. Pt pulled iv herself and ab2 left. Vital Signs: 16:17 BP 120 / 76; Pulse 86; Resp 16 S; Temp 98.8(O); Pulse Ox 100% on R/A; Weight 86.18 kg jg9 (R); Height 5 ft. 7 in. (170.18 cm) (R); 16:17 Body Mass Index 29.76 (86.18 kg, 170.18 cm) jg9 ED Course: 15:54 Patient arrived in ED. mr 16:20 Triage completed. jg9 16:21 Arm band placed on right wrist. jg9 16:29 Farheen Lopez FNP-C [facility]. kb 16:29 Raymond Shelley MD is Attending Physician. kb 17:21 Saud Hewitt is Primary Nurse. ab2 17:21 Patient has correct armband on for positive identification. Bed in low position. Call ab2 light in reach. Side rails up X2. 17:21 No provider procedures requiring assistance completed. ab2 17:27 Inserted saline lock: 20 gauge in right antecubital area, using aseptic technique. ab2 Blood collected. 17:28 CBC with Automated Diff Sent. ab2 17:28 Test, Serum Sent. ab2 17:29 Basic Metabolic Panel Sent. ab2 17:29 CBC with Diff Sent. ab2 18:42 IV discontinued. ab2 Administered Medications: No medications were administered Point of Care Testing: Urine : 16:42 hCG Reading: Negative; Control Reading: Positive; jg9 Outcome: 18:17 Discharge ordered by . kb 18:42 Discharged to home ambulatory. ab2 18:42 Condition: good 18:42 Discharge instructions given to patient, Instructed on discharge instructions, follow up and referral plans. 18:43 Patient left the ED. ab2 Signatures: Farheen Lopez FNP-C FNP-Alejandra Nasra TavaresParisa RN RN jg9 Saud Hewitt ab2
--- NOTE | 2021-04-21 18:18 | EDPHYS ---
Physician Documentation [facility] Name: Heather Paul Age: 25 yrs Sex: Female : 1995 Arrival Date: 04/21/2021 Time: 15:54 Bed 9 Private MD: ED Physician Raymond Shelley HPI: 04/21 17:20 This 25 yrs old Black Female presents to ER via Ambulatory with complaints of Abdominal kb Pain. 17:20 The patient presents with abdominal pain in the lower abdomen. Onset: The kb symptoms/episode began/occurred 2 day(s) ago. The symptoms do not radiate. Associated signs and symptoms: Pertinent positives: headache. The symptoms are described as constant. Modifying factors: The symptoms are alleviated by nothing, the symptoms are aggravated by nothing. Severity of pain: At its worst the pain was mild in the emergency department the pain is unchanged. The patient has not experienced similar symptoms in the past. The patient has not recently seen a physician. pt reports lower abd pain that started 2 days ago. States she is 9 days late on her period so she took a test 2 days ago and it was positive. States she has had fatigue, headache, moodswings, bloating. . 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 - Social history:: Smoking status: Patient denies any tobacco usage or history of. ROS: 17:18 Constitutional: Negative for fever, chills, and weight loss. kb 17:18 Abdomen/GI: Positive for abdominal pain, Negative for nausea, vomiting, and diarrhea. 17:18 Neuro: Positive for headache. 17:18 All other systems are negative. Exam: 17:18 Constitutional: This is a well developed, well nourished patient who is awake, alert, kb and in no acute distress. Head/Face: Normocephalic, atraumatic. ENT: Moist Mucous membranes Respiratory: Respirations even and unlabored. No increased work of breathing. Talking in full sentences Abdomen/GI: Soft, non-tender. No distention Skin: Warm, dry with normal turgor. Normal color. MS/ Extremity: Pulses equal, no cyanosis. Neurovascular intact. Full, normal range of motion. Neuro: Awake and alert, GCS 15, oriented to person, place, time, and situation. Moves all extremities. Normal gait. Psych: Awake, alert, with orientation to person, place and time. Behavior, mood, and affect are within normal limits. Vital Signs: 16:17 BP 120 / 76; Pulse 86; Resp 16 S; Temp 98.8(O); Pulse Ox 100% on R/A; Weight 86.18 kg 9 (R); Height 5 ft. 7 in. (170.18 cm) (R); 16:17 Body Mass Index 29.76 (86.18 kg, 170.18 cm) jg9 MDM: 17:12 Patient medically screened. kb 17:19 Data reviewed: vital signs, nurses notes. Data interpreted: Pulse oximetry: on room air kb is 100 %. Interpretation: normal. 18:16 Counseling: I had a detailed discussion with the patient and/or guardian regarding: the kb historical points, exam findings, and any diagnostic results supporting the discharge/admit diagnosis, lab results, the need for outpatient follow up, an OB/Gyne specialist, to return to the emergency department if symptoms worsen or persist or if there are any questions or concerns that arise at home. 04/21 16:40 Order name: Urine Dipstick-Ancillary; Complete Time: 16:41 EDMS 04/21 16:46 Order name: Urine --Ancillary (enter results) bd 04/21 16:47 Order name: Urine --Ancillary; Complete Time: 16:57 EDMS 04/21 17:18 Order name: CBC with Diff kb 04/21 17:18 Order name: Basic Metabolic Panel; Complete Time: 17:49 kb 04/21 17:18 Order name: Test, Serum; Complete Time: 18:14 kb 04/21 16:22 Order name: Urine Test (obtain specimen); Complete Time: 16:42 9 04/21 16:22 Order name: Urine Dipstick-Ancillary (obtain specimen); Complete Time: 16:42 [facility] 04/21 17:18 Order name: CBC with Automated Diff; Complete Time: 17:46 EDMS Administered Medications: No medications were administered Point of Care Testing: Urine : 16:42 hCG Reading: Negative; Control Reading: Positive; jg9 Disposition Summary: 04/21/21 18:17 Discharge Ordered Location: Home kb Condition: Stable kb Diagnosis - Irregular menstruation, unspecified kb Followup: kb - With: Emergency Department - When: As needed - Reason: Worsening of condition Followup: kb - With: Private Physician - When: 2 - 3 days - Reason: Recheck today's complaints, Continuance of care, Re-evaluation by your physician Discharge Instructions: - Discharge Summary Sheet kb - Abdominal Pain, Adult, [id number] kb Forms: - Medication Reconciliation Form kb - Thank You Letter kb - Antibiotic Education kb - Prescription Opioid Use kb Addendum: 04/23/2021 19:17 Co-signature as Attending Physician, Raymond Shelley MD I agree with the assessment and k dr plan of care. Signatures: Dispatcher [employer] EDMS Farheen Lopez, NETTING INSPECTOR-C NETTING INSPECTOR-Ckb Raymond Shelley MD MD [facility] Parisa Allen RN RN jg9 Corrections: (The following items were deleted from the chart) 04/21 18:17 18:17 Lower abdominal pain, unspecified kb kb
[2021-04-21 19:23] VITALS: BP 120/76; TEMP 98.8; O2SAT 100
== END 2021-04-21 18:43 | disposition home or self-care (01) ==
LOC: ER 15:52
DX: N92.6 Irregular menstruation, unspecified (principal)
CPT/HCPCS: 36415; 80048; 81003; 81025; 84703; 85025; 99283

== ENCOUNTER 2021-11-10 10:07 | Emergency (ER) | payer OTHER ==
--- OUTSIDE RECORDS SUMMARY | 2021-11-10 10:11 | XMS REPORT | Continuity of Care Document ---
:1995 Author Organization [facility] t Address [address] [place] [address] Care Team Providers Name Role Phone BERNIE BIBI Primary Care Physician Unavailable NATO BENSON Attending Clinician Unavailable DINH VELÁSQUEZ Attending Clinician Unavailable Dinh Velásquez MD Attending Clinician Doctor Unassigned, [place] Attending Clinician Unavailable Radiology Attending Clinician Unavailable RADIOLOGY Attending Clinician Unavailable Maggie Silveira MD Attending Clinician NATO BENSON Admitting Clinician Unavailable DINH VELÁSQUEZ Admitting Clinician Unavailable Payers Payer Name Policy Type Policy Number Effective Date Expiration Date S hung [place] [employer] [id number] 2017 HEALTH 00:00:00 MEDICAID [facility] ST[facility] [id number] Problems Condition Condition Condition Status Onset Resolution Last Treating Co mments Source Name Details Category Date Date Treatment Clinician Date Low back Low back Disease [facility] Allergies, Adverse Reactions, Alerts Allergy Allergy Status Severity Reaction(s) Onset Inactive Treating Comm ents Source Name Type Date Date Clinician NO KNOWN Allergy Active DAO Baron [facility] NO KNOWN Drug Active Jacqueline ALLERGCALOS Class ity of [facility] Social History Social Habit Start Date Stop Date Quantity Comments Source Exposure to 2021-09-22 2021-10-02 Not sure [facility] SARS-CoV-2 (event) 00:00:00 14:29:00 Medica Branch Tobacco use and 2020-05-07 2020-05-[address] [facility] vargas exposure 00:00:00 00:00:00 [facility] Alcohol intake 2018-01-19 2018-01-19 0 /d [facility] 00:00:00 00:00:00 [facility] Sex Assigned At [birth year] DAO John 00:00:00 00:00:00 [facility] Smoking Status Start Date Stop Date Source Never smoked tobacco [facility] Medications Ordered Filled Start Stop Current Ordering Indication Dosage Frequency Signature Comments Components Source Medication Medication Date Date Medication? Clinician (SIG) Name Name naproxen 2021- Yes [id number] 500mg Take 1 U nivers 500 mg 7-30 08-10 tablet by ity of tablet 00:00: 04:59 mouth in [place] 00 :00 the [facility] morning Branch and 1 tablet in the evening. Take with meals. Do all this for 10 days. fLUoxetine 2021- No 20mg QD Take [address] (PROzac) 20 3-09 03-09 capsule Luke s MG capsule 00:00: 23:59 (20 mg Medi abimael 00 :00 total) by Center mouth daily. montelukast Yes 10mg QD Take [address] (SINGULAIR) 3-08 by mouth Luke s 10 mg 15:46: daily. Medical tablet 14 Center ondansetron Yes 4mg Take [address] (ZOFRAN) 4 3-08 by mouth 2 Iva es MG tablet 15:46: (two) Medical 14 times Center daily as needed for Nausea. albuterol Yes 1{puff} Q.5D Inhale [address] HFA 3-08 puff by [facility] (VENTOLIN 15:46: mouth via Med ical HFA) 90 14 inhaler 2 Center mcg/actuati (two) on inhaler times daily. levalbutero Yes 1{puff} Q.5D Inhale [address] [facility] (XOPENEX 3-08 puff by [facility] HFA) 45 15:46: mouth via Medic al mcg/actuati [address] on inhaler (two) times daily. codeine-gua 2020- No 10mL 10 mL, Uni vers ifenesin 3-17 03-17 Oral, ity of (ROBITUSSIN 12:00: 12:01 [place] 10-100 00 :00 dose, Tue Medi abimael mg/5 mL 05/21/19 at Branch solution 10 0700, ELVIS mL benzonatate 2020-0 Yes [id number] 200mg Take 1 Univers 200 mg 3-17 capsule by ity of capsule 00:00: mouth 3 [place] 00 (three) Medical times Branch daily as needed for Cough. albuterol 2020-0 Yes [id number] 2.5mg Inhale 3 Univers 2.5 mg /3 3-17 mL every 4 ity of mL (0.083 00:00: (four) [place] %) 00 hours. May Medical nebulizer also Branch solution nebulize one extra every 6 hours. albuterol 2020-0 Yes [id number] 2{puff} Inhale 2 Univers 90 3-17 Puffs ity of mcg/actuati 00:00: every 4 [place] as on inhaler 00 (four) Medical hours as Branch needed for Wheezing or Shortness of Breath. benzonatate 2020-0 Yes [id number] 200mg Take 1 Univers 200 mg 3-17 capsule by ity of capsule 00:00: mouth 3 [place] 00 (three) Medical times Branch daily as needed for Cough. ibuprofen 2020-0 Yes [id number] 800mg Take 1 U nivers 800 mg 3-17 tablet by ity of tablet 00:00: mouth [place] 00 every 8 Medical (eight) Branch hours as needed for Pain (scale 4-6). ibuprofen 2020-0 Yes [id number] 800mg Take 1 U nivers 800 mg 3-17 tablet by ity of tablet 00:00: mouth [place] 00 every 8 Medical (eight) Branch hours as needed for Pain (scale 4-6). albuterol 2020-0 Yes [id number] 2.5mg Inhale 3 Univers 2.5 mg /3 3-17 mL every 4 ity of mL (0.083 00:00: (four) [place] %) 00 hours. May Medical nebulizer also Branch solution nebulize one extra every 6 hours. albuterol 2020-0 Yes [id number] 2{puff} Inhale 2 Univers 90 3-17 Puffs ity of mcg/actuati 00:00: every 4 [place] as on inhaler 00 (four) Medical hours as Branch needed for Wheezing or Shortness of Breath. benzonatate 2020-0 Yes [id number] 200mg Take 1 Univers 200 mg 3-17 capsule by ity of capsule 00:00: mouth 3 [place] 00 (three) Medical times Branch daily as needed for Cough. ibuprofen 2020-0 Yes [id number] 800mg Take 1 U nivers 800 mg 3-17 tablet by ity of tablet 00:00: mouth [place] 00 every 8 Medical (eight) Branch hours as needed for Pain (scale 4-6). albuterol 2020-0 Yes [id number] 2.5mg Inhale 3 Univers 2.5 mg /3 3-17 mL every 4 ity of mL (0.083 00:00: (four) [place] %) 00 hours. May Medical nebulizer also Branch solution nebulize one extra every 6 hours. albuterol 2020-0 Yes [id number] 2{puff} Inhale 2 Univers 90 3-17 Puffs ity of mcg/actuati 00:00: every 4 Hermann as on inhaler 00 (four) Medical hours as Branch needed for Wheezing or Shortness of Breath. benzonatate 2020-0 Yes [id number] 200mg Take 1 Univers 200 mg 3-17 capsule by ity of capsule 00:00: mouth 3 [place] 00 (three) Medical times Branch daily as needed for Cough. ibuprofen 2020-0 Yes [id number] 800mg Take 1 U nivers 800 mg 3-17 tablet by ity of tablet 00:00: mouth [place] 00 every 8 Medical (eight) Branch hours as needed for Pain (scale 4-6). albuterol 2020-0 Yes [id number] 2.5mg Inhale 3 Univers 2.5 mg /3 3-17 mL every 4 ity of mL (0.083 00:00: (four) [place] %) 00 hours. May Medical nebulizer also Branch solution nebulize one extra every 6 hours. albuterol 2020-0 Yes [id number] 2.5mg Inhale 3 Univers 2.5 mg /3 3-17 mL every 4 ity of mL (0.083 00:00: (four) [place] %) 00 hours. May Medical nebulizer also Branch solution nebulize one extra every 6 hours. albuterol 2019-0 Yes [id number] 2{puff} Inhale 2 Univers 90 3-17 Puffs ity of mcg/actuati 00:00: every 4 [place] as on inhaler 00 (four) Medical hours as Branch needed for Wheezing or Shortness of Breath. benzonatate 2019-0 Yes [id number] 200mg Take 1 Univers 200 mg 3-17 capsule by ity of capsule 00:00: mouth 3 [place] 00 (three) Medical times Branch daily as needed for Cough. ibuprofen 2019-0 Yes [id number] 800mg Take 1 U nivers 800 mg 3-17 tablet by ity of tablet 00:00: mouth [place] 00 every 8 Medical (eight) Branch hours as needed for Pain (scale 4-6). albuterol Yes [id number] 2{puff} Inhale 2 Univers 90 3-17 Puffs [...] acetaminoph 2017-03 Yes 1{tbl} Take 1 Un hla en-codeine 0-28 tablet by ity of 300-30 mg 00:00: mouth [place] tablet 00 every 6 Medical (six) Branch hours as needed for Pain (scale 4-6). acetaminoph 2017-03 Yes 1{tbl} Take 1 Un hal en-codeine 0-28 tablet by ity of 300-30 mg 00:00: mouth [place] tablet 00 every 6 Medical (six) Branch hours as needed for Pain (scale 4-6). acetaminoph 2018- Yes 1{tbl} Take 1 Un hal en-codeine 0-28 tablet by ity of 300-30 mg 00:00: mouth [place] tablet 00 every 6 Medical (six) Branch hours as needed for Pain (scale 4-6). Vital Signs Vital Name Observation Time Observation Value Comments Source HEIGHT 2020-05-07 19:57:00 170.2 cm WEIGHT 2020-05-07 19:57:00 85.28 kg Systolic blood 2021-10-02 19:29:00 121 mm[Hg] Univer [facility]ity of [facility] Diastolic blood 2021-10-02 19:29:00 77 mm[Hg] [facility] Heart rate 2021-10-02 19:29:00 82 /[facility] [place] [facility] temperature 2021-10-02 19:29:00 37.06 Jackelyn Univ [facility] Respiratory rate 2021-10-02 19:29:00 15 /min [facility] Body height 2021-10-02 19:29:00 170.2 cm Universi ty [facility] Body weight 2021-10-02 19:29:00 90.719 kg [facility] BMI 2021-10-02 19:29:00 31.32 kg/m2 [facility] Oxygen saturation in 2021-10-02 19:29:00 97 /min [facility] Arterial blood by [facility] Pulse oximetry Branch HEIGHT 2020-05-07 19:57:00 170.2 cm WEIGHT 2020-05-07 19:57:00 85.28 kg Systolic blood 2019-05-21 10:27:00 113 mm[Hg] Univer sity of [facility] Diastolic blood 2019-05-21 10:27:00 79 mm[Hg] [facility] Heart rate 2019-05-21 10:27:00 94 /min Universi [facility] Body temperature 2019-05-21 10:27:00 37.33 Jackelyn [facility] Respiratory rate 2019-05-21 10:27:00 16 /min [facility] Body height 2019-05-21 10:27:00 170.2 cm Universi ty [facility] Body weight 2019-05-21 10:27:00 80.74 kg Universi ty [facility] BMI 2019-05-21 10:27:00 27.88 kg/m2 Universi ty of [facility] Oxygen saturation in 2019-05-21 10:27:00 99 /min University of Arterial blood by [facility] Pulse oximetry Branch Systolic blood 2019-05-21 10:27:00 113 mm[Hg] Univer sity of pressure [facility] Diastolic blood 2019-05-21 10:27:00 79 mm[Hg] Unive rsity of pressure [facility] Heart rate 2019-05-21 10:27:00 94 /min Universi ty of [facility] Body temperature 2019-05-21 10:27:00 37.33 Jackelyn [facility] Respiratory rate 2019-05-21 10:27:00 16 /min [facility] Body height 2019-05-21 10:27:00 170.2 cm [facility]i [facility] Body weight 2019-05-21 10:27:00 80.74 kg Universi ty [facility] [place] [facility] BMI 2019-05-21 10:27:00 27.88 kg/m2 Universi ty of [facility] Oxygen saturation in 2019-05-21 10:27:00 99 /min University of Arterial blood by [facility] Pulse oximetry Branch Procedures Procedure Date / Time Performing Clinician Source Performed US TRANSVAGINAL 2021-10-02 21:52:00 [facility] POCT TEST 2021-10-02 20:12:00 Dinh Velásquez [facility] URINALYSIS 2021-10-02 20:01:00 Dinh [facility] CONSENT/REFUSAL FOR 2021-10-02 19:14:43 Doctor [facility]igned, [facility] XR PELVIS 3+ VW 2020-12-28 19:45:05 Requisition, Paper [facility] NOTICE OF PRIVACY 2020-12-28 19:16:51 Doctor Unassigned, No [facility] Name [facility] Branch CONSENT/REFUSAL FOR 2020-12-28 19:16:39 Doctor Unassigned, No [facility] Name Medical Branch ASSIGNMENT OF BENEFITS 2020-12-28 19:16:26 Doctor Unassigned, No [facility] XR CHEST 1 VW 2019-05-21 11:22:30 Maggie Silveira [facility] NOTICE OF PRIVACY 2019-05-21 10:19:34 Doctor Unassigned, No Univ [facility] Name Medical [place] CONSENT/REFUSAL FOR 2019-05-21 10:19:10 Doctor Unassigned, No [facility]AT[facility] Name Medical [place] Plan of Care Planned Activity Planned Date Details Comments Source Future Scheduled 2021-11-[address] [facility] Test 00:00:00 (#1) [code = Medical Center INFLUENZA VACCINE (#1)] Future Scheduled 2021-03-[address] [facility] Test 00:00:00 (12+) [code = [facility] Center DEPRESSION SCREENING (12+)] Future Scheduled [address] [facility] Test 00:00:00 malignant neoplasm of Medica l Center cervix (procedure) [code = 008275844] Future Scheduled 2012 DTAP/TDAP/TD VACCINES [facility] Test 00:00:00 (1 - Tdap) [code = Medical C enter DTAP/TDAP/TD VACCINES (1 - Tdap)] Future Scheduled 2011-08-23 HEPATITIS C SCREENING [facility] Test 00:00:00 [code = HEPATITIS C Medical Center SCREENING] Future Scheduled 1994-02-21 COVID-19 VACCINE (#1) [facility] Test 00:00:00 [code = COVID-[address] VACCINE (#1)] Encounters Start End Encounter Admission Attending Care Care Encounter Source Date/Time Date/Time Type Type Clinicians Facility Department ID 2020-12-31 Emergency [facility] [id number] [facility] ER TONY BENSON Neurology [id number] SLE 06:30:18 NATO 2021-10-02 2021-10-02 Emergency X DIDIER, [facility] ERT [id number] Univers 14:30:00 17:41:00 DINH ity of [facility] 2021-10-02 2021-10-02 Emergency [facility] [id number] Univers 14:30:00 17:41:00 Dinh [place] [id number] i ty of [place] [id number] [facility] [id number] [facility] 084 Branch 2021-10-02 2021-10-02 Orders Doctor FORREST [id number] Univers 00:00:00 00:00:00 Only Unassigned, ROBERTO [id number] ity of [place] [facility] [id number] [facility] [id number] [facility] 009 Branch 2020-12-28 2020-12-28 Hospital Radiology [facility] [id number] Univers 14:15:58 23:59:00 Encounter Danie [id number] ity of [place] [id number] [facility] [id number] [facility] 807 Branch 2020-12-28 2020-12-28 Outpatient R RADIOLOGY [facility] [id number] Univers 14:15:00 14:15:00 [id number] ity of [facility] 2020-12-28 2020-12-28 Hospital Radiology [facility] [id number] Univers 14:15:00 14:15:00 Encounter Danie [id number] ity of [place] [id number] [facility] [id number] [facility] 807 Branch 2020-12-28 2020-12-28 Outpatient R RADIOLOGY [facility] [id number] Univers 00:00:00 00:00:00 ity of [facility] 2019-05-21 2019-05-21 [facility] [id number] 05:29:16 07:07:00 Maggie Reyes Danie [id number] [place] [id number] [place] [id number] 2019-05-21 2019-05-21 Emergency [facility] [id number] Univers 05:29:16 07:07:00 Maggie [place] [id number] [facility] [id number] Kelsey [facility] [id number] [facility] 084 Branch Results Test Description Test Time Test Comments Results Result Comments Source POCT TEST 2021-10-02 20:12:00 Test Item Value Reference Range Interpretation Comme nts POCT PREG (test code = 1605) negative On board controls acceptable with C Line (test code = 3574) present POCT PREG LOT # (test code = 3575) [id number] POCT PREG TEST DATE (test code = 3576) 01/03/2023 Lab Interpretation (test code = 82895-8) [facility] WO [id number] 14:16:00Unlisted Reason for Exam - Click Yes and Enter Reason Below->No [facility] : 1995 Sex: FFINAL REPORT CT, SPINE, THORACIC, WITHOUT IV CONTRAST INDICATION: Mid- back trauma COMPARISON: None TECHNIQUE: Contiguous noncontrast axial images of the thoracic spine are obtained. Computerreformatted coronal and sagittal images are also provided. [...] Titi Mcdaniels Verified Date/Time: 05/08/2020 14:16:40 -GLUCOSE [id number] 12:33:00 Test Item Value Reference Range Interpretation Comments POC-GLUCOSE METER 108 mg/dL 70-110 : [facility] ([facility]ER) (test code [facility], = 1538) 89384: Material Handler/Techni jonathon ID = [id number] for LESLEE BEE SCREEN, [id number] 05:54:00 Test Item Value Reference Range Interpretation Comments TEST URINE (BEAKER) (test Negative code = 583) CBC W/PLT COUNT & AUTO [id number] 05:11:00 Test Item Value Reference Range Interpretation [...] (BEAKER) (test code = 2801) BASIC METABOLIC [id number] 05:06:00 Test Item Value Reference Range Interpretation [...] S NOT APPLICABLE FOR DIALYSIS PATIEN TS. Material Handler ID - EDASIXR CHEST 1 [id number] 11:25:01Impression: No radiographic evidence for acute cardiopulmonary disease. RL: [id number] AFC: [id number] Indication: Cough, shortness of breath, wheezing Comparison: [...] clear bilaterally. The visualized bonythorax is intact.IMPRESSIONImpression:No rad iographic evidence for acute cardiopulmonary disease.RL: 460AFC: [id number] signed by Chey Jacome MD, PhD at 05/21/2019 6:25 AM [facility]
[2021-11-10 10:47] LABS: Urine Blood Negative (Negative); Urine Glucose Negative (Negative); Urine Protein Negative (Negative)
[2021-11-10 10:52] LABS: Absolute Lymphocytes (CBC) 1.9 K/uL (0.7-4.9); Hematocrit 39.2 % (36.0-45.0); Lymphocytes % 30.5 % (15.3-44.8); MCV 81.7 fL (80-100); MPV 8.3 fL (7.6-11.3)
[2021-11-10 11:14] LABS: ALT/SGPT 21 U/L (12-78); AST/SGOT 9 U/L (15-37); Albumin 3.4 g/dL (3.4-5.0); Alkaline Phosphatase 70 U/L (45-117); BUN Blood Urea Nitrogen 8 mg/dL (7-18); Bicarbonate 30 mmol/L (21-32); Bilirubin Total 0.2 mg/dL (0.2-1.0); Glomerular Filtration Rate 93 ml/min (=/>90); Glucose Level 90 mg/dL (74-106); Lipase 181 U/L (73-393); Potassium 3.8 mmol/L (3.5-5.1); Protein, Total 7.5 g/dL (6.4-8.2); Sodium Level 137 mmol/L (136-145)
[2021-11-10 11:20] LABS: HCG, Quantitative < 1 mIU/mL (1-3)
--- NOTE | 2021-11-10 11:43 | RAD REPORT ---
EXAM DESCRIPTION: US - Transvaginal Study Probe - 11/10/2021 11:30 am CLINICAL HISTORY: pelvic pain Pelvic pain. COMPARISON: Transvaginal Study Probe dated 07/19/2018 FINDINGS: The uterus is normal in size, shape and echotexture. The uterus measures 9.2 cm The endometrial stripe measures 4 mm, normal. Enlarged right ovary secondary to a simple appearing cyst measuring 4.4 x 3.5 cm. The right ovary rekha sures 5.5 x 3.2 x 4.7 cm with volume of 42 cc. The left ovary measures 2.7 x 1.7 x 2.6 cm with volume of 6 cc. Normal Doppler blood flow was demonstrated to both ovaries. No significant pelvic ascites. IMPRESSION: Bilateral ovarian blood flow. Simple right ovarian cyst which is within normal limits fo r patient of this age.
[2021-11-10] MEDS ORDERED: MORPHINE 4 MG/ML SYR ONE (11:51)
[2021-11-10] MEDS ORDERED: ONDANSETRON 4 MG/2 ML VIAL ONE (11:51)
[2021-11-10] MEDS ORDERED: KETOROLAC 30 MG/ML INJ ONE (11:55)
--- NOTE | 2021-11-10 12:23 | RAD REPORT ---
EXAM DESCRIPTION: CTAbdomen Pelvis W Contrast - 11/10/2021 12:14 pm CLINICAL HISTORY: lower abdominal pain COMPARISON: Abdomen Pelvis W Contrast dated 07/07/2016 TECHNIQUE: CT of the abdomen and pelvis was performed. All CT scans are performed using dose optimization technique as appropriate and may include automated exposure control or mA/KV adjustment according to patient size. FINDINGS: Lower chest: No acute abnormality. Liver: No acute abnormality or suspicious lesions. Biliary: No biliary ductal dilatation. Stomach: No significant focal abnormality. Duodenum: No significant focal abnormality. Pancreas: No significant abnormality. Spleen: No significant abnormality. Adrenal: No suspicious lesions. Kidney/ureter: No hydronephrosis. No renal calculi. Retroperitoneum: No retroperitoneal adenopathy. Vascular: No aneurysm. Bowel: No significant focal abnormality. Normal appendix. Peritoneum: No ascites or free air. Fat containing supraumbilical hernia. Bladder: Grossly unremarkable. Reproductive: 4.6 cm simple appearing cyst in the right adnexa. Based on the patient's age, this does not require imaging follow up. Bones: No acute fracture. Other: n/a IMPRESSION: No acute intra-abdominal or pelvic finding. Normal appendix.
--- NOTE | 2021-11-10 12:33 | EDPHYS ---
Physician Documentation [facility] Name: Heather Paul Age: 26 yrs Sex: Female : 1995 Arrival Date: 11/10/2021 Time: 10:08 Bed 6 Private MD: Claudette Espinoza ED Physician Ismael Chavez HPI: 11/10 12:30 This 26 yrs old Black Female presents to ER via Ambulatory with complaints of Abdominal jmm Pain, Pelvic Pain. 12:30 The patient presents with abdominal pain. Onset: The symptoms/episode began/occurred jmm gradually, 3 day(s) ago. This is a 26-year-old female with no known chronic medical conditions presents emerged part with complaints of pelvic pain which radiates into her abdomen. Patient denies abnormal discharge, dysuria, vaginal bleeding. Denies vomiting or diarrhea.. STEWARD/STEWARDESS SECOND: 10:14 LMP N/A - Depo-provera bm7 Historical: - Allergies: 10:16 NKA; bm7 - Home Meds: 10:16 Depo-Provera 150 mg/mL IM susp 1 mL every 3 mo [Active]; bm7 - PSHx: 10:16 None; bm7 - Immunization history:: Adult Immunizations up to date, Client reports receiving the 2nd dose of the Covid vaccine, Client reports receiving the 1st dose of the Covid vaccine. - Social history:: Smoking status: Patient denies any tobacco usage or history of. ROS: 12:30 Constitutional: Negative for fever, chills, and weight loss, Cardiovascular: Negative jmm for chest pain, palpitations, and edema, Respiratory: Negative for shortness of breath, cough, wheezing, and pleuritic chest pain. 12:30 Abdomen/GI: Positive for abdominal pain. 12:30 : Positive for pelvic pain. 12:30 All other systems are negative. Exam: 12:30 Constitutional: This is a well developed, well nourished patient who is awake, alert, jmm and in no acute distress. Head/Face: atraumatic. Eyes: EOMI, no conjunctival erythema appreciated ENT: Moist Mucus Membranes Neck: Trachea midline, Supple Chest/axilla: Normal chest wall appearance and motion. Cardiovascular: Regular rate and rhythm. No edema appreciated Respiratory: Normal respirations, no respiratory distress appreciated 12:30 Back: Normal ROM Skin: General appearance color normal MS/ Extremity: Moves all extremities, no obvious deformities appreciated, no edema noted to the lower extremities Neuro: Awake and alert Psych: Behavior is normal, Mood is normal, Patient is cooperative and pleasant 12:30 Abdomen/GI: Inspection: abdomen appears normal, Bowel sounds: normal, Palpation: soft, mild abdominal tenderness, in the suprapubic area. Vital Signs: 10:14 BP 107 / 77; Pulse 71; Resp 16; Temp 98.2(TE); Pulse Ox 100% on R/A; Weight 93.89 kg bm7 (R); Height 5 ft. 7 in. (170.18 cm); Pain 8/10; 12:15 BP 104 / 75; Pulse 68; Resp 18; Pulse Ox 100% ; em6 10:14 Body Mass Index 32.42 (93.89 kg, 170.18 cm) bm7 MDM: 10:39 Patient medically screened. [facility] 12:31 Data reviewed: vital signs, nurses notes. Counseling: I had a detailed discussion with vernon the patient and/or guardian regarding: the historical points, exam findings, and any diagnostic results supporting the discharge/admit diagnosis, lab results, radiology results, the need for outpatient follow up, to return to the emergency department if symptoms worsen or persist or if there are any questions or concerns that arise at home. ED course: Pain is alleviated in the ED. Imaging studies are negative. Patient is advised to follow-up with her STEWARD/STEWARDESS SECOND for further evaluation. Patient understood agrees plan of care.. 11/10 10:39 Order name: CBC with Diff; Complete Time: 11:01 [facility] 11/10 10:39 Order name: CMP; Complete Time: 11:40 [facility] 11/10 10:39 Order name: Lipase; Complete Time: 11:40 [facility] 11/10 10:39 Order name: HCG-Quantitative; Complete Time: 11:40 [facility] 11/10 10:47 Order name: Urine Dipstick-Ancillary; Complete Time: 10:51 [facility] 11/10 10:49 Order name: Urine --Ancillary (enter results); Complete Time: 11:01 11/10 10:39 Order name: IV Saline Lock; Complete Time: 10:48 [facility] 11/10 10:39 Order name: Labs collected and sent; Complete Time: 10:48 [facility] 11/10 11:10 Order name: Transvaginal Study Probe; Complete Time: 11:44 [facility] 11/10 11:47 Order name: CT Abd/Pelvis - IV Contrast Only; Complete Time: 12:25 [facility] 11/10 10:39 Order name: Urine Dipstick-Ancillary (obtain specimen); Complete Time: 10:48 [facility] 11/10 10:39 Order name: Urine Test (obtain specimen); Complete Time: 10:48 [facility] Administered Medications: 11:56 Drug: Ketorolac 30 mg Route: IVP; Site: right antecubital; em6 12:33 Follow up: Response: No adverse reaction em6 11:58 Not Given (Physician Discretion): morphine 4 mg IVP once over 4 mins em6 11:58 Not Given (Physician Discretion): Zofran (Ondansetron) 4 mg IVP once; over 2 minutes em6 Disposition: 22:55 Co-signature as Attending Physician, Ismael Chavez DO I agree with the assessment and ms3 plan of care. Disposition Summary: 11/10/21 12:32 Discharge Ordered Location: Home [facility] Condition: Stable [facility] Diagnosis - Other ovarian cysts [facility] Followup: [facility] - With: Private Physician - When: 2 - 3 days - Reason: Recheck today's complaints, Continuance of care, Re-evaluation by your physician Discharge Instructions: - Discharge Summary Sheet [facility] - Ovarian Cyst [facility] Forms: - Medication Reconciliation Form [facility] - Thank You Letter [facility] - Antibiotic Education [facility] - Prescription Opioid Use [facility] Prescriptions: - Diclofenac Sodium 75 mg Oral Tablet Sustained Release - take 1 tablet by ORAL route 2 times per day; 30 tablet; Refills: 0, Product [facility] Selection Permitted Signatures: Dispatcher [employer] EDMS Salvador Stephen PA PA jmm Sims, Marcus, DO DO ms3 Yamile Hyde, RN RN bm7 Emily Meeks RN RN em6 Corrections: (The following items were deleted from the chart) 10:17 10:16 PMHx: Asthma; bm7 bm7 11:10 11:03 Pelvis Complete+US.RAD.BRZ ordered. EDMS EDMS
--- NOTE | 2021-11-10 12:33 | ER ---
Nurse's Notes [facility] Name: Heather Paul Age: 26 yrs Sex: Female : 1995 Arrival Date: 11/10/2021 Time: 10:08 Bed 6 Private MD: Claudette Espinoza Diagnosis: Other ovarian cysts Presentation: 11/10 10:15 Chief complaint: Patient states: I started having lower abdominal pain and pelvic pain bm7 three days ago. It was coming and going and now it is constant. Coronavirus screen: At this time, the client does not indicate any symptoms associated with coronavirus-19. Ebola Screen: No symptoms or risks identified at this time. Initial Sepsis Screen: Does the patient meet any 2 criteria? No. Patient's initial sepsis screen is negative. Does the patient have a suspected source of infection? No. Patient's initial sepsis screen is negative. Risk Assessment: Do you want to hurt yourself or someone else? Patient reports no desire to harm self or others. Onset of symptoms was November 07, 2021. Care prior to arrival: None. 10:15 Method Of Arrival: Ambulatory bm7 10:15 Acuity: ALISA 3 bm7 Triage Assessment: 10:16 General: Appears in no apparent distress. uncomfortable, obese, well groomed, well bm7 developed, Behavior is calm, cooperative, appropriate for age. Pain: Complains of pain in suprapubic area, right lower quadrant and left lower quadrant. EENT: No deficits noted. No signs and/or symptoms were reported regarding the EENT system. Neuro: No deficits noted. Cardiovascular: No deficits noted. Respiratory: No deficits noted. GI: Abdomen is round non-distended, Bowel sounds present X 4 quads. Abd is soft X 4 quads Abdomen is tender to palpation in suprapubic area, right lower quadrant and left lower quadrant Reports nausea, Patient currently denies constipation, diarrhea, rectal bleeding, vomiting. : Denies burning with urination, vaginal bleeding. Derm: No deficits noted. No signs and/or symptoms reported regarding the dermatologic system. Musculoskeletal: No deficits noted. No signs and/or symptoms reported regarding the musculoskeletal system. COGNOS ARCHITECT: 10:14 LMP N/A - Depo-provera bm7 Historical: - Allergies: 10:16 NKA; bm7 - Home Meds: 10:16 Depo-Provera 150 mg/mL IM susp 1 mL every 3 mo [Active]; bm7 - PSHx: 10:16 None; bm7 - Immunization history:: Adult Immunizations up to date, Client reports receiving the 2nd dose of the Covid vaccine, Client reports receiving the 1st dose of the Covid vaccine. - Social history:: Smoking status: Patient denies any tobacco usage or history of. Screenin:48 Abuse screen: Denies threats or abuse. Nutritional screening: No deficits noted. em6 Tuberculosis screening: No symptoms or risk factors identified. Fall Risk IV access (20 points). Total Vu Fall Scale indicates No Risk (0-24 pts). Assessment: 10:36 General: Appears in no apparent distress. comfortable. Pain: Complains of pain in em6 suprapubic area, right lower quadrant and left lower quadrant Pain does not radiate. Pain currently is 8 out of 10 on a pain scale. Quality of pain is described as crampy, pressure, Pain began 1 day ago. Is continuous. Neuro: Velazco Agitation-Sedation Scale (RASS): 0 - Alert and Calm Level of Consciousness is awake, alert, obeys commands, Oriented to person, place, time, situation. Cardiovascular: Heart tones present Capillary refill < 3 seconds Patient's skin is warm and dry. Rhythm is sinus rhythm. Respiratory: Airway is patent Respiratory effort is even, unlabored, Respiratory pattern is regular, symmetrical, Breath sounds are clear bilaterally. GI: Abdomen is round non-distended, Abdomen is tender to palpation in right lower quadrant and left lower quadrant Reports nausea. : No signs and/or symptoms were reported regarding the genitourinary system. EENT: No signs and/or symptoms were reported regarding the EENT system. Derm: No signs and/or symptoms reported regarding the dermatologic system. Musculoskeletal: Circulation, motion, and sensation intact. Range of motion: intact in all extremities. 12:00 Reassessment: Patient appears in no apparent distress at this time. Patient is alert, em6 oriented x 3, equal unlabored respirations, skin warm/dry/pink. Patient states feeling better. Vital Signs: 10:14 BP 107 / 77; Pulse 71; Resp 16; Temp 98.2(TE); Pulse Ox 100% on R/A; Weight 93.89 kg bm7 (R); Height 5 ft. 7 in. (170.18 cm); Pain 8/10; 12:15 BP 104 / 75; Pulse 68; Resp 18; Pulse Ox 100% ; em6 10:14 Body Mass Index 32.42 (93.89 kg, 170.18 cm) bm7 ED Course: 10:08 Patient arrived in ED. am2 10:09 Claudette Espinoza is Private Physician. am2 10:16 [facility] 10:16 Ismael Chavez DO is Attending Physician. m 10:16 Triage completed. bm7 10:16 Arm band placed on left wrist. bm7 10:31 No apparent distress. Resting quietly. Awaiting ED provider evaluation. bm7 10:31 Patient has correct armband on for positive identification. bm7 10:31 Initial lab(s) drawn, by me, sent to lab. Inserted saline lock: 20 gauge in right 7 antecubital area, using aseptic technique. Blood collected. Patient maintains SpO2 saturation greater than 95% on room air. 10:38 Shilo Gentile, RN is Primary Nurse. jd3 11:24 Transvaginal Study Probe In Process Unspecified. EDMS 12:16 CT Abd/Pelvis - IV Contrast Only In Process Unspecified. EDMS Administered Medications: 11:56 Drug: Ketorolac 30 mg Route: IVP; Site: right antecubital; em6 12:33 Follow up: Response: No adverse reaction em6 11:58 Not Given (Physician Discretion): morphine 4 mg IVP once over 4 mins em6 11:58 Not Given (Physician Discretion): Zofran (Ondansetron) 4 mg IVP once; over 2 minutes em6 Medication: 10:49 VIS not applicable for this client. em6 Outcome: 12:32 Discharge ordered by MD. vernon 12:45 Patient left the ED. em6 Signatures: Dispatcher [employer] EDMS Salvador Stephen PA PA jmm Moreno, Amanda am2 Shilo Gentile, CHRISTEN RN jYamile Barnes RN RN bm7 Emily Meeks RN RN em6 Corrections: (The following items were deleted from the chart) 10:17 10:16 PMHx: Asthma; bm7 bm7
[2021-11-10 13:06] VITALS: TEMP 98.2; O2SAT 100
[2021-11-10 13:11] VITALS: BP 104/75
== END 2021-11-10 12:45 | disposition home or self-care (01) ==
LOC: ER 10:07
DX: N83.299 Other ovarian cyst, unspecified side (principal)
CPT/HCPCS: 85025; 36415; 81025; 84702; 81003; 83690; 80053; 74177; 76830; 96374; 99285; Q9967; J2405

== ENCOUNTER 2021-12-22 15:19 | Emergency (ER) | payer OTHER ==
--- OUTSIDE RECORDS SUMMARY | 2021-12-22 15:22 | XMS REPORT | Continuity of Care Document ---
:1995 Author Organization [facility] t Address [address] [place] [address] Care Team Providers Name Role Phone Claudette Espinoza Primary Care Physician NATO BENSON Attending Clinician Unavailable PEBBLES MEHTA Attending Clinician Unavailable Pebbles Mehta PA-C Attending Clinician DINH VELÁSQUEZ Attending Clinician Unavailable Dinh Velásquez MD Attending Clinician Doctor Unassigned, [place] Attending Clinician Unavailable Radiology Attending Clinician Unavailable RADIOLOGY Attending Clinician Unavailable Maggie Silveira MD Attending Clinician NATO BENSON Admitting Clinician Unavailable DINH VELÁSQUEZ Admitting Clinician Unavailable Payers Payer Name Policy Type Policy Number Effective Date Expiration Date Eric ELONG [id number] 2017 HEALTH 00:00:00 MEDICAID [facility] [id number] MEDICAID OF [place] [id number] 2021 00:00:00 Problems Condition Condition Condition Status Onset Resolution Last Treating Co mments Source Name Details Category Date Date Treatment Clinician Date Obesity Obesity Disease Active 2021-03 Univers (BMI (BMI 0-11 ity of 30-39.9) 30-39.9) 00:00: [place] 00 [facility] Low back Low back Disease Active [facility] Medical [address] [place] [address] Allergies, Adverse Reactions, Alerts Allergy Allergy Status Severity Reaction(s) Onset Inactive Treating Comm ents Source Name Type Date Date Clinician NO KNOWN Allergy Active [facility] NO KNOWN Drug Active [facility] Social History Social Habit Start Date Stop Date Quantity Comments Source Exposure to 2021-12-04 2021-12-14 Not sure [facility] SARS-CoV-2 (event) 00:00:00 09:30:00 Medica l [place] Alcohol intake 2021-12-14 2021-12-14 0 /d [facility] 00:00:00 00:00:00 [facility] Tobacco use and 2020-05-07 2020-05-[address] [facility] exposure 00:00:00 00:00:00 [facility] Sex Assigned At [address] [facility] 00:00:00 00:00:00 [facility] Smoking Status Start Date Stop Date Source Never smoked tobacco [facility] Medications Ordered Filled Start Stop Current Ordering Indication Dosage Frequency Signature Comments Components Source Medication Medication Date Date Medication? Clinician (SIG) Name Name PNV 67-iron 2021-03 Yes [id number] 1{capsu Take 1 Univers ps-folate 0-11 le} capsule by ity of no.1-dha 00:00: mouth [place] (VITAFOL 00 daily. Medical ULTRA) 29 Branch mg iron- 1 mg-200 mg Cap PNV 67-iron 2021-03 Yes [id number] 1{capsu Take 1 Univers ps-folate 0-11 le} capsule by ity of no.1-dha 00:00: mouth [place] (VITAFOL 00 daily. Medical ULTRA) 29 Branch mg iron- 1 mg-200 mg Cap naproxen 2021- Yes [id number] 500mg Take 1 U nivers 500 mg 7-30 08-10 tablet by ity of tablet 00:00: 04:59 mouth in [place] 00 :00 the Medical morning Branch and 1 tablet in the evening. Take with meals. Do all this for 10 days. fLUoxetine 2021- No 20mg QD Take [address] (PROzac) 20 3- 03-09 capsule Luke s MG capsule 00:00: 23:59 (20 mg Medi abimael 00 :00 total) by Center mouth daily. fLUoxetine 2020-0 2021- No 20mg QD Take [address] (PROzac) 20 3- 03-09 capsule Luke s MG capsule 00:00: 23:59 (20 mg Medi abimael 00 :00 total) by Center mouth daily. montelukast Yes 10mg QD Take [address] (SINGULAIR) 3-08 by mouth Luke s 10 mg 15:46: daily. Medical tablet 14 Center ondansetron 0 Yes 4mg Take 4 mg C HI [...] [address]ina ter on inhaler (two) times daily. montelukast Yes 10mg QD Take [address] (SINGULAIR) 3-08 by mouth Luke s 10 mg 15:46: daily. Medical tablet 14 Center ondansetron 0 Yes 4mg Take [address] (ZOFRAN) 4 3-08 by mouth 2 Iva es MG tablet 15:46: (two) Medical 14 times Center daily as needed for Nausea. albuterol Yes 1{puff} Q.5D Inhale [address] HFA 3-08 puff by [facility] (VENTOLIN 15:46: mouth via Med ical HFA) 90 14 inhaler 2 Center mcg/actuati (two) on inhaler times daily. levalbutero 0 Yes 1{puff} Q.5D Inhale [address] l (XOPENEX 3-08 puff by L[place]am HFA) 45 15:46: mouth via Medic al mcg/actuati [address] on inhaler (two) times daily. codeine-gua 2020- No 10mL 10 mL, Uni vers ifenesin 3-17 03-17 Oral, ity of (ROBITUSSIN 12:00: 12:01 [place] 10-100 00 :00 dose, Tue Medi abimael mg/5 mL 05/21/19 at Branch solution 10 0700, ELVIS mL benzonatate 2020-0 Yes [id number] 200mg Take 1 Univers 200 mg 3-17 capsule by ity of capsule 00:00: mouth 3 [place] 00 (three) Medical times Branch daily as needed for Cough. albuterol 2020-0 Yes [id number] 2.5mg Inhale 3 Univers 2.5 mg /3 3-17 mL every 4 ity of mL (0.083 00:00: (four) [place] %) 00 hours. May Medical nebulizer also Branch solution nebulize one extra every 6 hours. albuterol 2020-0 Yes [id number] 2{puff} Inhale 2 Univers 90 3-17 Puffs ity of mcg/actuati 00:00: every 4 [place] as on inhaler 00 (four) Medical hours as Branch needed for Wheezing or Shortness of Breath. benzonatate 2020-0 Yes [id number] 200mg Take 1 Univers 200 mg 3-17 capsule by ity of capsule 00:00: mouth 3 [place] 00 (three) Medical times Branch daily as needed for Cough. ibuprofen 2020-0 Yes [id number] 800mg Take 1 U nivers 800 mg 3-17 tablet by ity of tablet 00:00: mouth [place] 00 every 8 Medical (eight) Branch hours as needed for Pain (scale 4-6). ibuprofen 2020-0 Yes [id number] 800mg Take 1 U nivers 800 mg 3-17 tablet by ity of tablet 00:00: mouth [place] 00 every 8 Medical (eight) Branch hours as needed for Pain (scale 4-6). albuterol 2020-0 Yes [id number] 2.5mg Inhale 3 Univers 2.5 mg /3 3-17 mL every 4 ity of mL (0.083 00:00: (four) [place] %) 00 hours. May Medical nebulizer also Branch solution nebulize one extra every 6 hours. albuterol 2020-0 Yes [id number] 2{puff} Inhale 2 Univers 90 3-17 Puffs ity of mcg/actuati 00:00: every 4 [place] as on inhaler 00 (four) Medical hours as Branch needed for Wheezing or Shortness of Breath. benzonatate 2020-0 Yes [id number] 200mg Take 1 Univers 200 mg 3-17 capsule by ity of capsule 00:00: mouth 3 [place] 00 (three) Medical times Branch daily as needed for Cough. ibuprofen 2020-0 Yes [id number] 800mg Take 1 U nivers 800 mg 3-17 tablet by ity of tablet 00:00: mouth [place] 00 every 8 Medical (eight) Branch hours as needed for Pain (scale 4-6). albuterol 2020-0 Yes [id number] 2.5mg Inhale 3 Univers 2.5 mg /3 3-17 mL every 4 ity of mL (0.083 00:00: (four) [place] %) 00 hours. May Medical nebulizer also Branch solution nebulize one extra every 6 hours. albuterol 2020-0 Yes [id number] 2{puff} Inhale 2 Univers 90 3-17 Puffs ity of mcg/actuati 00:00: every 4 [place] as on inhaler 00 (four) Medical hours as Branch needed for Wheezing or Shortness of Breath. benzonatate 2020-0 Yes [id number] 200mg Take 1 Univers 200 mg 3-17 capsule by ity of capsule 00:00: mouth 3 [place] 00 (three) Medical times Branch daily as needed for Cough. ibuprofen 2020-0 Yes [id number] 800mg Take 1 U nivers 800 mg 3-17 tablet by ity of tablet 00:00: mouth [place] 00 every 8 Medical (eight) Branch hours as needed for Pain (scale 4-6). albuterol 2020-0 Yes [id number] 2.5mg Inhale 3 Univers 2.5 mg /3 3-17 mL every 4 ity of mL (0.083 00:00: (four) [place] %) 00 hours. May Medical nebulizer also Branch solution nebulize one extra every 6 hours. albuterol 2020-0 Yes [id number] 2{puff} Inhale 2 Univers 90 3-17 Puffs ity of mcg/actuati 00:00: every 4 [place] as on inhaler 00 (four) Medical hours as Branch needed for Wheezing or Shortness of Breath. benzonatate 2020-0 Yes [id number] 200mg Take 1 Univers 200 mg 3-17 capsule by ity of capsule 00:00: mouth 3 00 (three) Medical times Branch daily as needed for Cough. ibuprofen 2020-0 Yes [id number] 800mg Take 1 U nivers 800 mg 3-17 tablet by ity of tablet 00:00: mouth [place] 00 every 8 Medical (eight) Branch hours as needed for Pain (scale 4-6). albuterol 2020-0 Yes [id number] 2.5mg Inhale 3 Univers 2.5 mg /3 3-17 mL every 4 ity of mL (0.083 00:00: (four) [place] %) 00 hours. May Medical nebulizer also Branch solution nebulize one extra every 6 hours. albuterol 2020-0 Yes [id number] 2{puff} Inhale 2 Univers 90 3-17 Puffs ity of mcg/actuati 00:00: every 4 [place] as on inhaler 00 (four) Medical hours as Branch needed for Wheezing or Shortness of Breath. benzonatate 2020-0 Yes [id number] 200mg Take 1 Univers 200 mg 3-17 capsule by ity of capsule 00:00: mouth 3 00 (three) Medical times Branch daily as needed for Cough. ibuprofen 2020-0 Yes [id number] 800mg Take 1 U nivers 800 mg 3-17 tablet by ity of tablet 00:00: mouth [place] 00 every 8 Medical (eight) Branch hours as needed for Pain (scale 4-6). albuterol 2020-0 Yes [id number] 2.5mg Inhale 3 Univers 2.5 mg /3 3-17 mL every 4 ity of mL (0.083 00:00: (four) [place] %) 00 hours. May Medical nebulizer also Branch solution nebulize one extra every 6 hours. albuterol 2020-0 Yes [id number] 2.5mg Inhale 3 Univers 2.5 mg /3 3-17 mL every 4 ity of mL (0.083 00:00: (four) [place] %) 00 hours. May Medical nebulizer also Branch solution nebulize one extra every 6 hours. albuterol 2020-0 Yes [id number] 2{puff} Inhale 2 Univers 90 3-17 Puffs ity of mcg/actuati 00:00: every 4 [place] as on inhaler 00 (four) Medical hours as Branch needed for Wheezing or Shortness of Breath. benzonatate 2019-0 Yes [id number] 200mg Take 1 Univers 200 mg 3-17 capsule by ity of capsule 00:00: mouth 3 [place] 00 (three) Medical times Branch daily as needed for Cough. ibuprofen 2019-0 Yes [id number] 800mg Take 1 U nivers 800 mg 3-17 tablet by ity of tablet 00:00: mouth [place] 00 every 8 Medical (eight) Branch hours as needed for Pain (scale 4-6). albuterol 2019-0 Yes [id number] 2{puff} Inhale 2 Univers 90 3-17 Puffs [...] WEIGHT 2020-05-07 19:57:00 85.28 kg Systolic blood 2021-12-14 14:43:00 106 mm[Hg] Univer sity of [place] Diastolic blood 2021-12-14 14:43:00 72 [facility] 2021-12-14 14:43:00 73 /min [facility] Body temperature 2021-12-14 14:43:00 36.89 [facility] Respiratory rate 2021-12-14 14:43:00 [facility] Body height 2021-12-14 14:43:00 170.2 cm [facility] Body weight 2021-12-14 14:43:00 94.802 kg [facility] BMI 2021-12-14 14:43:00 32.73 kg/m2 [facility] Systolic blood 2021-10-02 19:29:00 121 mm[Hg] Univer sity of [place] Diastolic blood 2021-10-02 19:29:00 77 mm[Hg] [facility] 2021-10-02 19:29:00 82 /min [facility] Body temperature 2021-10-02 19:29:00 37.06 [facility] Respiratory rate 2021-10-02 19:29:00 15 /min Univ ersity of [place] [facility] Body height 2021-10-02 19:29:00 170.2 cm Universi ty of [place] [facility] Body weight 2021-10-02 19:29:00 90.719 kg Universi ty [facility] [place] [facility] BMI 2021-10-02 19:29:00 31.32 kg/m2 Universi ty of [facility] Oxygen saturation in 2021-10-02 19:29:00 97 /min University of Arterial blood by [facility] Pulse oximetry Branch HEIGHT 2020-05-07 19:57:00 170.2 cm WEIGHT 2020-05-07 19:57:00 85.28 kg Systolic blood 2019-05-21 10:27:00 113 mm[Hg] Univer sity of pressure [place] [facility] [place] Diastolic blood 2019-05-21 10:27:00 79 mm[Hg] Unive rsity of pressure [place] [facility] [place] Heart rate 2019-05-21 10:27:00 94 /min Universi ty of [place] [facility] [place] Body temperature 2019-05-21 10:27:00 37.33 [facility] Univ ersity [facility] [place] [facility] Respiratory rate 2019-05-21 10:27:00 16 /min Univ ers[facility] [place] [facility] Body height 2019-05-21 10:27:00 170.2 cm [facility]i ty [facility] [place] [facility] Body weight 2019-05-21 10:27:00 80.74 kg Universi ty [facility] [place] [facility] BMI 2019-05-21 10:27:00 27.88 kg/m2 Universi ty of [place] [facility] [place] Oxygen saturation in 2019-05-21 10:27:00 99 /min University of Arterial blood by [facility] Pulse oximetry Branch Systolic blood 2019-05-21 10:27:00 113 mm[Hg] Univer sity of pressure [place] [facility] Diastolic blood 2019-05-21 10:27:00 79 mm[Hg] Unive rsity of pressure [place] [facility] Heart rate 2019-05-21 10:27:00 94 /min [facility]i ty [facility] [place] [facility] Body temperature 2019-05-21 10:27:00 37.33 [facility]elyn Univ ersity [facility] [place] [facility] Respiratory rate 2019-05-21 10:27:00 16 /min Univ ersity [facility] [place] [facility] Body height 2019-05-21 10:27:00 170.2 cm [facility] Body weight 2019-05-21 10:27:00 80.74 kg [facility] BMI 2019-05-21 10:27:00 27.88 kg/m2 [facility] Oxygen saturation in 2019-05-21 10:27:00 99 /min [facility] blood by [facility] Pulse oximetry Branch Procedures Procedure Date / Time Performing Clinician Source Performed POCT TEST 2021-12-14 14:59:00 Pebbles Mehta [facility] US TRANSVAGINAL 2021-10-02 21:52:[address] [facility] POCT TEST 2021-10-02 20:12:00 Gordon [facility] URINALYSIS 2021-10-02 20:01:00 Gordon [facility] CONSENT/REFUSAL FOR 2021-10-02 19:14:43 Doctor Unassigned, No Un iversity of [place] DIAGNOSIS AND TREATMENT [facility] [place] XR PELVIS 3+ VW 2020-12-28 19:45:05 Requisition, Paper [facility] NOTICE OF PRIVACY 2020-12-28 19:16:51 Doctor Unassigned, No Univ ersity of [facility] Medical Branch CONSENT/REFUSAL FOR 2020-12-28 19:16:39 Doctor Unassigned, No Un iversity of [place] DIAGNOSIS AND TREATMENT [facility] [place] ASSIGNMENT OF BENEFITS 2020-12-28 19:16:26 Doctor Unassigned, No [facility] XR CHEST 1 VW 2019-05-21 11:22:30 Maggie Silveira [facility] NOTICE OF PRIVACY 2019-05-21 10:19:34 Doctor Unassigned, No Univ ersity of [facility] Branch CONSENT/REFUSAL FOR 2019-05-21 10:19:10 Doctor Unassigned, No Un iversity of [place] DIAGNOSIS AND TREATMENT [facility] Medical [place] Plan of Care Planned Activity Planned Date Details Comments Source Future Scheduled 2021-11-[address] [facility] Test 00:00:00 (#1) [code = [facility] INFLUENZA VACCINE (#1)] Future Scheduled 2021-11-[address] [facility] Test 00:00:00 (#1) [code = Medical Center INFLUENZA VACCINE (#1)] Future Scheduled 2021-03-[address] [facility] Test 00:00:00 (12+) [code = Medical Center DEPRESSION SCREENING (12+)] Future Scheduled 2021-03-[address] [facility] Test 00:00:00 (12+) [code = Medical Center DEPRESSION SCREENING (12+)] Future Scheduled [address] [facility] Test 00:00:00 malignant neoplasm of Medica l Center cervix (procedure) [code = 924297500] Future Scheduled [address] [facility] Test 00:00:00 malignant neoplasm of Medica l Center cervix (procedure) [code = 864266755] Future Scheduled 2012 DTAP/TDAP/TD VACCINES [facility] Test 00:00:00 (1 - Tdap) [code = Medical C enter DTAP/TDAP/TD VACCINES (1 - Tdap)] Future Scheduled 2012 DTAP/TDAP/TD VACCINES [facility] Test 00:00:00 (1 - Tdap) [code = Medical C enter DTAP/TDAP/TD VACCINES (1 - Tdap)] Future Scheduled 2011-08-23 HEPATITIS C SCREENING [facility] Test 00:00:00 [code = HEPATITIS C Medical Center SCREENING] Future Scheduled 2011-08-23 HEPATITIS C [facility]CREENING [facility] Test 00:00:00 [code = HEPATITIS C Medical Center SCREENING] Future Scheduled 1994-02-21 COVID-19 VACCINE (#1) [facility] Test 00:00:00 [code = COVID-[address] VACCINE (#1)] Future Scheduled 1994-02-21 COVID-19 VACCINE (#1) [facility] Test 00:00:00 [code = COVID-[address] VACCINE (#1)] Encounters Start End Encounter Admission Attending Care Care Encounter Source Date/Time Date/Time Type Type Clinicians Facility Department ID 2020-12-31 Emergency [facility] [id number] Univers 14:41:24 ity of [facility] 2020-12-12 Inpatient ER TONY BENSON Neurology [id number] [facility] 06:30:18 NATO 2021-12-14 2021-12-14 Outpatient R SANDIP [facility] [id number] Univers 09:30:00 10:25:49 PEBBLES quinonez [facility] 2021-12-14 2021-12-14 [facility] [id number] Univers 09:30:00 10:25:49 Visit Pebbles [place] [id number] i ty of [place] [id number] [id number] Co dical NAL [address] [facility] 2021-10-02 2021-10-02 Emergency [facility] [id number] Univers 14:30:00 17:41:00 DINH lazaruslily [facility] 2021-10-02 2021-10-02 Emergency [facility] [id number] Univers 14:30:00 17:41:00 Dinh [place] [id number] i ty of [id number] [id number] [facility] 084 [place] 2021-10-02 2021-10-02 Orders Doctor FORREST [id number] Univers 00:00:00 00:00:00 Only Unassigned, ROBERTO [id number] ity of [place] [facility] 4.2.7.2.686 [place] as [id number] [facility] 009 Branch 2020-12-28 2020-12-28 Hospital Radiology [place] [id number] Univers 14:15:58 23:59:00 Encounter Bryce [id number] ity [place] [id number] [facility] 807 Branch 2020-12-28 2020-12-28 Hospital Radiology [place] [id number] Univers 14:15:00 14:15:00 Encounter Bryce [id number] ity of [id number] [id number] [facility] 807 Branch 2020-12-28 2020-12-28 Outpatient R RADIOLOGY [facility] [id number] Univers 00:00:00 [facility]00[facility] 2019-05-21 2019-05-21 Emergency [facility] [id number] 05:29:16 07:07:00 Maggie [place] [id number] [place] 4.2.7.2.686 [place] [id number] 2019-05-21 2019-05-21 Emergency [facility] [id number] [facility] 05:29:16 07:07:00 Maggie [place] [id number] [facility] 4.2.7.2.686 [facility] [id number] [address] Results Test Description Test Time Test Comments Results Result Comments Source POCT TEST 2021-12-14 14:59:00 Test Item Value Reference Range Interpretation Comme nts POCT PREG (test code = 1605) Negative On board controls acceptable with C Line (test code = 3574) Yes POCT PREG LOT # (test code = 3575) POCT PREG TEST DATE (test code = 3576) [id number] 14:59:00 Test Item Value Reference Range Interpretation Comments POCT PREG (test code = 1605) Negative On board controls acceptable with C Yes Line (test code = 3574) POCT PREG LOT # (test code = 3575) POCT PREG TEST DATE (test code = 3576) [facility] [id number] 20:12:00 Test Item Value Reference Range Interpretation Comments POCT PREG (test code = 1605) negative On board controls acceptable with present C Line (test code = 3574) POCT PREG LOT # (test code = 3575) [id number] POCT PREG TEST DATE (test 01/03/2023 code = 3576) Lab Interpretation (test code = Normal 40307-5) [facility], TH[facility]ACIC, WO [id number] 14:16:00Unlisted Reason for Exam - Click Yes and Enter Reason Below->No [facility] : 1995 Sex: FFINAL [...] Titi Mcdaniels Verified Date/Time: 05/08/2020 14:16:40 -GLUCOSE [id number] 12:33:00 Test Item Value Reference Range Interpretation Comments POC-GLUCOSE METER 108 mg/dL 70-110 : TESTED A T [facility] 6720 (BEAKER) (test code [facility], = 1538) 17029: Pinking Machine Operator/Techni jonathon ID = [id number] for TSEG GAI, TSIGHEREDA SCREEN, [id number] 05:54:00 Test Item Value Reference Range Interpretation Comments TEST URINE (BEAKER) (test Negative code = 583) CBC W/PLT COUNT & AUTO [id number] 05:11:00 Test Item Value Reference Range Interpretation [...] (BEAKER) (test code = 2801) BASIC METABOLIC [id number] 05:06:00 Test Item Value Reference Range Interpretation [...] S NOT APPLICABLE FOR DIALYSIS PATIEN TS. Pinking Machine Operator ID - EDASIXR CHEST 1 [id number] 11:25:01Impression: No radiographic evidence for acute cardiopulmonary disease. RL: [id number] AFC: [id number] Indication: Cough, shortness of breath, wheezing Comparison: None Findings: Single AP view of the chest. The cardiopericardial silhouette iswithin normal limits. The lungs are clear bilaterally. The visualized bonythorax is intact. Rimb, Radiant Results Inft User - 05/21/2019 6:26 AM CDTIndication: Cough, shortness of breath, wheezingComparison: NoneFindings: Single AP view of the chest. The cardiopericardial silhouette iswithin normal limits. The lungs are clear bilaterally. The visualized bonythorax is intact.IMPRESSIONImpression:No rad iographic evidence for acute cardiopulmonary disease.RL: [id number]: [id number] signed by Chey Jacome MD, PhD at 05/21/2019 6:25 AM [facility]
[2021-12-22 16:38] LABS: Urine Blood 1+ (Negative); Urine Glucose Negative (Negative); Urine Protein Negative (Negative); Urine Specific Gravity 1.025 (1.005-1.030); Urine pH 6.5 (5.0-7.0)
[2021-12-22 16:46] LABS: Absolute Lymphocytes (CBC) 2.1 K/uL (0.7-4.9); Hematocrit 41.3 % (36.0-45.0); Lymphocytes % 29.2 % (15.3-44.8); MCV 84.1 fL (80-100); MPV 8.8 fL (7.6-11.3); RBC Red Blood Cell Count 4.92 M/uL (3.86-4.86)
[2021-12-22 17:49] LABS: Albumin 3.4 g/dL (3.4-5.0); Bilirubin Total 0.1 mg/dL (0.2-1.0); Potassium 3.8 mmol/L (3.5-5.1); Protein, Total 7.4 g/dL (6.4-8.2)
[2021-12-22] MEDS ORDERED: MORPHINE 4 MG/ML SYR ONE ×2 (17:56→19:25)
[2021-12-22] MEDS ORDERED: NA CHLORIDE 0.9% 1,000 ML ONE (17:56)
[2021-12-22] MEDS ORDERED: ONDANSETRON 4 MG/2 ML VIAL ONE ×2 (17:56→19:25)
--- NOTE | 2021-12-22 18:31 | RAD REPORT ---
EXAM DESCRIPTION: CTAbdomen Pelvis W Contrast - 12/22/2021 6:21 pm CLINICAL HISTORY: Abdominal pain. lower abdominal pain COMPARISON: Abdomen Pelvis W Contrast dated 11/10/2021; Abdomen Pelvis W Contrast dated 07/07/2016 TECHNIQUE: Biphasic CT imaging of the abdomen and pelvis was performed with 100 ml non-ionic IV cont rast. All CT scans are performed using dose optimization technique as appropriate and may include automated exposure control or mA/KV adjustment according to patient size. FINDINGS: The lung bases are clear. The liver, spleen, pancreas, adrenal glands and kidneys are within normal limits. No bowel obstruction, free air, free fluid or abscess. Moderate fat containing umbilical hernia. The appendix is normal. No evidence of significant lymphadenopathy. No suspicious bony findings. IMPRESSION: No acute intra-abdominal or pelvic finding. Moderate fat containing umbilical hernia.
--- NOTE | 2021-12-22 19:50 | ER ---
Nurse's Notes [facility] Name: Heather Paul Age: 26 yrs Sex: Female : 1995 Arrival Date: 12/22/2021 Time: 15:21 Bed 14 Private MD: Claudette Espinoza Diagnosis: Abdominal pain, unspecified Presentation: 12/22 15:48 Chief complaint: Patient states: Lower abdominal pain since last night. Pt c/o abd pain ld1 and nausea. Coronavirus screen: At this time, the client does not indicate any symptoms associated with coronavirus-19. Ebola Screen: No symptoms or risks identified at this time. Initial Sepsis Screen: Does the patient meet any 2 criteria? No. Patient's initial sepsis screen is negative. Does the patient have a suspected source of infection? No. Patient's initial sepsis screen is negative. Risk Assessment: Do you want to hurt yourself or someone else? Patient reports no desire to harm self or others. Onset of symptoms was December 22, 2021. 15:48 Method Of Arrival: Ambulatory ld1 15:48 Acuity: ALISA 3 ld1 Triage Assessment: 15:50 General: Appears in no apparent distress. comfortable, Behavior is calm, cooperative, ld1 appropriate for age. Pain: Complains of pain in right lower quadrant and left lower quadrant Pain does not radiate. Pain currently is 8 out of 10 on a pain scale. Quality of pain is described as sharp, shooting, throbbing. EENT: No signs and/or symptoms were reported regarding the EENT system. Neuro: Level of Consciousness is awake, alert, obeys commands, Oriented to person, place, time, situation, Appropriate for age. Cardiovascular: Capillary refill < 3 seconds Patient's skin is warm and dry. Respiratory: Airway is patent Respiratory effort is even, unlabored. GI: Abdomen is round non-distended, Reports lower abdominal pain, nausea. : No signs and/or symptoms were reported regarding the genitourinary system. Derm: No signs and/or symptoms reported regarding the dermatologic system. Musculoskeletal: No signs and/or symptoms reported regarding the musculoskeletal system. 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 - Social history:: Smoking status: Patient denies any tobacco usage or history of. Patient/guardian denies using alcohol. Screenin:04 Abuse screen: Denies threats or abuse. Denies injuries from another. Nutritional db screening: No deficits noted. Tuberculosis screening: Tuberculosis screening: No symptoms or risk factors identified. Never had TB. Fall Risk None identified. No fall in past 12 months (0 pts). No secondary diagnosis (0 pts). IV access (20 points). Ambulatory Aid- None/Bed Rest/Nurse Assist (0 pts). Gait- Normal/Bed Rest/Wheelchair (0 pts) Mental Status- Oriented to own ability (0 pts). Total Vu Fall Scale indicates No Risk (0-24 pts). Assessment: 17:20 Reassessment: Patient appears in no apparent distress at this time. Patient is alert, db oriented x 3, equal unlabored respirations, skin warm/dry/pink. Reassessment: patient is on phone. left lower abdominal pain , cramping with nausea. General: Appears in no apparent distress. comfortable, Behavior is calm, cooperative, appropriate for age, quiet. Pain: Complains of pain in abdomen and left lower quadrant. Neuro: No deficits noted. Level of Consciousness is awake, alert, obeys commands, Oriented to person, place, time, situation, Appropriate for age Speech is normal, Facial symmetry appears normal. Cardiovascular: No deficits noted. Respiratory: No deficits noted. GI: Bowel sounds present X 4 quads. Abd is soft Abd is non tender in right upper quadrant and right lower quadrant. : No deficits noted. No signs and/or symptoms were reported regarding the genitourinary system. EENT: No deficits noted. No signs and/or symptoms were reported regarding the EENT system. Derm: No deficits noted. No signs and/or symptoms reported regarding the dermatologic system. 18:48 Reassessment: states has increased pain in left lower abdomen. notified provider. Pain: db Pain currently is 10 out of 10 on a pain scale. Quality of pain is described as crampy. 19:44 General: Appears uncomfortable, Behavior is calm, cooperative. Pain: Complains of pain ha1 in left lower quadrant Pain does not radiate. Pain currently is 8 out of 10 on a pain scale. Pain began 4 hours ago. Alleviated by medications. Neuro: Level of Consciousness is awake, alert, obeys commands, Oriented to person, place, time, situation, Speech is normal. Cardiovascular: Patient's skin is warm and dry. Respiratory: Airway is patent Trachea midline Respiratory effort is even, unlabored, Respiratory pattern is regular, symmetrical. GI: Bowel sounds present X 4 quads. Abd is soft and non tender Reports left lower quadrant abdominal pain. Musculoskeletal: Circulation, motion, and sensation intact. Capillary refill Range of motion: intact in all extremities. 20:12 Reassessment: Patient and/or family updated on plan of care and expected duration. Pain ha1 level reassessed. Patient is alert, oriented x 3, equal unlabored respirations, skin warm/dry/pink. Vital Signs: 15:48 BP 116 / 56; Pulse 70; Resp 18; Temp 97.7(O); Pulse Ox 100% on R/A; Weight 94.8 kg; ld1 Height 5 ft. 7 in. (170.18 cm); Pain 8/10; 18:00 BP 105 / 77; Pulse 81; Resp 16; Pulse Ox 100% ; db 19:43 BP 107 / 75; Pulse 75; Resp 16 S; Pulse Ox 100% on R/A; ha1 20:13 BP 103 / 67; Pulse 69; Resp 17 S; Pulse Ox 100% on R/A; ha1 15:48 Body Mass Index 32.73 (94.80 kg, 170.18 cm) ld1 ED Course: 15:21 Patient arrived in ED. am2 15:21 Claudette Espinoza is Private Physician. am2 15:49 Triage completed. ld1 15:50 Arm band placed on left wrist. ld1 16:00 Pavel Rodríguez NP is PHCP. pm1 16:00 Thompson Rudd MD is Attending Physician. pm1 16:34 Maddison Garcia, CHRISTEN is Primary Nurse. db 17:20 Inserted saline lock: 20 gauge in right antecubital area, using aseptic technique. db Blood collected. 18:23 CT Abd/Pelvis - IV Contrast Only In Process Unspecified. EDMS 19:04 Patient has correct armband on for positive identification. Bed in low position. Side db rails up X 1. Report given to CHRISTEN Mcdowell. 19:45 Transvaginal Study (probe) In Process Unspecified. EDMS 20:41 No provider procedures requiring assistance completed. IV discontinued, intact, ha1 bleeding controlled, No redness/swelling at site. Pressure dressing applied. Administered Medications: 17:50 Drug: Zofran (Ondansetron) 4 mg Route: IVP; Site: left antecubital; db 17:50 Drug: morphine 4 mg Route: IVP; Infused Over: 4 mins; Site: left antecubital; db 17:50 Drug: NS 0.9% 1000 ml Route: IV; Rate: 1000 ml; Site: left antecubital; db 19:43 Drug: morphine 4 mg {Note: RR 16.} Route: IVP; Infused Over: 4 mins; Site: right ha1 antecubital; 20:40 Follow up: Response: No adverse reaction; Pain is decreased; RASS: Alert and Calm (0) ha1 19:43 Drug: Zofran (Ondansetron) 4 mg Route: IVP; Site: right antecubital; ha1 20:41 Follow up: Response: No adverse reaction ha1 Medication: 20:41 VIS not applicable for this client. ha1 Outcome: 19:49 Discharge ordered by . pm1 20:41 Discharged to home ambulatory. ha1 20:41 Condition: stable 20:41 Discharge instructions given to patient, Instructed on discharge instructions, follow up and referral plans. medication usage, Demonstrated understanding of instructions, follow-up care, medications, Prescriptions given X 3. 20:53 Patient left the ED. ha1 Signatures: Dispatcher [employer] EDMS Pavel Rodríguez, MYLES RIVETER [employer] pm1 Kaia Santos am2 Linda Manzo RN RN ld1 July Joaquin RN RN ha1 Maddison Garcia RN RN db
--- NOTE | 2021-12-22 19:50 | EDPHYS ---
Physician Documentation [facility] Name: Heather Paul Age: 26 yrs Sex: Female : 1995 Arrival Date: 12/22/2021 Time: 15:21 Bed 14 Private MD: Claudette Espinoza ED Physician Thompson Rudd HPI: 12/22 16:49 This 26 yrs old Black Female presents to ER via Ambulatory with complaints of Abdominal pm1 Pain. 16:49 The patient presents with abdominal pain in the left lower quadrant. Onset: The pm1 symptoms/episode began/occurred yesterday. The symptoms do not radiate. Associated signs and symptoms: none. Pertinent negatives: nausea, vomiting, and diarrhea, dysuria, fever, vaginal discharge. The symptoms are described as sharp, pulling sensation. Modifying factors: The symptoms are alleviated by positioning - left side lying. the symptoms are aggravated by nothing. Severity of pain: in the emergency department the pain is unchanged. The patient has not experienced similar symptoms in the past. The patient has not recently seen a physician. 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 - Social history:: Smoking status: Patient denies any tobacco usage or history of. Patient/guardian denies using alcohol. ROS: 16:49 Constitutional: Negative for fever, chills, and weight loss, Cardiovascular: Negative pm1 for chest pain, palpitations, and edema, Respiratory: Negative for shortness of breath, cough, wheezing, and pleuritic chest pain. 16:49 Back: Negative for injury and pain, : Negative for injury, bleeding, discharge, and swelling, MS/Extremity: Negative for injury and deformity, Skin: Negative for injury, rash, and discoloration, Neuro: Negative for headache, weakness, numbness, tingling, and seizure. 16:49 Abdomen/GI: Positive for abdominal pain, of the left lower quadrant, Negative for nausea, vomiting, and diarrhea. 16:49 All other systems are negative. Exam: 16:49 Constitutional: This is a well developed, well nourished patient who is awake, alert, pm1 and in no acute distress. Head/Face: Normocephalic, atraumatic. 16:49 Back: No spinal tenderness. No costovertebral tenderness. Full range of motion. Skin: Warm, dry with normal turgor. Normal color with no rashes, no lesions, and no evidence of cellulitis. MS/ Extremity: Pulses equal, no cyanosis. Neurovascular intact. Full, normal range of motion. 16:49 Eyes: Exam is negative for acute changes, Periorbital structures: appear normal, Pupils: no acute changes, Extraocular movements: no acute changes. 16:49 ENT: Mouth: no acute changes, Lips: normal, moist, Oral mucosa: normal, pink and intact, moist. 16:49 Cardiovascular: Exam negative for acute changes, Rate: normal, Rhythm: regular, Pulses: no pulse deficits are appreciated. 16:49 Respiratory: Exam negative for acute changes, respiratory distress, shortness of breath. 16:49 Abdomen/GI: Inspection: abdomen appears normal, Palpation: soft, in all quadrants, mild abdominal tenderness, in the left lower quadrant. 16:49 Neuro: Exam negative for acute changes, Orientation: is normal, Mentation: is normal, Motor: moves all fours. Vital Signs: 15:48 BP 116 / 56; Pulse 70; Resp 18; Temp 97.7(O); Pulse Ox 100% on R/A; Weight 94.8 kg; ld1 Height 5 ft. 7 in. (170.18 cm); Pain 8/10; 18:00 BP 105 / 77; Pulse 81; Resp 16; Pulse Ox 100% ; db 19:43 BP 107 / 75; Pulse 75; Resp 16 S; Pulse Ox 100% on R/A; ha1 20:13 BP 103 / 67; Pulse 69; Resp 17 S; Pulse Ox 100% on R/A; ha1 15:48 Body Mass Index 32.73 (94.80 kg, 170.18 cm) ld1 MDM: 16:17 Patient medically screened. zak 18:34 Data reviewed: vital signs. Data interpreted: Pulse oximetry: on room air is 100 %. pm1 Interpretation: normal. 19:47 Counseling: I had a detailed discussion with the patient and/or guardian regarding: the pm1 historical points, exam findings, and any diagnostic results supporting the discharge/admit diagnosis, lab results, radiology results, the need for outpatient follow up, to return to the emergency department if symptoms worsen or persist or if there are any questions or concerns that arise at home. 12/22 15:45 Order name: CBC with Diff; Complete Time: 17:29 ld1 12/22 15:45 Order name: CMP; Complete Time: 18:31 ld1 12/22 15:45 Order name: Lipase; Complete Time: 18:31 ld1 12/22 16:35 Order name: CT Abd/Pelvis - IV Contrast Only; Complete Time: 18:34 pm1 12/22 16:38 Order name: Urine Dipstick-Ancillary; Complete Time: 17:29 EDMS 12/22 16:42 Order name: Urine --Ancillary (enter results) 12/22 15:45 Order name: IV Saline Lock; Complete Time: 18:12 ld1 12/22 15:45 Order name: Labs collected and sent; Complete Time: 18:12 ld1 12/22 18:51 Order name: Transvaginal Study (probe); Complete Time: 20:01 pm1 12/22 15:45 Order name: Urine Dipstick-Ancillary (obtain specimen); Complete Time: 18:13 ld1 12/22 16:36 Order name: Urine Test (obtain specimen); Complete Time: 18:12 pm1 12/22 16:47 Order name: Labs - recollect needed: recollect green top; Complete Time: 18:12 bd 12/22 17:07 Order name: Labs - recollect needed: recollect green top again; Complete Time: 18:12 bd Administered Medications: 17:50 Drug: Zofran (Ondansetron) 4 mg Route: IVP; Site: left antecubital; db 17:50 Drug: morphine 4 mg Route: IVP; Infused Over: 4 mins; Site: left antecubital; db 17:50 Drug: NS 0.9% 1000 ml Route: IV; Rate: 1000 ml; Site: left antecubital; db 19:43 Drug: morphine 4 mg {Note: RR 16.} Route: IVP; Infused Over: 4 mins; Site: right ha1 antecubital; 20:40 Follow up: Response: No adverse reaction; Pain is decreased; RASS: Alert and Calm (0) [facility] 19:43 Drug: Zofran (Ondansetron) 4 mg Route: IVP; Site: right antecubital; ha1 20:41 Follow up: Response: No adverse reaction ha1 Disposition Summary: 12/22/21 19:49 Discharge Ordered Location: Home pm1 Problem: new pm1 Symptoms: have improved pm1 Condition: Stable pm1 Diagnosis - Abdominal pain, unspecified pm1 Followup: pm1 - With: Emergency Department - When: As needed - Reason: Worsening of condition Followup: pm1 - With: Private Physician - When: 2 - 3 days - Reason: Recheck today's complaints, Continuance of care, Re-evaluation by your physician Discharge Instructions: - Discharge Summary Sheet pm1 - Abdominal Pain, Adult pm1 Forms: - Medication Reconciliation Form pm1 - Thank You Letter pm1 - Antibiotic Education pm1 - Prescription Opioid Use pm1 - Work release form ha1 Prescriptions: - dicyclomine 20 mg Oral Tablet - take 1 tablet by ORAL route every 6 hours As needed; 20 tablet; Refills: 0, pm1 Product Selection Permitted - ondansetron 4 mg Oral tablet,disintegrating - take 1 tablet by ORAL route every 8 hours As needed; 10 tablet; Refills: 0, pm1 Product Selection Permitted - Tylenol-Codeine #3 300 mg-30 mg Oral - take 2 tablet by ORAL route every 6 hours As needed; 20 tablet; Refills: 0, pm1 Product Selection Permitted Signatures: Dispatcher [employer] Noemi Barbosa Corey, MD MD cha Marinas, Patrick, MYLES PROFILE TRIMMER pm1 Linda Manzo RN RN 1 July Joaquin RN RN 1 Maddison Garcia RN RN db
--- NOTE | 2021-12-22 19:55 | RAD REPORT ---
EXAM DESCRIPTION: US - Transvaginal Study Probe - 12/22/2021 7:43 pm CLINICAL HISTORY: left groin pain, r/o torsion Pelvic pain. COMPARISON: Transvaginal Study Probe dated 11/10/2021 FINDINGS: The uterus is normal in size, shape and echotexture. The uterus measures 8.5 x 6.0 x 4.2 c m. The endometrial stripe measures 2 mm, normal. Both ovaries are normal in size, shape and echotexture. The right ovary measures 4.8 x 2.3 x 1.7 cm. The left ovary measures 2.1 x 2.2 x 1.7 cm. Prominent right ovarian follicle measuring 3.5 cm. No a dnexal masses. Normal Doppler blood flow was demonstrated to both ovaries. No significant pelvic ascites. IMPRESSION: Unremarkable study.
[2021-12-22 21:12] VITALS: TEMP 97.7; O2SAT 100
[2021-12-22 21:38] VITALS: BP 107/75
[2021-12-22 22:09] LABS: Urine Specific Gravity/Preg 1.025 (1.005-1.030)
== END 2021-12-22 20:53 | disposition home or self-care (01) ==
LOC: ER 15:19
DX: R10.32 Left lower quadrant pain (principal)
CPT/HCPCS: 85025; 36415; 81025; 81003; 83690; 80053; 74177; 76830; 99284; Q9967; J7030; J2405 ×2

== ENCOUNTER 2022-02-09 06:14 | Emergency (ER) | payer OTHER ==
--- OUTSIDE RECORDS SUMMARY | 2022-02-09 06:18 | XMS REPORT | Continuity of Care Document ---
:1995 Author Organization [facility] t Address [address] [place] [address] Care Team Providers Name Role Phone Claudette Espinoza Primary Care Physician NATO BENSON Attending Clinician Unavailable PEBBLES MEHTA Attending Clinician Unavailable Pebbles Mehta PA-C Attending Clinician DINH VELÁSQUEZ Attending Clinician Unavailable Dinh Velásquez MD Attending Clinician Doctor Unassigned, [employer] Attending Clinician Unavailable Radiology Attending Clinician Unavailable RADIOLOGY Attending Clinician Unavailable Maggie Silveira MD Attending Clinician NATO BENSON Admitting Clinician Unavailable DINH VELÁSQUEZ Admitting Clinician Unavailable Payers Payer Name Policy Type Policy Number Effective Date Expiration Date Eric LEONG [id number] 2017 HEALTH 00:00:00 MEDICAID [facility] STAR [id number] Problems Condition Condition Condition Status Onset Resolution Last Treating Co mments Source Name Details Category Date Date Treatment Clinician Date Obesity Obesity Disease Active 2021-03 Univers (BMI (BMI 0-11 ity of 30-39.9) 30-39.9) 00:00: [place] 00 [facility] Low back Low back Disease Active [facility] [address] Allergies, Adverse Reactions, Alerts Allergy Allergy Status Severity Reaction(s) Onset Inactive Treating Comm ents Source Name Type Date Date Clinician NO KNOWN Drug Active [facility] Allergy Active [facility] ALLERGIE [facility] Social History Social Habit Start Date Stop Date Quantity Comments Source Exposure to 2021-12-04 2021-12-14 Not sure [facility] SARS-CoV-2 (event) 00:00:00 09:30:00 [facility] [place] Alcohol intake 2021-12-14 2021-12-14 0 /d [facility] 00:00:00 00:00:00 [facility] Tobacco use and 2020-05-07 2020-05-07 Never used DAO [facility] More[facility]ita kes exposure 00:00:00 00:00:00 [facility] Sex Assigned At [address] [facility] kes 00:00:00 00:00:00 [facility] Smoking Status Start Date Stop Date Source Never smoked tobacco [facility] Medications Ordered Filled Start Stop Current Ordering Indication Dosage Frequency Signature Comments Components Source Medication Medication Date Date Medication? Clinician (SIG) Name Name PNV 67-iron 2021-03 Yes [id number] 1{capsu Take 1 Univers ps-folate 0-11 le} capsule by ity of no.1-dha 00:00: mouth [place] (VITAFOL 00 daily. Medical ULTRA) 29 Branch mg iron- 1 mg-200 mg Cap PNV 67-iron 2021-03 Yes [id number] 1{capsu Take 1 Univers ps-folate 0-11 le} capsule by ity of no.1-dha 00:00: mouth [place] (VITAFOL 00 daily. Medical ULTRA) 29 Branch mg iron- 1 mg-200 mg Cap naproxen 2021- No [id number] 500mg Take 1 U nivers 500 mg 7-30 08-10 tablet by ity of tablet 00:00: 04:59 mouth in [place] 00 :00 the Medical morning Branch and 1 tablet in the evening. Take with meals. Do all this for 10 days. fLUoxetine 2021- No 20mg QD Take [address] [facility] [address] (PROzac) 20 3- 03-09 capsule [facility] MG capsule 00:00: 23:59 (20 mg Medi abimael 00 :00 total) by Center mouth daily. fLUoxetine 2021- No 20mg QD Take [address] [facility] (PROzac) 20 3- 03-09 capsule Luke s MG capsule 00:00: 23:59 (20 mg Medi abimael 00 :00 total) by Center mouth daily. fLUoxetine 2021- No 20mg QD Take [address] [facility] (PROzac) 20 -11 06-09 capsule Luke s MG capsule 00:00: 23:59 [...] ter on inhaler (two) times daily. codeine-gua 0 2020- No 10mL 10 mL, Uni vers ifenesin 3-17 -17 Oral, ity of (ROBITUSSIN 12:00[place] 12[place]01 [place] 10-100 00 :00 dose, Tue Medi abimael mg/5 mL 05/21/19 at Branch solution 10 0700, ELVIS mL benzonatate 2019-0 Yes [id number] 200mg Take 1 Univers 200 mg 3-17 capsule by ity of capsule 00:00: mouth 3 [place] 00 (three) Medical times Branch daily as needed for Cough. albuterol 2019-0 Yes [id number] 2.5mg Inhale 3 Univers 2.5 mg /3 3-17 mL every 4 ity of mL (0.083 00:00: (four) [place] %) 00 hours. May Medical nebulizer also Branch solution nebulize one extra every 6 hours. albuterol 2020-0 Yes [id number] 2{puff} Inhale 2 Univers 90 3-17 Puffs ity of mcg/actuati 00:00: every 4 [place] as on inhaler 00 (four) Medical hours as Branch needed for Wheezing or Shortness of Breath. benzonatate 2020-0 Yes [id number] 200mg Take 1 Univers 200 mg 3-17 capsule by ity of capsule 00:00: mouth 3 [place] 00 (three) Medical times Branch daily as needed for Cough. ibuprofen 2020-0 Yes [id number] 800mg Take 1 U nivers 800 mg 3-17 tablet by ity of tablet 00:00: mouth [place] 00 every 8 Medical (eight) Branch hours as needed for Pain (scale 4-6). ibuprofen 2020-0 Yes [id number] 800mg Take 1 U nivers 800 mg 3-17 tablet by ity of tablet 00:00: mouth [place] 00 every 8 Medical (eight) Branch hours as needed for Pain (scale 4-6). albuterol 2020-0 Yes [id number] 2.5mg Inhale 3 Univers 2.5 mg /3 3-17 mL every 4 ity of mL (0.083 00:00: (four) [place] %) 00 hours. May Medical nebulizer also Branch solution nebulize one extra every 6 hours. albuterol 2020-0 Yes [id number] 2{puff} Inhale 2 Univers 90 3-17 Puffs ity of mcg/actuati 00:00: every 4 [place] as on inhaler 00 (four) Medical hours as Branch needed for Wheezing or Shortness of Breath. benzonatate 2020-0 Yes [id number] 200mg Take 1 Univers 200 mg 3-17 capsule by ity of capsule 00:00: mouth 3 [place] 00 (three) Medical times Branch daily as needed for Cough. ibuprofen 2020-0 Yes [id number] 800mg Take 1 U nivers 800 mg 3-17 tablet by ity of tablet 00:00: mouth [place] 00 every 8 Medical (eight) Branch hours as needed for Pain (scale 4-6). albuterol 2020-0 Yes [id number] 2.5mg Inhale 3 Univers 2.5 mg /3 3-17 mL every 4 ity of mL (0.083 00:00: (four) [place] %) 00 hours. May Medical nebulizer also Branch solution nebulize one extra every 6 hours. albuterol 2020-0 Yes [id number] 2{puff} Inhale 2 Univers 90 3-17 Puffs ity of mcg/actuati 00:00: every 4 [place] as on inhaler 00 (four) Medical hours as Branch needed for Wheezing or Shortness of Breath. benzonatate 2020-0 Yes [id number] 200mg Take 1 Univers 200 mg 3-17 capsule by ity of capsule 00:00: mouth 3 [place] 00 (three) Medical times Branch daily as needed for Cough. ibuprofen 2020-0 Yes [id number] 800mg Take 1 U nivers 800 mg 3-17 tablet by ity of tablet 00:00: mouth [place] 00 every 8 Medical (eight) Branch hours as needed for Pain (scale 4-6). albuterol 2020-0 Yes [id number] 2.5mg Inhale 3 Univers 2.5 mg /3 3-17 mL every 4 ity of mL (0.083 00:00: (four) [place] %) 00 hours. May Medical nebulizer also Branch solution nebulize one extra every 6 hours. albuterol 2020-0 Yes [id number] 2{puff} Inhale 2 Univers 90 3-17 Puffs ity of mcg/actuati 00:00: every 4 [place] as on inhaler 00 (four) Medical hours as Branch needed for Wheezing or Shortness of Breath. benzonatate 2020-0 Yes [id number] 200mg Take 1 Univers 200 mg 3-17 capsule by ity of capsule 00:00: mouth 3 [place] 00 (three) Medical times Branch daily as needed for Cough. ibuprofen 2020-0 Yes [id number] 800mg Take 1 U nivers 800 mg 3-17 tablet by ity of tablet 00:00: mouth [place] 00 every 8 Medical (eight) Branch hours as needed for Pain (scale 4-6). albuterol 2020-0 Yes [id number] 2.5mg Inhale 3 Univers 2.5 mg /3 3-17 mL every 4 ity of mL (0.083 00:00: (four) [place] %) 00 hours. May Medical nebulizer also Branch solution nebulize one extra every 6 hours. albuterol 2020-0 Yes [id number] 2{puff} Inhale 2 Univers 90 3-17 Puffs ity of mcg/actuati 00:00: every 4 [place] as on inhaler 00 (four) Medical hours as Branch needed for Wheezing or Shortness of Breath. benzonatate 2020-0 Yes [id number] 200mg Take 1 Univers 200 mg 3-17 capsule by ity of capsule 00:00: mouth 3 [place] 00 (three) Medical times Branch daily as needed for Cough. ibuprofen 2020-0 Yes [id number] 800mg Take 1 U nivers 800 mg 3-17 tablet by ity of tablet 00:00: mouth [place] 00 every 8 Medical (eight) Branch hours as needed for Pain (scale 4-6). albuterol 2020-0 Yes [id number] 2.5mg Inhale 3 Univers 2.5 mg /3 3-17 mL every 4 ity of mL (0.083 00:00: (four) [place] %) 00 hours. May Medical nebulizer also Branch solution nebulize one extra every 6 hours. albuterol 2020-0 Yes [id number] 2.5mg Inhale 3 Univers 2.5 mg /3 3-17 mL every 4 ity of mL (0.083 00:00: (four) [place] %) 00 hours. May Medical nebulizer also Branch solution nebulize one extra every 6 hours. albuterol 2020-0 Yes [id number] 2{puff} Inhale 2 Univers 90 3-17 Puffs ity of mcg/actuati 00:00: every 4 [place] as on inhaler 00 (four) Medical hours as Branch needed for Wheezing or Shortness of Breath. benzonatate 2020-0 Yes [id number] 200mg Take 1 Univers 200 mg 3-17 capsule by ity of capsule 00:00: mouth 3 [place] 00 (three) Medical times Branch daily as needed for Cough. ibuprofen 2020-0 Yes [id number] 800mg Take 1 U nivers 800 mg 3-17 tablet by ity of tablet 00:00: mouth [place] 00 every 8 Medical (eight) Branch hours as needed for Pain (scale 4-6). albuterol 2020-0 Yes [id number] 2{puff} Inhale 2 Univers 90 3-17 Puffs [...] 2021-12-14 14:43:00 106 mm[Hg] Univer sity of pressure [place] [facility] Diastolic blood 2021-12-14 14:43:00 72 mm[Hg] Unive rsity of pressure [place] [facility] Heart rate 2021-12-14 14:43:00 73 /min Universi ty of [place] [facility] [place] Body temperature 2021-12-14 14:43:00 36.89 Jackelyn Univ ersity of [facility] Branch Respiratory rate 2021-12-14 14:43:00 18 /min Univ ersity of [facility] Body height 2021-12-14 14:43:00 170.2 cm Universi ty of [place] [facility] Body weight 2021-12-14 14:43:00 94.802 kg Universi ty of [place] [facility] BMI 2021-12-14 14:43:00 32.73 kg/m2 Universi ty of [facility] Systolic blood 2021-10-02 19:29:00 121 mm[Hg] Univer sity of pressure [facility] Diastolic blood 2021-10-02 19:29:00 77 mm[Hg] Unive rsity of [facility] Heart rate 2021-10-02 19:29:00 82 /min Universi ty of [facility] Body temperature 2021-10-02 19:29:00 37.06 Jackelyn Univ ersity of [facility] Respiratory rate 2021-10-02 19:29:00 15 /min Univ ersity of [facility] Body height 2021-10-02 19:29:00 170.2 cm Universi ty of [place] [facility] [place] Body weight 2021-10-02 19:29:00 90.719 kg Universi ty of [place] [facility] [place] BMI 2021-10-02 19:29:00 31.32 kg/m2 Universi ty of [facility] Oxygen saturation in 2021-10-02 19:29:00 97 /min [facility] Arterial blood by [facility] Pulse oximetry Branch HEIGHT 2020-05-07 19:57:00 170.2 cm WEIGHT 2020-05-07 19:57:00 85.28 kg Systolic blood 2019-05-21 10:27:00 113 mm[Hg] Univer sity of pressure [facility] Diastolic blood 2019-05-21 10:27:00 79 mm[Hg] Unive rsity of pressure [facility] Heart rate 2019-05-21 10:27:00 94 /min Universi ty of [facility] Body temperature 2019-05-21 10:27:[address] [facility] [place] [place] ersity of [facility] Respiratory rate 2019-05-21 10:27:00 16 /min Univ ersity of [facility] Body height 2019-05-21 10:27:00 170.2 cm Universi ty of [place] [facility] [place] Body weight 2019-05-21 10:27:00 80.74 kg Universi ty of [facility] BMI 2019-05-21 10:27:00 27.88 kg/m2 Universi ty of [facility] Oxygen saturation in 2019-05-21 10:27:00 99 /min University of Arterial blood by [facility] Pulse oximetry Branch Systolic blood 2019-05-21 10:27:00 113 mm[Hg] Univer sity of pressure [facility] Diastolic blood 2019-05-21 10:27:00 79 mm[Hg] Unive rsity of pressure [facility] Heart rate 2019-05-21 10:27:00 94 /min Universi ty of [facility] Body temperature 2019-05-21 10:27:[address] [facility] [place] [place] ersity of [facility] Respiratory rate 2019-05-21 10:27:00 16 /min [facility] [place] [place] ersity of [facility] Body height 2019-05-21 10:27:00 170.2 cm Universi ty of [facility] Body weight 2019-05-21 10:27:00 80.74 kg Universi ty of [facility] BMI 2019-05-21 10:27:00 27.88 kg/m2 Universi ty of [facility] Oxygen saturation in 2019-05-21 10:27:00 99 /min University of Arterial blood by [facility] Pulse oximetry Branch Procedures Procedure Date / Time Performing Clinician Source Performed POCT TEST 2021-12-14 14:59:00 Pebbles Mehta [facility] US TRANSVAGINAL 2021-10-02 21:52:00 Dihn Velásquez [facility] POCT TEST 2021-10-02 20:12:00 Dinh Velásquez [facility] URINALYSIS 2021-10-02 20:01:00 Dinh Velásquez [facility] CONSENT/REFUSAL FOR 2021-10-02 19:14:43 Doctor Unassigned, No Un [facility] DIAGNOSIS AND TREATMENT Name Medical Branch XR PELVIS 3+ VW 2020-12-28 19:45:05 Requisition, Paper Universit [facility] NOTICE OF PRIVACY 2020-12-28 19:16:51 Doctor Unassigned, No [facility] Name Medical Branch CONSENT/REFUSAL FOR 2020-12-28 19:16:39 Doctor Unassigned, No Un iversity [facility] DIAGNOSIS AND TREATMENT Name Medical Branch ASSIGNMENT OF BENEFITS 2020-12-28 19:16:26 Doctor Unassigned, No [facility] Name Medical Branch XR CHEST 1 VW 2019-05-21 11:22:30 Maggie Silveira [facility] NOTICE OF PRIVACY 2019-05-21 10:19:34 Doctor Unassigned, No [facility] Medical Branch CONSENT/REFUSAL FOR 2019-05-21 10:19:10 Doctor Unassigned, No [facility] Plan of Care Planned Activity Planned Date Details Comments Source Future Scheduled 2021-11-[address] [facility] Test 00:00:00 (#1) [code = Medical Center INFLUENZA VACCINE (#1)] Future Scheduled 2021-11-[address] [facility] Test 00:00:00 (#1) [code = Medical Center INFLUENZA VACCINE (#1)] Future Scheduled 2021-11-04 INFLUENZA [...] Medica l Center cervix (procedure) [code = 867333315] Future Scheduled [address] [facility] Test 00:00:00 malignant neoplasm of Medica l Center cervix (procedure) [code = 554464387] Future Scheduled [address] [facility] Test 00:00:00 malignant neoplasm of Medica l Center cervix (procedure) [code = 807892388] Future Scheduled 2012 DTAP/TDAP/TD VACCINES CH I [...] HEPATITIS C Medical Center SCREENING] Future Scheduled [address] [facility] Test 00:00:00 Counseling and Medical Cente r Screening (12+) [code = Tobacco Cessation Counseling and Screening (12+)] Future Scheduled 1994-02-21 COVID-19 VACCINE (#1) CH [...] Type Clinicians Facility Department ID 2020-12-31 Emergency [facility] [id number] Univers 14:41:24 ity [facility] 2020-12-12 Inpatient ER KELLEY, [facility] Neurology [id number] SLE 06:30:18 NATO 2021-12-14 2021-12-14 Outpatient R SANDIP [facility] [id number] Univers 09:30:00 10:25:49 PEBBLES ity [facility] 2021-12-14 2021-12-14 [facility] [id number] Univers 09:30:00 10:25:49 Visit Pebbles [place] [id number] i ty of [place] 4.2.[place]2.686 [place] PROFESS[place] [id number] Vt dical [address] 2021-10-02 2021-10-02 Emergency [facility] ERT [id number] Univers 14:30:00 17:41:00 DINH lazarusy [facility] 2021-10-02 2021-10-02 Emergency [facility] [id number] Univers 14:30:00 17:41:00 Dinh [place] [id number] i ty of [place] 4.2.7.2.686 [facility] [id number] [facility] [address] [place] 2021-10-02 2021-10-02 Orders Doctor FORREST [id number] Univers 00:00:00 00:00:00 Only Unassigned, ROBERTO [id number] ity of [employer] [facility] 4.2.7.2.686 [place] as [id number] [facility] 009 Branch 2020-12-28 2020-12-28 [facility] Radiology [facility] [id number] Univers 14:15:58 23:59:00 Encounter [place] [id number] ity of [place] 4.2.7.2.686 [facility] [id number] [facility] [address] [place] 2020-12-28 2020-12-28 [facility] Radiology [facility] [id number] Univers 14:15:00 14:15:00 Encounter [place] [id number] ity of [place] 4.2.7.2.686 [facility] [id number] [facility] [address] [place] 2020-12-28 2020-12-28 Outpatient R RADIOLOGY [facility] [id number] Univers 00:00:00 [facility]:00:[facility] 2019-05-21 2019-05-21 Emergency [facility] [id number] [facility] 05:29:16 07:07:00 Maggie [place] [id number] [facility] [id number] [facility] [id number] [facility] [address] [place] 2019-05-21 2019-05-21 Emergency [facility] [id number] 05:29:16 07:07:00 Maggie [place] [id number] [place] 4.2.7.2.686 [place] [id number] [id number] Results Test Description Test Time Test Comments Results Result Comments Source POCT TEST 2021-12-14 14:59:00 Test Item Value Reference Range Interpretation Comme nts POCT PREG (test code = 1605) Negative On board controls acceptable with C Line (test code = 3574) Yes POCT PREG LOT # (test code = 3575) POCT PREG TEST DATE (test code = 3576) [facility] [id number] 14:59:00 Test Item Value Reference Range Interpretation Comments POCT PREG (test code = 1605) Negative On board controls acceptable with C Yes Line (test code = 3574) POCT PREG LOT # (test code = 3575) POCT PREG TEST DATE (test code = 3576) [facility] [id number] 20:12:00 Test Item Value Reference Range Interpretation Comments POCT PREG (test code = 1605) negative On board controls acceptable with present C Line (test code = 3574) POCT PREG LOT # (test code = 3575) [id number] POCT PREG TEST DATE (test 01/03/2023 code = 3576) Lab Interpretation (test code = Normal 46035-1) [facility] [place] [facility], SPINE, THORACIC, WO [id number] 14:16:00Unlisted Reason for Exam - Click Yes and Enter Reason Below->No [facility] : 1995 Sex: [...] Titi Mcdaniels Verified Date/Time: 05/08/2020 14:16:40 -GLUCOSE [id number] 12:33:00 Test Item Value Reference Range Interpretation Comments POC-GLUCOSE METER 108 mg/dL 70-110 : TESTED A T 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 Jewelry Bench Molder ID - EDASIXR CHEST 1 [id number] 11:25:01Impression: No radiographic evidence for acute cardiopulmonary disease. RL: [id number] AFC: [id number] Indication: Cough, shortness of breath, wheezing Comparison: [...] iographic evidence for acute cardiopulmonary disease.RL: 460AFC: [id number] signed by Chey Jacome MD, PhD at 05/21/2019 6:25 AM [facility]
[2022-02-09 07:02] LABS: Urine Blood 3+ (Negative); Urine Glucose Negative (Negative); Urine Protein Trace (Negative); Urine Specific Gravity 1.025 (1.005-1.030); Urine pH 6.5 (5.0-7.0)
[2022-02-09 07:10] LABS: Urine Mucus Slight /HPF (None Seen); Urine RBC >50 /HPF (None Seen)
[2022-02-09 07:14] LABS: Urine Specific Gravity/Preg 1.025 (1.005-1.030)
[2022-02-09] MEDS ORDERED: MORPHINE 4 MG/ML SYR ONE ×2 (07:26→09:08)
[2022-02-09] MEDS ORDERED: NA CHLORIDE 0.9% 1,000 ML ONE (07:26)
[2022-02-09] MEDS ORDERED: FAMOTIDINE 20 MG/2 ML VIAL IV ONE (07:26)
[2022-02-09] MEDS ORDERED: ONDANSETRON 4 MG/2 ML VIAL ONE (07:26)
[2022-02-09 07:27] LABS: Absolute Lymphocytes (CBC) 1.8 K/uL (0.7-4.9); Hematocrit 39.5 % (36.0-45.0); Lymphocytes % 35.6 % (15.3-44.8); MCV 83.6 fL (80-100); MPV 8.2 fL (7.6-11.3); RBC Red Blood Cell Count 4.73 M/uL (3.86-4.86)
[2022-02-09 07:43] LABS: Albumin 3.3 g/dL (3.4-5.0); Bilirubin Total 0.2 mg/dL (0.2-1.0); Potassium 3.7 mmol/L (3.5-5.1); Protein, Total 7.1 g/dL (6.4-8.2)
--- NOTE | 2022-02-09 07:44 | EDPHYS ---
Physician Documentation [facility] Name: Heather Paul Age: 26 yrs Sex: Female : 1995 Arrival Date: 02/09/2022 Time: 06:18 Bed 19 Private MD: ED Physician Thompson Rudd HPI: 02/09 07:35 This 26 yrs old Black Female presents to ER via Ambulatory with complaints of Abdominal zak Pain. 07:35 The patient presents with pelvic pain, vaginal bleeding that is a desire for a zak test. Onset: The symptoms/episode began/occurred 2 day(s) ago. Modifying factors: The symptoms are alleviated by nothing, the symptoms are aggravated by movement, pressure. Associated signs and symptoms: Pertinent positives: vaginal bleeding. Severity of symptoms: At their worst the symptoms were mild, in the emergency department the symptoms are unchanged. The patient is sexually active, reportedly has a single partner. The patient has not experienced similar symptoms in the past. 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 - Social history:: Smoking status: Patient denies any tobacco usage or history of. - Family history:: not pertinent. ROS: 07:35 Constitutional: Negative for fever, chills, and weight loss, Eyes: Negative for injury, zak pain, redness, and discharge, ENT: Negative for injury, pain, and discharge, Neck: Negative for injury, pain, and swelling, Cardiovascular: Negative for chest pain, palpitations, and edema, Respiratory: Negative for shortness of breath, cough, wheezing, and pleuritic chest pain, Abdomen/GI: Negative for abdominal pain, nausea, vomiting, diarrhea, and constipation, Back: Negative for injury and pain, MS/Extremity: Negative for injury and deformity, Skin: Negative for injury, rash, and discoloration, Neuro: Negative for headache, weakness, numbness, tingling, and seizure, Psych: Negative for depression, anxiety, suicide ideation, homicidal ideation, and hallucinations, Allergy/Immunology: Negative for hives, rash, and allergies, Endocrine: Negative for neck swelling, polydipsia, polyuria, polyphagia, and marked weight changes, Hematologic/Lymphatic: Negative for swollen nodes, abnormal bleeding, and unusual bruising. 07:35 : Positive for pelvic pain, vaginal bleeding. Exam: 07:35 Constitutional: This is a well developed, well nourished patient who is awake, alert, zak and in no acute distress. Head/Face: Normocephalic, atraumatic. Eyes: Pupils equal round and reactive to light, extra-ocular motions intact. Lids and lashes normal. Conjunctiva and sclera are non-icteric and not injected. Cornea within normal limits. Periorbital areas with no swelling, redness, or edema. ENT: Nares patent. No nasal discharge, no septal abnormalities noted. Tympanic membranes are normal and external auditory canals are clear. Oropharynx with no redness, swelling, or masses, exudates, or evidence of obstruction, uvula midline. Mucous membranes moist. Neck: Trachea midline, no thyromegaly or masses palpated, and no cervical lymphadenopathy. Supple, full range of motion without nuchal rigidity, or vertebral point tenderness. No Meningismus. Chest/axilla: Normal chest wall appearance and motion. Nontender with no deformity. No lesions are appreciated. Cardiovascular: Regular rate and rhythm with a normal S1 and S2. No gallops, murmurs, or rubs. Normal PMI, no JVD. No pulse deficits. Respiratory: Lungs have equal breath sounds bilaterally, clear to auscultation and percussion. No rales, rhonchi or wheezes noted. No increased work of breathing, no retractions or nasal flaring. Back: No spinal tenderness. No costovertebral tenderness. Full range of motion. Skin: Warm, dry with normal turgor. Normal color with no rashes, no lesions, and no evidence of cellulitis. MS/ Extremity: Pulses equal, no cyanosis. Neurovascular intact. Full, normal range of motion. Neuro: Awake and alert, GCS 15, oriented to person, place, time, and situation. Cranial nerves II-XII grossly intact. Motor strength 5/5 in all extremities. Sensory grossly intact. Cerebellar exam normal. Normal gait. Psych: Awake, alert, with orientation to person, place and time. Behavior, mood, and affect are within normal limits. 07:35 Abdomen/GI: Inspection: distension, that is mild, Bowel sounds: normal, Palpation: mild abdominal tenderness, in the right lower quadrant, Liver: no appreciated palpable abnormalities, Hernia: not appreciated. Vital Signs: 06:41 BP 106 / 80; Pulse 73; Resp 19; Temp 98.2(O); Pulse Ox 100% ; Weight 94.8 kg; Height 5 kd3 ft. 7 in. (170.18 cm); 07:39 BP 107 / 83; Pulse 64; Resp 17; ll1 08:09 BP 107 / 75; Pulse 59; Resp 16; ll1 09:31 BP 91 / 55; Pulse 60; Resp 15; Temp 97.8; Pulse Ox 99% ; ll1 10:35 BP 94 / 47; Pulse 56; Resp 15; Pulse Ox 100% ; ll1 06:41 Body Mass Index 32.73 (94.80 kg, 170.18 cm) kd3 MDM: 06:34 Patient medically screened. zak 07:39 Data reviewed: vital signs, nurses notes, lab test result(s), radiologic studies, zak ultrasound. 02/09 06:35 Order name: CBC with Diff; Complete Time: 07:35 [facility] 02/09 06:35 Order name: CMP; Complete Time: 07:48 [facility] 02/09 06:35 Order name: Lipase; Complete Time: 07:48 [facility] 02/09 06:35 Order name: Urine Microscopic Only; Complete Time: 07:35 [facility] 02/09 07:02 Order name: Urine Dipstick-Ancillary; Complete Time: 07:35 EDMS 02/09 07:07 Order name: Urine --Ancillary (enter results); Complete Time: 07:35 bd 02/09 07:10 Order name: HCG-Quantitative; Complete Time: 07:48 bd 02/09 07:10 Order name: Rh Type bd 02/09 06:35 Order name: IV Saline Lock; Complete Time: 07:37 [facility] 02/09 06:35 Order name: Labs collected and sent; Complete Time: 07:02 [facility] 02/09 06:35 Order name: Urine Dipstick-Ancillary (obtain specimen); Complete Time: 07:03 [facility] 02/09 06:35 Order name: Urine Test (obtain specimen); Complete Time: 07:03 [facility] 02/09 07:13 Order name: Labs - recollect needed: recollect all labs; Complete Time: 07:37 bd Administered Medications: 07:30 Drug: NS 0.9% 1000 ml Route: IV; Rate: 1 bolus; Site: right antecubital; ll1 09:11 Follow up: Response: No adverse reaction; IV Status: Completed infusion; IV Intake: ll1 1000ml 07:37 Drug: Pepcid (famotidine) 20 mg Route: IVP; Site: right antecubital; ll1 08:12 Follow up: Response: No adverse reaction 1 07:38 Drug: Zofran (Ondansetron) 4 mg Route: IVP; Site: right antecubital; ll1 08:12 Follow up: Response: No adverse reaction 1 07:38 Drug: morphine 4 mg {Note: pain 8/10 rass O.} Route: IVP; Infused Over: 4 mins; Site: ll1 right antecubital; 08:13 Follow up: Response: No adverse reaction 1 09:11 Drug: morphine 4 mg {Note: pain 7/10, rass 0.} Route: IVP; Infused Over: 4 mins; Site: ll1 right antecubital; 10:49 Follow up: Response: No adverse reaction; Pain is decreased; RASS: Alert and Calm (0) [facility] Disposition Summary: 02/09/22 07:44 Discharge Ordered Location: Home zak Problem: new zak Symptoms: have improved zak Condition: Stable zak Diagnosis - Pelvic and perineal pain zak - Dysmenorrhea, unspecified zak Followup: zak - With: Private Physician - When: 2 - 3 days - Reason: Recheck today's complaints, Continuance of care, Re-evaluation by your physician Followup: zak - With: Alexandro Atkinson MD - When: 2 - 3 days - Reason: Recheck today's complaints, Continuance of care, Re-evaluation by your physician Discharge Instructions: - Discharge Summary Sheet zka - Dysmenorrhea zak - Pelvic Pain, Female, [id number] zak - Dysmenorrhea, [id number] zak Forms: - Medication Reconciliation Form zak - Thank You Letter zak - Antibiotic Education zak - Prescription Opioid Use zak - Work release form ll1 Signatures: Dispatcher [employer] Noemi Barbosa Corey, MD MD cha Garcia, Victoria, RN RN 1 Susan Muller RN RN 1 Minal Pelaez RN RN kd3 Corrections: (The following items were deleted from the chart) 07:37 07:11 Transvaginal Study (Probe)+US.RAD.BRZ ordered. EDMS EDMS
--- NOTE | 2022-02-09 07:44 | ER ---
Nurse's Notes [facility] Name: Heather Paul Age: 26 yrs Sex: Female : 1995 Arrival Date: 02/09/2022 Time: 06:18 Bed 19 Private MD: Diagnosis: Pelvic and perineal pain;Dysmenorrhea, unspecified Presentation: 02/09 06:41 Chief complaint: Patient states: I started spotting yesterday and my lower stomach kd3 hurts. I missed my period but i haven't taken a test. I am currently still spotting and this morning i got a headache. I have not been in contact with anyone sick. Coronavirus screen: Vaccine status: Patient reports receiving the 2nd dose of the covid vaccine. Ebola Screen: No symptoms or risks identified at this time. Initial Sepsis Screen: Does the patient meet any 2 criteria? No. Patient's initial sepsis screen is negative. Does the patient have a suspected source of infection? No. Patient's initial sepsis screen is negative. Risk Assessment: Do you want to hurt yourself or someone else? Patient reports no desire to harm self or others. Onset of symptoms was February 09, 2022. 06:41 Method Of Arrival: Ambulatory kd3 06:41 Acuity: ALISA 3 kd3 Triage Assessment: 06:43 General: Appears in no apparent distress. Behavior is calm, cooperative. Pain: kd3 Complains of pain in right lower quadrant and left lower quadrant. Neuro: Level of Consciousness is awake, alert, obeys commands, Oriented to person, place, time, situation. Respiratory: Airway is patent Trachea midline Respiratory effort is even, unlabored, Respiratory pattern is regular, symmetrical. GI: Abdomen is non-distended. 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 - Social history:: Smoking status: Patient denies any tobacco usage or history of. - Family history:: not pertinent. Screenin:40 Abuse screen: Denies threats or abuse. Nutritional screening: No deficits noted. ll1 Tuberculosis screening: No symptoms or risk factors identified. Fall Risk IV access (20 points). Total Vu Fall Scale indicates No Risk (0-24 pts). Assessment: 07:05 Reassessment: No changes from previously documented assessment. report received from 1 expense clerk RN. 07:40 Reassessment: No changes from previously documented assessment. Patient and/or family ll1 updated on plan of care and expected duration. Pain level reassessed. Patient is alert, oriented x 3, equal unlabored respirations, skin warm/dry/pink. 08:10 Reassessment: No changes from previously documented assessment. Patient and/or family ll1 updated on plan of care and expected duration. Pain level reassessed. Patient is alert, oriented x 3, equal unlabored respirations, skin warm/dry/pink. Patient states feeling better. 09:00 Reassessment: No changes from previously documented assessment. ll1 10:48 GI: Bowel sounds present X 4 quads. Abd is soft and non tender X 4 quads. 1 Vital Signs: 06:41 BP 106 / 80; Pulse 73; Resp 19; Temp 98.2(O); Pulse Ox 100% ; Weight 94.8 kg; Height 5 kd3 ft. 7 in. (170.18 cm); 07:39 BP 107 / 83; Pulse 64; Resp 17; ll1 08:09 BP 107 / 75; Pulse 59; Resp 16; ll1 09:31 BP 91 / 55; Pulse 60; Resp 15; Temp 97.8; Pulse Ox 99% ; ll1 10:35 BP 94 / 47; Pulse 56; Resp 15; Pulse Ox 100% ; ll1 06:41 Body Mass Index 32.73 (94.80 kg, 170.18 cm) kd3 ED Course: 06:18 Patient arrived in ED. ja2 06:34 Thompson Rudd MD is Attending Physician. zak 06:41 Minal Pelaez, CHRISTEN is Primary Nurse. kd3 06:43 Triage completed. kd3 06:43 Arm band placed on right wrist. kd3 07:02 CBC with Diff Sent. kd3 07:03 CMP Sent. kd3 07:03 Lipase Sent. kd3 07:03 Urine Microscopic Only Sent. kd3 07:20 Inserted saline lock: 22 gauge in right antecubital area, using aseptic technique. ll1 Blood collected. 07:41 Patient has correct armband on for positive identification. Bed in low position. Call ll1 light in reach. Client placed on continuous cardiac and pulse oximetry monitoring. NIBP monitoring applied. 07:44 Alexandro Atkinson MD is Referral Physician. zak 10:43 No provider procedures requiring assistance completed. IV discontinued, intact, iw bleeding controlled, No redness/swelling at site. Pressure dressing applied. Administered Medications: 07:30 Drug: NS 0.9% 1000 ml Route: IV; Rate: 1 bolus; Site: right antecubital; ll1 09:11 Follow up: Response: No adverse reaction; IV Status: Completed infusion; IV Intake: ll1 1000ml 07:37 Drug: Pepcid (famotidine) 20 mg Route: IVP; Site: right antecubital; ll1 08:12 Follow up: Response: No adverse reaction ll1 07:38 Drug: Zofran (Ondansetron) 4 mg Route: IVP; Site: right antecubital; ll1 08:12 Follow up: Response: No adverse reaction 1 07:38 Drug: morphine 4 mg {Note: pain 8/10 rass O.} Route: IVP; Infused Over: 4 mins; Site: ll1 right antecubital; 08:13 Follow up: Response: No adverse reaction ll1 09:11 Drug: morphine 4 mg {Note: pain 7/10, rass 0.} Route: IVP; Infused Over: 4 mins; Site: ll1 right antecubital; 10:49 Follow up: Response: No adverse reaction; Pain is decreased; RASS: Alert and Calm (0) ll1 Medication: 07:40 VIS not applicable for this client. ll1 Intake: 09:11 IV: 1000ml; Total: 1000ml. ll1 Outcome: 07:44 Discharge ordered by . zak 10:43 Discharged to home ambulatory, with family. iw 10:43 Condition: good 10:43 Discharge instructions given to patient, Instructed on discharge instructions, follow up and referral plans. medication usage, Demonstrated understanding of instructions, follow-up care. 10:43 Patient left the ED. iw Signatures: Thompson Rudd MD MD cha Williams, Irene, RN RN iw Susan Muller RN RN ll1 Lilliam Bone2 Minal Pelaez RN RN kd3
[2022-02-09 14:40] VITALS: BP 91/55; TEMP 97.8; O2SAT 99
== END 2022-02-09 10:43 | disposition home or self-care (01) ==
LOC: ER 06:14
DX: N94.6 Dysmenorrhea, unspecified (principal)
CPT/HCPCS: 96361; 85025; 36415; 81025; 84702; 83690; 80053; 96375; 96374; 99284; J7030; J2405; 81003; 81015

== ENCOUNTER 2023-10-12 11:32 | Emergency (ER) | payer OTHER ==
[2023-10-12 12:33] LABS: SARS-CoV-2 Antigen CONTROL BLUE LINE VIS/BG OK; SARS-CoV-2 Antigen Rapid Res Negative (Negative)
[2023-10-12 13:07] LABS: Absolute Basophils 0.1 K/uL (0-0.5); Absolute Lymphocytes (CBC) 1.5 K/uL (0.7-4.9); Absolute Monocytes 1.2 K/uL (0.1-1.3); Absolute Neutrophil 9.2 K/uL (1.8-8.0); Basophils % 0.7 % (0-1.3); Eosinophils % 0.3 % (0-4.4); Hemoglobin 12.4 g/dL (12.0-15.0); Lymphocytes % 12.4 % (15.3-44.8); MCH 26.5 pg (27.0-35.0); MCHC 31.6 g/dL (32.0-36.0); MCV 83.8 fL (80-100); MPV 8.5 fL (7.6-11.3); Monocytes % 9.9 % (3.3-12.3); Neutrophils % 76.7 % (41.7-73.7); Platelets 270 thou/uL (152-406); RBC Red Blood Cell Count 4.66 M/uL (3.86-4.86); Red Cell Distribution Width 14.4 % (12.1-15.2)
[2023-10-12 13:20] LABS: Specific Gravity > 1.030 (1.005-1.030)
[2023-10-12 13:25] LABS: Specific Gravity > 1.030 (1.005-1.030); Sqamous Epithelial 20-50 /HPF (None Seen); Urine Bacteria <20 /HPF (<20); Urine Bilirubin NEGATIVE (Negative); Urine Blood 3+ (OVER) (Negative); Urine Clarity Extremely Turbid (Clear); Urine Color Yellow (Yellow); Urine Culture Reflex Order NOT NEEDED; Urine Glucose NEGATIVE (Negative); Urine Ketones 1+ (Negative); Urine Microscopic Reflex YN ORDER UMIC; Urine Mucus 4+ /HPF (None Seen); Urine Nitrite NEGATIVE (Negative); Urine Protein 1+ (Negative); Urine RBC >50 /HPF (None Seen); Urine Urobilinogen Normal (Normal)
[2023-10-12] MEDS ORDERED: ONDANSETRON 4 MG/2 ML VIAL ONE (13:36)
[2023-10-12] MEDS ORDERED: KETOROLAC 30 MG/ML INJ ONE (13:37)
[2023-10-12] MEDS ORDERED: NA CHLORIDE 0.9% 500 ML ONE (13:37)
[2023-10-12] MEDS ORDERED: CEFTRIAXONE 2000 MG/VIAL ONE (14:14)
--- NOTE | 2023-10-12 14:32 | ER ---
Nurse's Notes [facility] Name: Heather Paul Age: 28 yrs Sex: Female : 1995 Arrival Date: 10/12/2023 Time: 11:32 Bed 10 Private MD: Diagnosis: Fever, unspecified;UTI/ Urinary tract infection, site not specified;Acute pharyngitis, unspecified Presentation: 10/11 11:46 Chief complaint: Patient states: she has been having cough, sore throat, fever, chills, ap3 nausea and body aches that started yesterday. patient also reports right sided abdominal pain that started yesterday as well. Coronavirus screen: Client presents with at least one sign or symptom that may indicate coronavirus-19. Ebola Screen: No symptoms or risks identified at this time. Risk Assessment: Do you want to hurt yourself or someone else? Patient reports no desire to harm self or others. Onset of symptoms was October 11, 2023. 11:46 Method Of Arrival: Ambulatory ap3 11:49 Initial Sepsis Screen: Does the patient meet any 2 criteria? HR > 90 bpm. Does the ap3 patient have a suspected source of infection? No. Patient's initial sepsis screen is negative. 11:49 Acuity: ALISA 4 ap3 Triage Assessment: 11:48 General: Appears in no apparent distress. Behavior is calm, cooperative, appropriate ap3 for age. Pain: Complains of pain in generalized body aches Pain began 2-3 days ago. Neuro: Level of Consciousness is awake, alert, obeys commands, Oriented to person, place, time, situation, Appropriate for age. Cardiovascular: Patient's skin is warm and dry. Respiratory: Reports cough that is Airway is patent Respiratory effort is even, unlabored, Respiratory pattern is regular, symmetrical. GI: Reports lower abdominal pain, upper abdominal pain, nausea, vomiting. 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 - Infectious Disease History:: Denies. - Social history:: Smoking status: Patient denies any tobacco usage or history of. Screenin:49 [facility] ED Fall Risk Assessment (Adult) History of falling in the last 3 months, ap3 including since admission No falls in past 3 months (0 pts) Confusion or Disorientation No (0 pts) Intoxicated or Sedated No (0 pts) Impaired Gait No (0 pts) Mobility Assist Device Used No (0 pt) Altered Elimination No (0 pt) Score/Fall Risk Level 0 - 2 = Low Risk Oriented to surroundings, Maintained a safe environment, Educated pt \T\ family on fall prevention, incl call for assistance when getting out of bed, Assessed \T\ reinforced patient's understanding of fall precautions, Hourly rounding (assess needs \T\ fall precautionary measures) done, Used ambulatory aids as needed (educated on \T\ assisted with), Used gait belt as appropriate. Abuse screen: Denies threats or abuse. Nutritional screening: No deficits noted. Tuberculosis screening: No symptoms or risk factors identified. Assessment: 13:45 Reassessment: Patient and/or family updated on plan of care and expected duration. Pain ap3 level reassessed. Patient is alert, oriented x 3, equal unlabored respirations, skin warm/dry/pink. General: Appears comfortable, Behavior is calm, cooperative, appropriate for age. Neuro: Level of Consciousness is awake, alert, obeys commands, Oriented to person, place, time, situation, Appropriate for age. Cardiovascular: Patient's skin is warm and dry. Respiratory: Airway is patent Respiratory effort is even, unlabored, Respiratory pattern is regular, symmetrical. Vital Signs: 11:49 BP 118 / 73; Pulse 104; Resp 17; Temp 98.8; Pulse Ox 100% ; Weight 92.99 kg; Height 5 ap3 ft. 7 in. ; Pain 8/10; 11:49 Body Mass Index 32.11 (92.99 kg, 170.18 cm) ap3 11:49 Pain Scale: Adult ap3 ED Course: 11:36 Patient arrived in ED. im 11:46 Sinan Sepulveda MD is Attending Physician. rn 11:49 Arm band placed on right wrist. ap3 11:49 Patient has correct armband on for positive identification. ap3 11:51 Triage completed. ap3 11:52 No provider procedures requiring assistance completed. ap3 11:55 Attending Physician role handed off by Sinan Sepulveda MD bo1 11:55 Angel Bernal MD is Attending Physician. bo1 12:55 Initial lab(s) drawn, by md, sent to lab. Inserted saline lock: 20 gauge in right ap3 antecubital area, using aseptic technique. Blood collected. 13:55 Kaia Chavez, RN is Primary Nurse. ap3 14:57 IV discontinued, intact, bleeding controlled, No redness/swelling at site. Pressure ap3 dressing applied. 14:59 Provided Education on: discharge instructions. ap3 Administered Medications: 13:42 Drug: Ketorolac IVP 30 mg IVP once Route: IVP; Site: right antecubital; ap3 15:00 Follow up: Response: No adverse reaction ap3 13:42 Drug: Ondansetron IVP 4 mg IVP once; over 2 minutes Route: IVP; Site: right antecubital;ap3 15:00 Follow up: Response: No adverse reaction; Nausea is decreased ap3 13:42 Drug: NS 0.9% IV 500 ml IV at bolus once Route: IV; Rate: bolus; Site: right ap3 antecubital; 14:59 Follow up: IV Status: Completed infusion; IV Intake: 500ml ap3 14:19 Drug: Rocephin IV 2 grams IV at bolus once; Given slow IV push per pharmarcy ap3 instructions Route: IV; Rate: bolus; Site: right antecubital; 14:59 Follow up: IV Status: Completed infusion ap3 Medication: 14:59 VIS not applicable for this client. ap3 Intake: 14:59 IV: 500ml; Total: 500ml. ap3 Outcome: 14:31 Discharge ordered by . bo1 14:57 Discharged to home ambulatory, ap3 14:57 Condition: good 14:57 Discharge instructions given to patient, Instructed on discharge instructions, follow up and referral plans. Demonstrated understanding of instructions, follow-up care, medications, Prescriptions given X 2, 15:00 Patient left the ED. ap3 Signatures: Sinan Sepulveda MD MD rn Prokisch, Amanda, RN RN ap3 Sandee Tenorio Benjamin, MD MD bo1 Corrections: (The following items were deleted from the chart) 12:56 12:56 CBC+H.LAB.BRZ drawn and sent. ap3 EDMS
--- NOTE | 2023-10-12 14:32 | EDPHYS ---
Physician Documentation [facility] Name: Heather Paul Age: 28 yrs Sex: Female : 1995 Arrival Date: 10/12/2023 Time: 11:32 Bed 10 Private MD: ED Physician Angel Bernal HPI: 10/11 20:44 This 28 yrs old Black Female presents to ER via Ambulatory with complaints of Flu bo1 Symptoms. 20:44 Pt c/o of a sorethroat, feeling ill at work but started 2 days ago. Onset: The bo1 symptoms/episode began/occurred gradually, 2 day(s) ago. Severity of symptoms: At their worst the symptoms were moderate today. Pt states she felt hot but did not take her temp. She works for [employer]. 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 - Infectious Disease History:: Denies. - Social history:: Smoking status: Patient denies any tobacco usage or history of. ROS: 20:45 Constitutional: Positive for body aches, Sorethroat, bo1 20:45 ENT: Positive for sore throat, 20:45 Neck: Negative for pain with movement, pain at rest, stiffness, swelling, swollen nodes, 20:45 Cardiovascular: Negative for chest pain, 20:45 Respiratory: Negative for cough, shortness of breath, 20:45 Abdomen/GI: Negative for abdominal pain, nausea and vomiting, nausea, vomiting, and diarrhea, 20:45 : Negative for urinary symptoms, Pt denies any new or unusual symptoms, 20:45 Skin: Negative for rash, acute changes, 20:48 Constitutional: Negative for weight loss bo1 Exam: 20:48 Constitutional: This is a well developed, well nourished patient who is awake, alert, bo1 and feeling discomfort. 20:48 Head/face: Exam is negative for acute changes, 20:48 Eyes: Exam is negative for acute changes, 20:48 Neck: External neck: no acute changes, Lymph nodes: no appreciated lymphadenopathy, 20:48 Cardiovascular: Pulses: no pulse deficits are appreciated, 20:48 Respiratory: Exam negative for acute changes, 20:48 Abdomen/GI: Inspection: abdomen appears normal, Palpation: abdomen is soft and non-tender, rebound tenderness, is not appreciated, 20:48 Musculoskeletal/extremity: Extremities: all appear grossly normal, with no appreciated pain with palpation, 20:48 Skin: no rash present. 20:49 Back: CVA tenderness, is absent, bo1 20:50 Respiratory: Breath sounds: are clear throughout, wheezing: is not appreciated, bo1 Vital Signs: 11:49 BP 118 / 73; Pulse 104; Resp 17; Temp 98.8; Pulse Ox 100% ; Weight 92.99 kg; Height 5 ap3 ft. 7 in. ; Pain 8/10; 11:49 Body Mass Index 32.11 (92.99 kg, 170.18 cm) ap3 11:49 Pain Scale: Adult ap3 MDM: 11:44 Patient medically screened. bo1 12:34 Patient medically screened. bo1 20:47 Differential Diagnosis flu, Covid/strep or UTI causing myalgias . ED course: Pt was bo1 symptomatically better with IVF and meds. 20:47 Data reviewed: vital signs, lab test result(s), CBC, electrolytes, Flu: urinalysis, bo1 Covid and strep screen. 10/11 11:52 Order name: SARS RAPID; Complete Time: 12:34 ap3 10/11 11:52 Order name: Flu; Complete Time: 12:34 ap3 10/11 12:35 Order name: CBC with Diff; Complete Time: 13:25 bo1 10/11 12:35 Order name: Test, Urine; Complete Time: 13:25 bo1 10/11 12:35 Order name: Urinalysis w/ reflexes; Complete Time: 13:34 bo1 10/11 12:45 Order name: Strep bo1 10/11 14:09 Order name: Throat Culture EDSC 10/11 12:35 Order name: IV Saline Lock; Complete Time: 12:56 bo1 10/11 12:35 Order name: Labs collected and sent; Complete Time: 12:56 bo1 Administered Medications: 13:42 Drug: Ketorolac IVP 30 mg IVP once Route: IVP; Site: right antecubital; ap3 15:00 Follow up: Response: No adverse reaction ap3 13:42 Drug: Ondansetron IVP 4 mg IVP once; over 2 minutes Route: IVP; Site: right antecubital;ap3 15:00 Follow up: Response: No adverse reaction; Nausea is decreased ap3 13:42 Drug: NS 0.9% IV 500 ml IV at bolus once Route: IV; Rate: bolus; Site: right ap3 antecubital; 14:59 Follow up: IV Status: Completed infusion; IV Intake: 500ml ap3 14:19 Drug: Rocephin IV 2 grams IV at bolus once; Given slow IV push per pharmarcy ap3 instructions Route: IV; Rate: bolus; Site: right antecubital; 14:59 Follow up: IV Status: Completed infusion ap3 Disposition Summary: 10/12/23 14:31 Discharge Ordered Notes: Location: Home bo1 Problem: new bo1 Symptoms: have improved bo1 Condition: Stable bo1 Diagnosis - Fever, unspecified bo1 - UTI/ Urinary tract infection, site not specified bo1 - Acute pharyngitis, unspecified bo1 Followup: bo1 - With: Private Physician - When: 2 - 3 days - Reason: Recheck today's complaints Discharge Instructions: - Discharge Summary Sheet bo1 - Pyelonephritis, Adult, [id number] bo1 - Urinary Tract Infection, Adult, [id number] bo1 - Sore Throat, [id number] bo1 Forms: - Work release form bo1 - Medication Reconciliation Form bo1 - Antibiotic Education bo1 - Prescription Opioid Use bo1 - Patient Portal Instructions bo1 - Leadership Thank You Letter bo1 Prescriptions: - ketorolac 10 mg Oral tablet - take 1 tablet ORAL route every 8 hours for 2 days as needed for pain; 6 tablet; bo1 Refills: 0, Product Selection Permitted - Cipro 500 mg Oral Tablet - take 1 tablet ORAL route every 12 hours for 10 days; 20 tablet; Refills: 0, bo1 Product Selection Permitted Signatures: Dispatcher [employer] Kaia Samuel RN RN ap3 OeiAngel MD MD bo1 Corrections: (The following items were deleted from the chart) 12:56 12:35 CBC+H.LAB.BRZ ordered. EDMS EDMS
[2023-10-12 15:13] VITALS: BP 118/73; TEMP 98.8; O2SAT 100
== END 2023-10-12 15:00 | disposition home or self-care (01) ==
LOC: ER 11:32
DX: J02.9 Acute pharyngitis, unspecified (principal); R50.9 Fever, unspecified; N39.0 Urinary tract infection, site not specified; J45.909 Unspecified asthma, uncomplicated; Z11.52 Encounter for screening for COVID-19
CPT/HCPCS: 36415; 81001; 81025; 85025; 87070; 87081; 87804; 87811; 96361; 96365; 96375; 99284; J0696; J2405; J7040

== ENCOUNTER 2024-07-24 15:25 | Emergency (ER) | payer BC, OTHER ==
[2024-07-24 16:22] LABS: Absolute Basophils 0.1 K/uL (0-0.5); Absolute Eosinophils 0.1 K/uL (0-0.5); Absolute Monocytes 0.7 K/uL (0.1-1.3); Absolute Neutrophil 3.1 K/uL (1.8-8.0); Basophils % 0.9 % (0-1.3); Eosinophils % 2.3 % (0-4.4); Hematocrit 40.6 % (36.0-45.0); Hemoglobin 13.2 g/dL (12.0-15.0); Lymphocytes % 33.7 % (15.3-44.8); MCH 27.1 pg (27.0-35.0); MCHC 32.5 g/dL (32.0-36.0); MCV 83.2 fL (80-100); MPV 8.8 fL (7.6-11.3); Monocytes % 10.9 % (3.3-12.3); Neutrophils % 52.2 % (41.7-73.7); Nucleated Red Blood Cells % 0.1 % (0-0); Platelets 299 thou/uL (152-406); RBC Red Blood Cell Count 4.87 M/uL (3.86-4.86); Red Cell Distribution Width 13.7 % (12.1-15.2)
[2024-07-24 16:22] LABS: Specific Gravity > 1.030 (1.005-1.030)
[2024-07-24 16:23] LABS: Specific Gravity > 1.030 (1.005-1.030); Urine Bacteria <20 /HPF (<20); Urine Bilirubin NEGATIVE (Negative); Urine Blood 3+ (OVER) (Negative); Urine Clarity Extremely Turbid (Clear); Urine Color Light-Yellow (Yellow); Urine Crystals Unidentified Few /HPF (None Seen); Urine Culture Reflex Order NOT NEEDED; Urine Glucose NEGATIVE (Negative); Urine Ketones NEGATIVE (Negative); Urine Microscopic Reflex YN ORDER UMIC; Urine Mucus 2+ /HPF (None Seen); Urine Nitrite NEGATIVE (Negative); Urine Protein 1+ (Negative); Urine RBC >50 /HPF (None Seen); Urine Urobilinogen Normal (Normal); Urine WBC <5 /HPF (<5); Urine pH 6.5 (5.0-7.0)
[2024-07-24 16:41] LABS: Anion Gap 6.8 mEq/L (5.0-15.0); BUN Blood Urea Nitrogen 12 mg/dL (7-18); Bicarbonate 29 mEq/L (21-32); Glomerular Filtration Rate 58 ml/min (=/>90); Glucose Level 97 mg/dL (74-106); Potassium 3.8 mEq/L (3.5-5.1); Sodium Level 139 mEq/L (136-145)
--- NOTE | 2024-07-24 16:55 | RAD REPORT ---
EXAM: Transvaginal OB HISTORY: Abd cramping, ;Vaginal bleeding COMPARISON: None TECHNIQUE: Multiple grayscale and color Doppler images were obtained in a transvaginal pelvic ultraso und. Spectral analysis of the Doppler waveforms of the ovaries were performed. FINDINGS: UTERUS: No IUP identified. Uterus measures 9.2 x 4.7 x 5.3 cm. No free fluid is seen in the pelvis. RIGHT OVARY: Nonvisualized. LEFT OVARY: Normal flow without focal mass. IMPRESSION: 1. No IUP identified. Provided clinical history obtained by the inclusion intern was that the patient had an ultrasound documenting an IUP yesterday, presumably at an outside facility. Images not available for comparison. If so, this would indicate a failed first trimester . 2. Left ovary is unremarkable. Right ovary not visualized.
[2024-07-24 17:04] LABS: HCG, Quantitative < 1 mIU/mL (1-3)
--- NOTE | 2024-07-24 17:13 | ER ---
Nurse's Notes [facility] Name: Heather Paul Age: 28 yrs Sex: Female : 1995 Arrival Date: 07/24/2024 Time: 15:25 Bed DX4 Private MD: Diagnosis: Abnormal uterine and vaginal bleeding, unspecified Presentation: 07/24 15:52 Chief complaint: Patient states: Vaginal bleeding for 2 days. Heavy bleeding with blood hb clots today. G2, P1. Coronavirus screen: Client denies travel out of the [place] in the last 14 days. At this time, the client does not indicate any symptoms associated with coronavirus-19. Ebola Screen: Patient denies travel to an Ebola-affected area in the 21 days before illness onset. Initial Sepsis Screen: Does the patient meet any 2 criteria? No. Patient's initial sepsis screen is negative. Does the patient have a suspected source of infection? No. Patient's initial sepsis screen is negative. Risk Assessment: Do you want to hurt yourself or someone else? Patient reports no desire to harm self or others. Onset of symptoms was July 23, 2024. 15:52 Method Of Arrival: Ambulatory hb 15:52 Acuity: ALISA 3 hb Triage Assessment: 15:53 General: Appears uncomfortable, Behavior is calm, cooperative, appropriate for age. ll1 Pain: Complains of pain in pelvis Quality of pain is described as crampy. Neuro: No deficits noted. : Reports vaginal bleeding that is with clots, moderate flow. MANAGER QUALITY IMPROVEMENT: 17:28 LMP N/A - control method, Not ll1 Historical: - Allergies: 15:53 NKA; hb - PMHx: 15:53 Asthma; hb - Immunization history:: Adult Immunizations up to date. - Infectious Disease History:: Denies. - Social history:: Smoking status: Patient denies any tobacco usage or history of. Screenin:27 [facility] ED Fall Risk Assessment (Adult) History of falling in the last 3 months, ll1 including since admission No falls in past 3 months (0 pts) Confusion or Disorientation No (0 pts) Intoxicated or Sedated No (0 pts) Impaired Gait No (0 pts) Mobility Assist Device Used No (0 pt) Altered Elimination No (0 pt) Score/Fall Risk Level 0 - 2 = Low Risk Maintained a safe environment, Hourly rounding (assess needs \T\ fall precautionary measures) done. Abuse screen: Denies threats or abuse. Nutritional screening: No deficits noted. Tuberculosis screening: No symptoms or risk factors identified. Assessment: 17:26 Reassessment: No changes from previously documented assessment. Patient and/or family ll1 updated on plan of care and expected duration. Pain level reassessed. Patient is alert, oriented x 3, equal unlabored respirations, skin warm/dry/pink. 17:29 Obstetrical Assessment: n/a. ll1 Vital Signs: 15:55 BP 123 / 79; Pulse 88; Resp 17; Temp 97.1; Pulse Ox 100% ; Weight 92.99 kg; Height 5 hb ft. 7 in. ; Pain 7/10; 17:26 BP 112 / 63; Pulse 77; Resp 17; Pulse Ox 100% ; ll1 15:55 Body Mass Index 32.11 (92.99 kg, 170.18 cm) hb 15:55 Pain Scale: Adult hb Vitals: 17:28 Heart Tones n/a. ll1 ED Course: 15:27 Patient arrived in ED. mr 15:30 [facility] Lopez [facility]C [facility] kb 15:30 Fer Waggoner MD is Attending Physician. kb 15:52 Arm band placed on. hb 15:53 Triage completed. hb 16:10 Abo/rh Typing Sent. bc6 16:10 Basic Metabolic Panel Sent. bc6 16:10 CBC with Diff Sent. bc6 16:10 Quantitative Hcg Sent. bc6 16:10 Initial lab(s) drawn, by ct, sent to lab. Inserted saline lock: 20 gauge in right bc6 antecubital area, using aseptic technique. Blood collected. Flushed with 10 mL NS. 16:37 US Transvaginal Ob In Process Unspecified. EDMS 17:26 No provider procedures requiring assistance completed. IV discontinued, intact, ll1 bleeding controlled, No redness/swelling at site. Pressure dressing applied. 17:27 Patient has correct armband on for positive identification. Provided Education on: ER ll1 procedures and process. Administered Medications: No medications were administered Medication: 17:28 VIS not applicable for this client. ll1 Point of Care Testing: Urine : 17:29 hCG Reading: Negative; ll1 Outcome: 17:13 Discharge ordered by MD. kb 17:27 Discharged to home ambulatory, ll1 17:27 Condition: stable 17:27 Discharge instructions given to patient, Instructed on discharge instructions, follow up and referral plans. Demonstrated understanding of instructions, follow-up care, 17:29 Patient left the ED. ll1 Signatures: Dispatcher [employer] EDMS Farheen Lopez, CHIEF SCIENTIST-C CHIEF SCIENTIST-Ckb Nasra Tavares, Reg Reg mr Marge Romano, RN Susan Obrien RN RN ll1 Aileen Harper bc6
--- NOTE | 2024-07-24 17:14 | EDPHYS ---
Physician Documentation [facility] Name: Heather Paul Age: 28 yrs Sex: Female : 1995 Arrival Date: 07/24/2024 Time: 15:25 Bed DX4 Private MD: ED Physician Fer Waggoner HPI: 07/24 17:20 This 28 yrs old Black Female presents to ER via Ambulatory with complaints of Vaginal kb Bleeding, + Preg <12wks. 17:20 Pt is a 28 year old female who presents for vaginal bleeding that started 3 days ago kb and became worse today. States she passed multiple clots this morning so she believes she had a miscarriage. States she had an US yesterday that showed an IUP at [facility]. LMP 06/04/24. A0. 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 - Infectious Disease History:: Denies. - Social history:: Smoking status: Patient denies any tobacco usage or history of. ROS: 17:20 Constitutional: As per HPI kb Exam: 17:20 Constitutional: This is a well developed, well nourished patient who is awake, alert, kb and in no acute distress. Head/Face: Normocephalic, atraumatic. ENT: Moist Mucous membranes Cardiovascular: Regular rate Respiratory: Respirations even and unlabored. No increased work of breathing. Talking in full sentences Skin: Warm, dry with normal turgor. Normal color. MS/ Extremity: Pulses equal, no cyanosis. Neurovascular intact. Full, normal range of motion. Neuro: Awake and alert, GCS 15, oriented to person, place, time, and situation. 17:20 Abdomen/GI: Inspection: abdomen appears normal, Bowel sounds: normal, Palpation: soft, in all quadrants, mild abdominal tenderness, in all quadrants, Vital Signs: 15:55 BP 123 / 79; Pulse 88; Resp 17; Temp 97.1; Pulse Ox 100% ; Weight 92.99 kg; Height 5 hb ft. 7 in. ; Pain 7/10; 17:26 BP 112 / 63; Pulse 77; Resp 17; Pulse Ox 100% ; ll1 15:55 Body Mass Index 32.11 (92.99 kg, 170.18 cm) hb 15:55 Pain Scale: Adult hb MDM: 15:31 Medical Screening Exam initiated kb 17:22 Differential diagnosis: threatened Ab, complete Ab, ectopic . Data reviewed: kb vital signs, nurses notes. Counseling: I had a detailed discussion with the patient and/or guardian regarding the historical points, exam findings, and any diagnostic results supporting the discharge/admit diagnosis, lab results, radiology results, the need for outpatient follow up, an OB/Gyne specialist, to return to the emergency department if symptoms worsen or persist or if there are any questions or concerns that arise at home. 07/24 15:55 Order name: Abo/rh Typing; Complete Time: 17:02 kb 07/24 15:55 Order name: Basic Metabolic Panel; Complete Time: 17:05 kb 07/24 15:55 Order name: CBC with Diff; Complete Time: 16:28 kb 07/24 15:55 Order name: Test, Urine; Complete Time: 16:23 kb 07/24 15:55 Order name: Quantitative Hcg; Complete Time: 17:05 kb 07/24 15:55 Order name: UA Rfx Jameson Cult if indicated; Complete Time: 16:23 kb 07/24 15:55 Order name: US Transvaginal Ob; Complete Time: 17:02 kb 07/24 15:55 Order name: IV Saline Lock; Complete Time: 16:10 kb 07/24 15:55 Order name: Labs collected and sent; Complete Time: 16:10 kb 07/24 15:55 Order name: NPO; Complete Time: 16:10 kb Administered Medications: No medications were administered Point of Care Testing: Urine : 17:29 hCG Reading: Negative; ll1 Disposition Summary: 07/24/24 17:13 Discharge Ordered Notes: Location: Home kb Condition: Stable kb Diagnosis - Abnormal uterine and vaginal bleeding, unspecified kb Followup: kb - With: Emergency Department - When: As needed - Reason: Worsening of condition Followup: kb - With: Private Physician - When: 2 - 3 days - Reason: Recheck today's complaints, Continuance of care, Re-evaluation by your physician Discharge Instructions: - Discharge Summary Sheet kb - Abnormal Uterine Bleeding, [id number] kb Forms: - Medication Reconciliation Form kb - Antibiotic Education kb - Prescription Opioid Use kb - Patient Portal Instructions kb - Leadership Thank You Letter kb Signatures: Dispatcher [employer] EDMS Farheen Lopez, INSULATION AND FLOORING ASSEMBLER-C INSULATION AND FLOORING ASSEMBLER-Marge Monge, RN RN Susan Muller RN RN ll1 Corrections: (The following items were deleted from the chart) 15:55 15:55 ABO/RH TYPING+BB.LAB.BRZ ordered. EDMS EDMS 15:55 15:55 BASIC METABOLIC PANEL+C.LAB.BRZ ordered. EDMS EDMS 15:55 15:55 CBC+H.LAB.BRZ ordered. EDMS EDMS 15:55 15:55 Test, Urine+UC.LAB.BRZ ordered. EDMS EDMS 15:55 15:55 QUANTITATIVE HCG+C.LAB.BRZ ordered. EDMS EDMS 15:55 15:55 UA Rfx Jameson Cult if indicated+U.LAB.BRZ ordered. EDMS EDMS 15:55 15:55 Transvaginal Ob+US.RAD.BRZ ordered. EDMS EDMS
== END 2024-07-24 17:29 | disposition home or self-care (01) ==
LOC: ER 15:25
DX: N93.9 Abnormal uterine and vaginal bleeding, unspecified (principal)
CPT/HCPCS: 36415; 76817; 80048; 81001; 81025; 84702; 85025; 86900; 86901